=== PATIENT | male | born 1955 | race Caucasian/White ===

== ENCOUNTER → 2016-10-12 | Outpatient (CLI) | payer MEDICARE, OTHER ==
[~2016-10-12] MED LIST: CLOP75TA19 PO; INSU100V27 SQ; INSU100V28 SQ; LISI2.5T2 PO; MELA1TAB8 PO; OMEP20TA24 PO; PRAV20TA4 PO; TAMS0.4C20 PO
== END ==
LOC: NWCC 14:25
PROVIDERS: ATTEND Internal Medicine
DX: T81.89XA Other complications of procedures, not elsewhere classified, initial encounter (principal); Y83.8 Other surgical procedures as the cause of abnormal reaction of the patient, or of later complication, without mention of misadventure at the time of the procedure; W23.0XXS Caught, crushed, jammed, or pinched between moving objects, sequela; M86.171 Other acute osteomyelitis, right ankle and foot; Z89.411 Acquired absence of right great toe
CPT/HCPCS: A6209; A6210; G0463

== ENCOUNTER → 2016-10-18 | Outpatient (CLI) | payer MEDICARE, OTHER | LOC: NWCC 07:52 | PROVIDERS: ATTEND Internal Medicine | DX: S91.101A Unspecified open wound of right great toe without damage to nail, initial encounter (principal); Z89.411 Acquired absence of right great toe | CPT/HCPCS: A6209; A6210; G0463 ==

== ENCOUNTER → 2016-10-29 | Outpatient (CLI) | payer MEDICARE, OTHER | LOC: NWCC 08:29 | PROVIDERS: ATTEND Internal Medicine | DX: T87.89 Other complications of amputation stump (principal); Y83.8 Other surgical procedures as the cause of abnormal reaction of the patient, or of later complication, without mention of misadventure at the time of the procedure; W23.0XXS Caught, crushed, jammed, or pinched between moving objects, sequela; M86.171 Other acute osteomyelitis, right ankle and foot; Z89.411 Acquired absence of right great toe | CPT/HCPCS: 11042; A6209 ==

== ENCOUNTER → 2016-11-02 | Outpatient (CLI) | payer MEDICARE, OTHER | LOC: NWCC 08:32 | PROVIDERS: ATTEND Internal Medicine | DX: T87.9 Unspecified complications of amputation stump (principal); Y83.8 Other surgical procedures as the cause of abnormal reaction of the patient, or of later complication, without mention of misadventure at the time of the procedure; W23.0XXS Caught, crushed, jammed, or pinched between moving objects, sequela | CPT/HCPCS: A6209; A6210; G0463 ==

== ENCOUNTER → 2016-11-05 | Outpatient (CLI) | payer MEDICARE, OTHER ==
[~2016-11-05] MED LIST changes: +CALMOSEPTINE OINTMENT 3.5 G PACKET TOP ONE
== END ==
LOC: NWCC 08:31
PROVIDERS: ATTEND Internal Medicine
DX: T87.9 Unspecified complications of amputation stump (principal); Y83.8 Other surgical procedures as the cause of abnormal reaction of the patient, or of later complication, without mention of misadventure at the time of the procedure; W23.0XXS Caught, crushed, jammed, or pinched between moving objects, sequela; Z89.411 Acquired absence of right great toe; Z89.512 Acquired absence of left leg below knee
CPT/HCPCS: 11042; A6209; A9270

== ENCOUNTER → 2016-11-08 | Outpatient (CLI) | payer MEDICARE, OTHER ==
[~2016-11-08] MED LIST changes: -CALMOSEPTINE OINTMENT 3.5 G PACKET TOP ONE
== END ==
LOC: NWCC 08:24
PROVIDERS: ATTEND Internal Medicine
DX: T87.9 Unspecified complications of amputation stump (principal); Y83.8 Other surgical procedures as the cause of abnormal reaction of the patient, or of later complication, without mention of misadventure at the time of the procedure; Z89.411 Acquired absence of right great toe
CPT/HCPCS: A6209; A6210; G0463

== ENCOUNTER → 2016-11-11 | Outpatient (CLI) | payer MEDICARE, OTHER | LOC: NWCC 08:03 | PROVIDERS: ATTEND Internal Medicine | DX: T87.89 Other complications of amputation stump (principal); Y83.8 Other surgical procedures as the cause of abnormal reaction of the patient, or of later complication, without mention of misadventure at the time of the procedure; E11.42 Type 2 diabetes mellitus with diabetic polyneuropathy; Z89.411 Acquired absence of right great toe | CPT/HCPCS: 11042; A6209 ==

== ENCOUNTER → 2016-11-15 | Outpatient (CLI) | payer MEDICARE, OTHER | LOC: NWCC 07:50 | PROVIDERS: ATTEND Internal Medicine | DX: T87.89 Other complications of amputation stump (principal); Y83.8 Other surgical procedures as the cause of abnormal reaction of the patient, or of later complication, without mention of misadventure at the time of the procedure | CPT/HCPCS: A6209; G0463 ==

== ENCOUNTER → 2016-11-18 | Outpatient (CLI) | payer MEDICARE, OTHER | LOC: NWCC 07:58 | PROVIDERS: ATTEND Internal Medicine | DX: T87.89 Other complications of amputation stump (principal); Y83.8 Other surgical procedures as the cause of abnormal reaction of the patient, or of later complication, without mention of misadventure at the time of the procedure | CPT/HCPCS: A6209; G0463 ==

== ENCOUNTER → 2016-11-22 | Outpatient (CLI) | payer MEDICARE, OTHER | LOC: NWCC 08:26 | PROVIDERS: ATTEND Internal Medicine | DX: T87.89 Other complications of amputation stump (principal); Y83.8 Other surgical procedures as the cause of abnormal reaction of the patient, or of later complication, without mention of misadventure at the time of the procedure; Z89.411 Acquired absence of right great toe; B96.89 Other specified bacterial agents as the cause of diseases classified elsewhere | CPT/HCPCS: 11042; 87070; 87075; 87077; 87147; 87186; 87205; A6021; A6209 ==

== ENCOUNTER → 2016-11-25 | Outpatient (CLI) | payer MEDICARE, OTHER | LOC: NWCC 08:45 | PROVIDERS: ATTEND Internal Medicine | DX: T87.89 Other complications of amputation stump (principal); Y83.8 Other surgical procedures as the cause of abnormal reaction of the patient, or of later complication, without mention of misadventure at the time of the procedure; Z89.411 Acquired absence of right great toe | CPT/HCPCS: A6021; A6209; G0463 ==

== ENCOUNTER → 2016-11-29 | Outpatient (CLI) | payer MEDICARE, OTHER ==
[~2016-11-29] MED LIST changes: +SALINE FLUSH 10ml SYRINGE IVF ONE
== END ==
LOC: NWCC 08:20
PROVIDERS: ATTEND Internal Medicine
DX: T87.89 Other complications of amputation stump (principal); Y83.8 Other surgical procedures as the cause of abnormal reaction of the patient, or of later complication, without mention of misadventure at the time of the procedure; Z89.411 Acquired absence of right great toe
CPT/HCPCS: 11042; A6021; A6209

== ENCOUNTER → 2016-12-02 | Outpatient (CLI) | payer MEDICARE, OTHER ==
[~2016-12-02] MED LIST changes: +CALMOSEPTINE OINTMENT 3.5 G PACKET TOP ONE
== END ==
LOC: NWCC 08:28
PROVIDERS: ATTEND Internal Medicine
DX: T87.89 Other complications of amputation stump (principal); Y83.8 Other surgical procedures as the cause of abnormal reaction of the patient, or of later complication, without mention of misadventure at the time of the procedure; Z89.411 Acquired absence of right great toe
CPT/HCPCS: A6209; A9270; G0463

== ENCOUNTER → 2016-12-06 | Outpatient (CLI) | payer MEDICARE, OTHER ==
[~2016-12-06] MED LIST changes: -SALINE FLUSH 10ml SYRINGE IVF ONE
== END ==
LOC: NWCC 08:24
PROVIDERS: ATTEND Internal Medicine
DX: T87.89 Other complications of amputation stump (principal); Y83.8 Other surgical procedures as the cause of abnormal reaction of the patient, or of later complication, without mention of misadventure at the time of the procedure
CPT/HCPCS: A6209; A9270; G0463

== ENCOUNTER → 2016-12-09 | Outpatient (CLI) | payer MEDICARE, OTHER | LOC: NWCC 14:18 | PROVIDERS: ATTEND Internal Medicine | DX: T87.89 Other complications of amputation stump (principal); Y83.8 Other surgical procedures as the cause of abnormal reaction of the patient, or of later complication, without mention of misadventure at the time of the procedure; Z89.411 Acquired absence of right great toe | CPT/HCPCS: A6021; A6209; A9270; G0463 ==

== ENCOUNTER → 2016-12-13 | Outpatient (CLI) | payer MEDICARE, OTHER ==
[~2016-12-13] MED LIST changes: -CALMOSEPTINE OINTMENT 3.5 G PACKET TOP ONE
== END ==
LOC: NWCC 08:25
PROVIDERS: ATTEND Internal Medicine
DX: T87.89 Other complications of amputation stump (principal); Z89.411 Acquired absence of right great toe; Y83.8 Other surgical procedures as the cause of abnormal reaction of the patient, or of later complication, without mention of misadventure at the time of the procedure
CPT/HCPCS: 11042; A6209

== ENCOUNTER 2017-06-20 09:46 | Inpatient (IN) ==
[2017-06-20] MEDS ORDERED: ONDANSETRON 4 MG/2 ML INJECTION IVP PRN (09:57)
[2017-06-20] MEDS ORDERED: VANCOMYCIN - PHARMACY CONSULT MC ONE (09:57)
[2017-06-20] MEDS ORDERED: ACETAMINOPHEN 325 MG TABLET PO PRN (09:58)
[2017-06-20] MEDS ORDERED: POLYETHYL GLYCOL 3350 17gm PACKET PO PRN (10:04)
[2017-06-20] MEDS ORDERED: BISACODYL 10 MG SUPPOSITORY RECTALLY PRN (10:04)
--- OUTSIDE RECORDS SUMMARY | 2017-06-20 10:17 | External Medical Summary | Continuity of Care Document ---
:1955 Author Organization [facility] Allergies Active Description Code Type Severity Reaction Onset Reported/ Identified Relationship Clinical to Patient Status Yes Penicillins 476 Unknown N/A 07/24/2012 Yes penicillin NKMA N/A Adverse 12/12/2013 Reaction Yes Penicillins Penic Drug Unknown REACTION 04/08/2017 illin Aller UNKNOWN s gy Medications Medication Packaging Start Date Stop Date Route Dosage Sig 10/08/2016 DOCUSATE SODIUM 7 BIDPRN 10/08/2016 ACETAMINOPHEN 7 Q4HPRN 10/08/2016 ACETAMINOPHEN 7 Q4HPRN 10/08/2016 ALUM-MAG 7 HYDROXIDE-SIMETH Q4HPRN 10/08/2016 MAGNESIUM HYDROXIDE 7 HSPRN 10/08/2016 TAMSULOSIN 7 QD 10/08/2016 CLOPIDOGREL 7 QD 10/08/2016 PANTOPRAZOLE 7 ACB 10/08/2016 INSULIN NOVOLOG 7 TIDWM 10/08/2016 HYDROCODONE-ACET 7 5-325MG Q3HPRN 10/08/2016 ONDANSETRON HCL 7 Q6HPRN 10/08/2016 METOCLOPRAMIDE 7 Q6HPRN 10/08/2016 MORPHINE 7 [id number] 10/08/2016 NITROGLYCERIN 7 [id number] 10/08/2016 SODIUM CHLORIDE 0.9 7 C % 10/08/2016 ASPIRIN, BUFFERED 7 QD 10/08/2016 PRAVASTATIN 7 HS 10/08/2016 LORazepam 7 HS 10/08/2016 INSULIN LEVEMIR 7 HS Problems Date Dx Attending Type Code Diagnosis Diagnosed By Coded 10/29/2016 Andrew GALVIN E11.9 TYPE 2 DIABETES HARDEEP GALVIN MELLITUS WITHOUT HARDEEP Donaldson COMPLICATIONS 10/29/2016 Andrew GALVIN E78.5 HYPERLIPIDEMIA, HARDEEP GALVIN UNSPECIFIED HARDEEP Donaldson 10/29/2016 Andrew GALVIN I10 ESSENTIAL (PRIMARY) HARDEEP GALVIN HYPERTENSION HARDEEP Donaldson 10/29/2016 Andrew GALVIN I65.23 OCCLUSION AND HARDEEP GALVIN STENOSIS OF BILATERAL HARDEEP Donaldson CAROTID ARTERIES 10/29/2016 KAMAR, P I70.261 ATHEROSCLEROSIS OF HARDEEP GALVIN TOHONO [place] ARTERIES OF HARDEEP Donaldson EXTREMITIES WITH GANGRENE, RIGHT LEG 10/29/2016 Andrew GALVIN K21.9 GASTRO-ESOPHAGEAL HARDEEP GALVIN REFLUX DISEASE HARDEEP Donaldson WITHOUT ESOPHAGITIS Procedures Encounters ACCT No. Visit Discharge Status Pt. Type Provider Facility Loc./Unit Complaint Date/Time [id number] 09/12/2014 09/12/2014 DIS Outpatient Madeline, [facility] New IC SWOLLEN/SO 11 17:09:00 23:59:00 Simeon Kunz [facility] STOMACH PAIN [id number] 10/08/2016 10/08/2016 DIS Outpatient [facility] [address] GREAT 09:37:00 22:37:00 HARDEEP Person [facility] TOE ULCER, [facility]UIT [id number] 04/15/2017 04/15/2017 DIS Outpatient Arvin ColinOPRA 87 12:30:00 17:10:00 , [facility]
[2017-06-20 10:52] VITALS: BMI 27.2
--- NOTE | 2017-06-20 11:00 | History & Physical Report ---
<Brii Rodriguez - Last Filed: 06/20/17 12:41> History of Present Illness Date: 06/20/17 Chief complaint: Rt foot wound HPI: Mr. Bazzi is a 61 y/o male with a hx of uncontrolled insulin dependent type 2 DM. His A1c has been climbing - 9.6% in January, 10.2% in May, and now 11.2%. He has a left ajicc-hef-ruew amputation and has a prosthetic; typically uses a cane to ambulate. He denies any known injury to the bottom of his foot but did injure his right de jesus on the rungs of a ladder a few weeks ago. Marco thinks that the wounds on his right foot were from putting too much pressure on his foot when he stands and ambulates. His has been providing wound care at home for redness and two small black-colored wounds to the sole of his right foot for the last month. She had been changing the dressings every other day, last done on 06/18/17. He presented for evaluation at the wound clinic on when Dr. Cedeno found that the plantar surface of his foot had opened and subcutaneous tissue was exposed (on a pic on his 's phone it was difficult to see if there was exposed tendon/bone). Labs were drawn and arrangements were made for direct admission. Marco has had subjective fever with chills and sweating at home over the last 2-3 days. He hasn't felt like eating and had an episode of vomiting on 06/18/17. He denies weakness/dizziness. Dr. Velazquez's office note indicated a recent 7-lb weight loss but he can't confirm - his interjected that he always eats bad over the summer and spends a lot of time outdoors and tends to lose some weight. He denies any SOA, chest pain, palpitations, or syncope. No cough/congestion, sore throat, or dysphagia. No abdominal pain, diarrhea, or constipation. Denies dysuria. He had urinary retention requiring cath in March, - this resolved after his prostate was removed. He hasn't had much pain despite his wound. Review of Systems All systems PM: 10-point ROS was reviewed, no additional remarkable complaints except - Constitutional Constitutional: Present: as per HPI, chills, fever(s), weight loss - EENMT Eyes: Present: requires corrective lenses. Absent: change in vision Ears: Present: other (hard of hearing - has hearing aids) Nose: Absent: obstruction Mouth/Throat: Present: other (dentures). Absent: sore throat, sores, changes in swallowing - Cardiovascular Cardiovascular: Absent: chest pain, palpitations Vascular: Absent: pedal edema - Respiratory Respiratory: Absent: cough, wheezing - Gastrointestinal Gastrointestinal: Present: nausea, vomiting. Absent: abdominal pain, constipation, diarrhea - Genitourinary Genitourinary: Present: as per HPI. Absent: dysuria - Musculoskeletal Musculoskeletal: Present: other (left BKA; prosthetic) - Integumentary/Breasts Integumentary: Present: as per HPI, wounds - Neurological Neurological: Present: as per HPI, numbness. Absent: confusion, dizziness, weakness - Psychiatric Psychiatric: Present: anxiety (if he cannot smoke) - Endocrine Endocrine: Absent: palpitations - Allergic/Immunologic Allergic/Immunologic: Absent: seasonal rhinorrhea PFSH Diabetes mellitus type 2, uncontrolled (~1986) (A1c was 11.2% on 06/20/17) Diabetic peripheral neuropathy and nephropathy associated with type 2 diabetes mellitus PVD ED Depression Insomnia GERD BPH with urinary retention Surgical History: Tonsillectomy (~1959). Vasectomy 1997. EGD 2002 - normal. Multiple laryngoscopies. left below-the knee amputation 07/26/[address] Estrada Kelesy. Right big toe amputated and stents placed in right leg in 09/[address] Kelsey. Cystoscopy with prostate removal in 04/[address] Brian Family History: Positive for CAD, HTN, pancreatitis, hypothyroidism and syncope - Social History Smoking status: Current every day smoker (1-2 ppd x36 years) Packs per day: 2 Substance use type: does not use Alcohol intake frequency: does not drink Current occupational status: disabled Medications Home Medications Medication Instructions Recorded Confirmed Type Clopidogrel Bisulfate [Plavix] 75 mg PO DAILY #0 10/27/10 03/24/17 History Lisinopril 2.5 mg PO HS #0 04/21/15 03/24/17 History Insulin Glargine [Lantus] 42 unit SQ HS 03/24/17 03/24/17 History Insulin Lispro [Humalog] 18 unit SQ TIDWM 03/24/17 03/24/17 History Omeprazole 20 mg PO ACB 03/24/17 03/24/17 History Pravastatin [Pravachol] 20 mg PO HS 03/24/17 03/24/17 History Allergies Allergy/AdvReac Type Severity Reaction Status Date / Time Penicillins Allergy Unknown HIVES Verified 05/23/17 15:11 Exam Height/Weight/BMI: Height 1.96 m Weight 104.3 kg Body Mass Index 27.2 - Constitutional Present: no acute distress - Routine HEENT Exam Head: Present: normocephalic Eye: Present: PERRL. Absent: conjunctival icterus ENT: Present: oropharynx clear, nares patent. Absent: dentition normal ( edentulous) - Routine Neck Exam Present: supple. Absent: lymphadenopathy - Routine Respiratory Exam Present: CTA bilaterally - Routine Cardiovascular Exam Present: RRR, S1, S2, murmur (systolic 2/6) - Routine Abdominal Exam Present: soft, normoactive bowel sounds, non distended, non tender - Routine Extremities Exam Present: amputation (left BKA) - Routine Skin Exam Present: dry, warm, wounds (poorly healing abrasions to right de jesus; right foot is covered in bulky dressing) - Routine Neurological Exam Present: alert, oriented X3, CN II-XII intact (grossly), vision grossly intact, hearing grossly intact (slightly hard of hearing), normal speech. Absent: facial asymmetry - Routine Psychiatric Exam Present: normal affect, normal thought process, cooperative Assessment and Plan (1) Wound, open, foot Current visit: Yes Status: Acute Assessment and Plan: IMPRESSION Severe sepsis secondary to diabetic foot wound Diabetes mellitus type 2, uncontrolled (~1986) (A1c was 11.2% on 06/20/17) Diabetic peripheral neuropathy and nephropathy associated with type 2 diabetes mellitus PVD ED Depression Insomnia GERD Tobaccoism PLAN Admit, inpatient status, with consults to Dr. James and Dr. Velazquez. NPO status. CXR and EKG in anticipation of surgery. Sepsis w/u, including labs and cultures. Vanco and gentamicin started after cultures drawn. Severe sepsis criteria include leukocytosis (WBC 16.7), tachycardia (HR 101), and organ dysfunction variable of hyperlactatemia (2.1). Source: right foot wound. Repeat lactate within 6 hours. Give fluid bolus of 500 mL (not hypotensive on admission). Nicotine patch; consult respiratory for tobacco cessation counseling. Hold home meds until surgical plans are finalized. Advanced directives: Marco wishes to name as SYLVESTER, and she's in agreement. Case Management will help them get the appropriate forms filled out and notarized this afternoon. Code status: Full code. Resuscitation Status: Full Code Sepsis Assessment - Evaluation Possible source: skin/soft tissue, wound SIRS Criteria: pulse > or equal to 90 beats/minute, WBC > or equal to 12,000 Severe Sepsis: lactate > or equal to 2.0 mg/dl Hospital Course Summary Disclaimer: The visit summary below is not to be considered part of the above Progress Note. Hospital Course: 06/20/17 IMPRESSION Severe sepsis secondary to diabetic foot wound Diabetes mellitus type 2, uncontrolled (~1986) (A1c was 11.2% on 06/20/17) Diabetic peripheral neuropathy and nephropathy associated with type 2 diabetes mellitus PVD ED Depression Insomnia GERD Tobaccoism PLAN Admit, inpatient status, with consults to Dr. James and Dr. Velazquez. NPO status. CXR and EKG in anticipation of surgery. Sepsis w/u, including labs and cultures. Vanco and gentamicin started after cultures drawn. Severe sepsis criteria include leukocytosis (WBC 16.7), tachycardia (HR 101), and organ dysfunction variable of hyperlactatemia (2.1). Source: right foot wound. Repeat lactate within 6 hours. Give fluid bolus of 500 mL (not hypotensive on admission). Nicotine patch; consult respiratory for tobacco cessation counseling. Hold home meds until surgical plans are finalized. Advanced directives: Marco wishes to name as SYLVESTER, and she's in agreement. Case Management will help them get the appropriate forms filled out and notarized this afternoon. Code status: Full code. 06/20/17 13:05 <James Richmond - Last Filed: 06/20/17 15:19> History of Present Illness Date: 06/20/17 [facility] Patient Stated Medical History Peripheral Neuropathy Yes Cataracts Yes Dental Problems Yes: UPPER AND LOWERS Hearing Loss Yes Macular Degeneration Yes: RT EYE Hypertension Yes Diabetes Mellitus Type 2 Yes: INSULIN DEPENDENT Gastroesophageal Reflux Yes Disease Ulcer Yes Hx Benign Prostatic Yes Hyperplasia Hx Renal Disease No MRSA Yes Clinic Medical History (Last Reviewed 02/01/17 @ 14:42 by Amilcar Velazquez MD) Wound, open, foot (Acute Medical) Diabetes mellitus type 2, controlled (Chronic Medical ~1986) uncertain control, but last A1c was too high (9.6%) 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 Urinary retention (Inactive Medical) Family History: Family History (Last Reviewed 05/23/17 @ 15:12 by Olivia Webb MA) Mother Heart disease Father High blood pressure Exam Vital Signs: Temperature 100 F 06/20/17 10:06 Pulse Rate 101 H 06/20/17 10:06 Respiratory Rate 12 06/20/17 14:37 Blood Pressure 157/71 H 06/20/17 10:06 Pulse Oximetry 95 06/20/17 14:37 Height/Weight/BMI: Height 1.96 m Weight 104.3 kg Body Mass Index 27.2 Results - Labs Microbiology Results: Microbiology 06/20/17 10:20 Peripheral/Iv Start Blood Culture - Preliminary Culture Initiated - Results Pending 06/20/17 10:26 Peripheral/Iv Start Blood Culture - Preliminary Culture Initiated - Results Pending Assessment and Plan (1) Wound, open, foot Current visit: Yes Status: Acute Assessment and Plan: IMPRESSION Severe sepsis secondary to diabetic foot wound Diabetes mellitus type 2, uncontrolled (~1986) (A1c was 11.2% on 06/20/17) Diabetic peripheral neuropathy and nephropathy associated with type 2 diabetes mellitus PVD ED Depression Insomnia GERD Tobaccoism Have independently interviewed and examined pt. Chart reviewed. Case discussed with Dr Kiran, Dr James, and my MANAGER OF MAINTENANCE. Care plan developed with my supervision; agree with above. Developed a spot on bottom of right foot about 3 weeks ago. No pain, but has neuropathy. Contacted wound clinic-apt made for today. 2 days ago, patient reports had significant chills-could not get warms. Has had nausea of and on for last 2 days. Increasing neuropathic pain. Feels more drained and washed out. Not having respiratory difficult-no increased SOA, cough or congestion. Denies chest pressure or pain. No diarrhea-stools slow. Appetite stable. Seen in wound clinic-extensive foot wound found. Patient admitted for treatment. Lungs: decreased bilaterally. No distress on RA. CV: regular AB: soft nt/nd +BS MSE: awake alert appropriate Plan: [place] [facility] [place] of severe sepsis secondary to diabetic foot found. Vancomycin and Gentamicin for antimicrobial coverage. 500cc NS bolus as lactate with elevation (BP preserved). Consult Dr James for wound care - concern patient will need amputation. Monitor lab. Monitor sugars. Tobacco cessation information. DM education and dietary ed. Full code. Care to return to Dr Mo at time of discharge [place] [facility] DVT Prophylaxis: SCD's Hospital Course Summary Disclaimer: The visit summary below is not to be considered part of the above Progress Note. Addendum entered and electronically signed by Brii Rodriguez APRN 06/20/17 13: 08: PICC line was inserted on admission.
--- NOTE | 2017-06-20 11:27 | Pharmacy Consult-Antibiotics ---
Pharmacy Consult-Vancomycin - Consult Information VANCOMYCIN CONSULT: Dx: Diabetic foot ulcer Current Renal Fx: SCr = 1.09mg/dl. Will give Vancomycin 1,750mg IV q12hrs. Trough is expected to be around 18 with this dose. Will continue to monitor and adjust regimen to maintain therapeutic levels. Thank you.
--- NOTE | 2017-06-20 12:27 | XRay Report ---
LOCATION OF DICTATION: [facility] EXAM: XR chest 2V HISTORY: smoking, pre op COMPARISON: No prior studies available for comparison. FINDINGS: The heart size is upper limits normal. The mediastinal configuration is unremarkable. There are no consolidating opacities or pleural effusions. There is no evidence for a pneumothorax. The osseous structures are within normal limits. IMPRESSION: 1. Upper limits normal sized heart without CHF or pneumonia. .
[2017-06-20] MEDS ORDERED: GENTAMICIN - PHARMACY CONSULT MC ONE (12:41)
[2017-06-20] MEDS ORDERED: ALBUTEROL/IPRATROPIUM 2.5mg-0.5mg/3ml NEB IPPB PRN (12:59)
[2017-06-20] MEDS ORDERED: LEVOFLOXACIN PB 500 MG/100 ML BAG IV SCH (13:00)
[2017-06-20] MEDS: HYDROMORPHONE 2 MG/ML INJECTION IVP PRN ×2 (13:44→20:09)
[2017-06-20] MEDS: NS 1,000 ML IV SCH (13:47)
[2017-06-20] MEDS: NICOTINE 21 MG PATCH TD SCH (14:51)
--- NOTE | 2017-06-20 15:20 | Pharmacy Consult-Antibiotics ---
Pharmacy Consult-Gentamicin - Laboratory Information Gentamicin Procalcitonin 1.95 NG/ML 06/20/17 10:23 - Consult Information GENTAMICIN CONSULT: Dx: Diabetic foot ulcer Current Renal Fx: SCr = 1.09mg/dl. We will begin Gentamicin 140mg IV q12hrs. We will continue to monitor and make adjustments accordingly. Thank you.
[2017-06-20] MEDS: GENTAMICIN IV SCH (16:44)
[2017-06-20] MEDS: NS IV SCH (16:44)
--- NOTE | 2017-06-20 16:47 | Orthopedic Consult Note ---
Orthopedic Consultation HPI - Consultation Info Consult Date: 06/20/17 Attending Physician: James Richmond MD Consult Reason: other - History of Present Illness Mr. Bazzi is a kind 61-year-old gentleman who is known to me from previous orthopedic issues. He noticed some black spots on the plantar aspect of the right foot one week ago. He was seen in the wound clinic today and after aggressive debridement had a considerable wound. He was admitted to the hospital under Dr. Taylor and was found to be septic. He has a history of left BKA approximate 5 years ago. He also has a history of right great toe amputation. He's had previous stents placed in his right leg. He is diabetic under the care of Dr. Velazquez. His pain is currently controlled does not remember any new injury. Review of Systems - Constitutional Constitutional: Absent: chills, fever(s), night sweats - Cardiovascular Cardiovascular: Absent: chest pain, palpitations - Respiratory Respiratory: Absent: cough, dyspnea - Gastrointestinal Gastrointestinal: Absent: abdominal pain, nausea, vomiting - Musculoskeletal Musculoskeletal: Present: as per HPI - Integumentary/Breasts Integumentary: Present: as per HPI - Neurological Neurological: Absent: numbness, tingling PFSH Patient Stated Medical History Peripheral Neuropathy Yes Cataracts Yes Dental Problems Yes: UPPER AND LOWERS Hearing Loss Yes Macular Degeneration Yes: RT EYE Hypertension Yes Diabetes Mellitus Type 2 Yes: INSULIN DEPENDENT Gastroesophageal Reflux Yes Disease Ulcer Yes Hx Benign Prostatic Yes Hyperplasia Hx Renal Disease No MRSA Yes Clinic Medical History (Last Reviewed 02/01/17 @ 14:42 by Amilcar Velazquez MD) Wound, open, foot (Acute Medical) Diabetes mellitus type 2, controlled (Chronic Medical ~1986) uncertain control, but last A1c was too high (9.6%) 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 Urinary retention (Inactive Medical) Surgical History: Tonsillectomy (~1959). Vasectomy 1997. EGD 2002 - normal. Multiple laryngoscopies. left below-the knee amputation 07/26/[address] Estrada Kelsey. Right big toe amputated and stents placed in right leg in 09/[address] Kelsey. Cystoscopy with prostate removal in 04/[address] Brian Family History: Family History (Last Reviewed 05/23/17 @ 15:12 by Olivia Webb MA) Mother Heart disease Father High blood pressure - Social History Smoking status: Current every day smoker (1-2 ppd x36 years) Medications Home Medications Medication Instructions Recorded Confirmed Type Clopidogrel Bisulfate [Plavix] 75 mg PO DAILY #0 10/27/10 03/24/17 History Lisinopril 2.5 mg PO HS #0 04/21/15 03/24/17 History Insulin Glargine [Lantus] 42 unit SQ HS 03/24/17 03/24/17 History Insulin Lispro [Humalog] 18 unit SQ TIDWM 03/24/17 03/24/17 History Omeprazole 20 mg PO ACB 03/24/17 03/24/17 History Pravastatin [Pravachol] 20 mg PO HS 03/24/17 03/24/17 History Allergies Allergy/AdvReac Type Severity Reaction Status Date / Time Penicillins Allergy Unknown HIVES Verified 05/23/17 15:11 Orthopedic Exam Vital signs: Temperature 98.8 F 06/20/17 15:46 Pulse Rate 108 H 06/20/17 15:46 Respiratory Rate 18 06/20/17 15:46 Blood Pressure 149/68 H 06/20/17 15:46 Pulse Oximetry 93 06/20/17 15:46 - Constitutional General Appearance: Present: no acute distress, well developed, well nourished - Respiratory Exam Present: non-labored - Cardiovascular Exam Comments: Delayed Refill in all toes. Unable to palpate dorsalis pedis or posterior tibial pulse by hand. - Extremities Exam Present: amputation (left BKA) Comments: Large necrotic ulceration to the plantar aspect of the foot with exposed tendon. Foul odor. Abundant necrotic tissue remains despite recent sharp debridement. There is also superficial abrasions to the anterior de jesus one of which has some mild serosanguineous drainage. - Psychiatric Exam Present: alert, normal affect - Labs Abnormal lab results 06/20/17 Range/Units 10:23 TSH 0.32 L (0.47-4.68) MIU/L Coagulation 06/20/17 Range/Units 10:23 INR 1.09 (0.99-1.21) Impression and Recommendation (1) Diabetic foot ulcer Current visit: Yes Qualifiers: Diabetic foot ulcer location: midfoot Diabetes mellitus type: type 2 Laterality: right Non-pressure ulcer stage: with necrosis of muscle Qualified Code(s): E11.621 - Type 2 diabetes mellitus with foot ulcer; L97.413 - Non-pressure chronic ulcer of right heel and midfoot with necrosis of muscle; L97.413 - Non-pressure chronic ulcer of right heel and midfoot with necrosis of muscle; L97.413 - Non-pressure chronic ulcer of right heel and midfoot with necrosis of muscle; L97.413 - Non-pressure chronic ulcer of right heel and midfoot with necrosis of muscle Status: Acute I had a long discussion with Mr. estes given his current situation. I do not feel that the foot is salvageable. We also discussed possible Syme type amputation given his anterior de jesus wounds I think he would have him much more predictable result with a yjqch-veq-[id number] amputation. He's done well with this on the left side. I reviewed the possibility of the amputation site may not heal and also possibility of placing a wound VAC or felt there is any infection at the level of amputation. He agreed with this plan and we'll schedule surgery for tomorrow. (2) Wound, open, foot Current visit: Yes Status: Acute Hospital Course Summary Disclaimer: The visit summary below is not to be considered part of the above Progress Note. Hospital Course: 06/20/17 IMPRESSION Severe sepsis secondary to diabetic foot wound Diabetes mellitus type 2, uncontrolled (~1986) (A1c was 11.2% on 06/20/17) Diabetic peripheral neuropathy and nephropathy associated with type 2 diabetes mellitus PVD ED Depression Insomnia GERD Tobaccoism PLAN Admit, inpatient status, with consults to Dr. James and Dr. Velazquez. NPO status. CXR and EKG in anticipation of surgery. Sepsis w/u, including labs and cultures. Vanco and gentamicin started after cultures drawn. Severe sepsis criteria include leukocytosis (WBC 16.7), tachycardia (HR 101), and organ dysfunction variable of hyperlactatemia (2.1). Source: right foot wound. Repeat lactate within 6 hours. Give fluid bolus of 500 mL (not hypotensive on admission). Nicotine patch; consult respiratory for tobacco cessation counseling. Hold home meds until surgical plans are finalized. Advanced directives: Marco wishes to name as DPOA, and she's in agreement. Case Management will help them get the appropriate forms filled out and notarized this afternoon. Code status: Full code. 06/20/17 13:05
[2017-06-20] MEDS: NOZIN NASAL SWAB NAS SCH ×2 (16:57→21:13)
[2017-06-20] MEDS ORDERED: INSULIN ASPART 100unit/ml INJECTION SQ SCH (17:30)
--- NOTE | 2017-06-20 18:45 | Consultation ---
DATE OF CONSULT 06/20/2017 REASON FOR CONSULTATION Uncontrolled diabetes. HISTORY OF PRESENT ILLNESS Mr. Bazzi has a history of type 2 diabetes mellitus since around 1986. He was last seen in my office on 05/23/2017 at which time he had finally healed a foot ulcer on his right foot. His diabetes control had worsened, however, with a rise of HgA1c up to 10.2%. On admission to the hospital it was seen to have further increased to 11.2%. He has a left BKA with prosthesis. About two weeks prior to admission he apparently developed a sore on his right foot which his had been providing wound care for at home. He was seen at the wound clinic on the morning of admission where it was found that he had an open ulcer with exposure of subcutaneous tissue. He was directly admitted and just had a PICC line inserted prior to my visit with him. He usually takes Humalog 18 units t.i.d. and Lantus 42 units h.s. for his diabetes. His blood sugar on admission was 271. REVIEW OF SYSTEMS CONSTITUTIONAL: Chills, fever and some weight loss that he usually has every summer. HEENT: Wears corrective lenses. Has partial deafness and wears hearing aids. Also has dentures. CARDIOVASCULAR: No chest pain or palpitations. RESPIRATORY: Without cough or wheezing. GI: Some nausea and vomiting but no abdominal pain, diarrhea or constipation. : No dysuria. MUSCULOSKELETAL: Negative except as above. SKIN: As above. NEUROLOGIC: Poor sensation in right foot. ALLERGIES Penicillins. PAST MEDICAL HISTORY Type 2 diabetes mellitus. Diabetic peripheral neuropathy. Diabetic nephropathy. Peripheral vascular disease. Erectile dysfunction. Depression. Gastroesophageal reflux disease. BPH with urinary retention two months ago. PAST SURGICAL HISTORY Tonsillectomy. Vasectomy. EGD. Left BKA. Right first toe amputation. Stents in right lower extremity. Cystoscopy with prostatectomy in April 2017. FAMILY HISTORY Coronary artery disease, hypertension, pancreatitis, hypothyroidism and syncope. SOCIAL HISTORY Smokes one to two packs per day for 36 years. He does not drink alcohol. He is disabled. PHYSICAL EXAM VITAL SIGNS: Blood pressure 157/71, temperature 100 degrees, pulse 101, respirations 17. GENERAL: Well-developed, thin male. Alert, oriented and in no acute distress. HEENT: Atraumatic, normocephalic. No scleral icterus. Edentulous. NECK: Without thyromegaly or lymphadenopathy. LUNGS: Clear. HEART: Regular rate and rhythm with a 2/6 systolic murmur. ABDOMEN: Normal bowel sounds. Soft without masses or tenderness. EXTREMITIES: Remarkable for left BKA. Right foot is bandaged. NEUROLOGIC: Normal vibratory sensation in both great toes. Monofilament sensation is absent in the right third and fifth metatarsals. PSYCHIATRIC: Normal affect. Normal thought process. Cooperative. ASSESSMENT 1. Type 2 diabetes mellitus, uncontrolled. We will need to titrate his insulin. 2. Peripheral neuropathy. 3. Diabetic nephropathy. 4. Question of hyperthyroidism versus euthyroid sick syndrome. He has a TSH of 0.32. Further testing is necessary. RECOMMENDATIONS Follow fingerstick glucose fasting and two hours PC and titrate insulin for better control to aid in healing. Check free T4 to see whether it is elevated, consistent with primary hyperthyroidism or a little low, consistent with euthyroid sick syndrome. Thank you very much for asking my assistance in caring for this gentleman. I will follow him with you while he remains in the hospital. SHAMIKA
[2017-06-20] MEDS ORDERED: INSULIN DETEMIR 100unit/ml INJECTION SQ SCH (21:00)
[2017-06-21] MEDS: GENTAMICIN IV SCH ×2 (03:26→15:50)
[2017-06-21] MEDS: NS IV SCH ×2 (03:26→15:50)
[2017-06-21] MEDS: HYDROMORPHONE 2 MG/ML INJECTION IVP PRN ×2 (03:34→20:12)
[2017-06-21] MEDS: NOZIN NASAL SWAB NAS SCH ×4 (05:58→23:55)
--- NOTE | 2017-06-21 08:16 | Endocrinology Progress Note ---
Subjective Principal diagnosis: Diabetes mellitus type 2 Interval history: Awaiting foot amputation this afternoon. High blood sugars last night, but I was not notified. Exam Vital signs: Temperature 99.4 F 06/21/17 07:48 Pulse Rate 94 06/21/17 08:08 Respiratory Rate 20 06/21/17 07:48 Blood Pressure 153/69 H 06/21/17 07:48 Pulse Oximetry 95 06/21/17 07:48 - Constitutional no acute distress, disheveled, cooperative - Routine HEENT Exam Head: Present: normocephalic, atraumatic Eye: Present: EOMI ENT: Present: mucous membranes moist - Routine Neck Exam Absent: thyromegaly - Routine Respiratory Exam Absent: wheezes - Routine Cardiovascular Exam Present: RRR - Routine Abdominal Exam Present: normoactive bowel sounds - Routine Extremities Exam Absent: pulses intact Comments: Cool pulseless right foot with blue 2nd toe. - Routine Skin Exam Comments: Ulcer beneath right 2nd MT. - Routine Neurological Exam Present: oriented X3, sensory deficit. Absent: hearing grossly intact right foot - Routine Psychiatric Exam Present: normal affect, normal thought process, good insight, good judgment - Additional findings Additional findings: Laboratory Tests 06/20/17 06/20/17 06/20/17 10:26 15:40 21:08 Glucometer 271 281 340 06/21/17 05:55 Glucometer 299 Assessment and Plan (1) Type 2 diabetes mellitus, uncontrolled Current visit: Yes Status: Chronic Needs all doses of insulin increased. Spoke with nurse about failure to notify me of BS>200 in orders. (2) Abnormal TSH Current visit: Yes Status: Acute Will see whether FT4 and FT3 help to show either euthyroid sick syndrome or subclinical hyperthyroidism. (3) Diabetic foot ulcer Current visit: Yes Status: Acute Amputation planned for this afternoon. (4) senior care current use of insulin Current visit: No Status: Chronic
[2017-06-21] MEDS: INSULIN ASPART 100unit/ml INJECTION SQ SCH ×3 (09:10→20:04)
[2017-06-21] MEDS: NICOTINE 21 MG PATCH TD SCH (09:12)
[2017-06-21] MEDS ORDERED: INSULIN ASPART 100unit/ml INJECTION SQ ONE (11:00)
--- NOTE | 2017-06-21 11:01 | Progress Note ---
<Ruthie Geronimo Anika - Last Filed: 06/21/17 10:55> - Date 06/21/17 Subjective: Marco is seen this morning in follow up for his uncontrolled blood sugars and right foot ulceration. He is scheduled for BTK amputation today with Dr. James. He denies any physical complaints including no chest pain, shortness of breath, abdominal pain, nausea, vomiting or dysuria. He remains NPO in light of the anticipated surgery today. Review of his recent labs revealed persistent uncontrolled blood sugars over night ranging from 271-340. Marco was seen and evaluated by Dr. Velazquez this morning who adjusted his insulin, increasing his NovoLog from 18 units to 21 units TID and increasing his Levemir from 42 units to 46 units at night. On exam, his blood sugar was noted to be 201 per nursing. Labs today revealed improvement in his leukocytosis and improvement in his lactate and procalcitonin. He remains on vancomycin, Levaquin and gentamicin. He denies any new tinnitus or hearing loss, rash or itching. He talked at length about his concerns about how he is financially going to be able to afford the equipment he will need following his surgery as well as " what is he going to do now". Objective Vital signs: Temperature 99.4 F 06/21/17 07:48 Pulse Rate 94 06/21/17 08:08 Respiratory Rate 20 06/21/17 07:48 Blood Pressure 153/69 H 06/21/17 07:48 Pulse Oximetry 95 06/21/17 07:48 Height/Weight/BMI: Height 6 ft 5 in Weight 233 lb 3.985 oz Body Mass Index 27.2 - Constitutional Present: no acute distress, well nourished, well developed, cooperative Comments: appears emotionally down - Routine HEENT Exam Head: Present: normocephalic, atraumatic Eye: Present: PERRL, conjunctival icterus ENT: Present: mucous membranes dry - Routine Respiratory Exam Present: CTA bilaterally. Absent: stridor, wheezes, crackles, distant breath sounds - Routine Cardiovascular Exam Present: RRR, S1, S2 - Routine Abdominal Exam Present: soft, normoactive bowel sounds, non tender - Routine Extremities Exam Present: non tender, full ROM Comments: left BTK amputation noted; right foot bandage intact, clean and dry - not removed for exam given upcoming surgery. - Routine Back/Spine/Pelvis Exam Back/Spine: Present: full ROM. Absent: vertebral tenderness - Routine Musculoskeletal Exam Musculoskeletal: Present: moving extremities well - Routine Skin Exam Present: dry, warm. Absent: jaundice - Routine Neurological Exam Present: alert, oriented X3, moving all extremities, normal speech. Absent: facial asymmetry slightly hard of hearing on exam which he reports is normal. - Routine Lymphatic Exam Lymphatic: Absent: lymphedema - Routine Psychiatric Exam Present: cooperative, good insight, good judgment Comments: slightly depressed and anxious. Results - Labs CBC & Chem 7: 06/21/17 04:07 06/21/17 04:07 Microbiology Results: Microbiology 06/20/17 10:20 Peripheral/Iv Start Blood Culture - Preliminary No Growth After 1 Day 06/20/17 10:26 Peripheral/Iv Start Blood Culture - Preliminary No Growth After 1 Day Assessment and Plan (1) Wound, open, foot Current visit: Yes Status: Acute Assessment and Plan: IMPRESSION Severe sepsis secondary to diabetic foot wound, improving. Diabetes mellitus type 2, uncontrolled (~1986) (A1c was 11.2% on 06/20/17) Diabetic peripheral neuropathy and nephropathy associated with type 2 diabetes mellitus PVD ED Depression Insomnia GERD Tobaccoism Plan-05/21/17: Marco is scheduled for BTK amputation to his right lower leg today by Dr. James. He appears down, which is to be expected and expresses anxiety about what the future holds, particularly regarding finances. Encourage working with case management and making his home needs known, including wheelchair. Review of labs revealed persistent uncontrolled, hyperglycemia. Patient has been seen and evaluated by Dr. Velazquez who increased all of his insulins - NovoLog was increased to 21 units from 18 units TID and Levemir was increased to 46 units from 42 units. Continue to monitor trends and monitor closely. Appreciate Dr. Velazquez's time and expertise. Leukocytosis improving. Lactate and procalcitonin trending down. Low grade temperature noted at 99.4. Continue to monitor closely. Will recheck CBC and BMP in AM to monitor blood counts, electrolytes and renal function. TSH at 0.32 with T3 and T4 pending. Dr. Velazquez managing. Continue antimicrobial treatment with gentamicin, Levaquin and vancomycin. Blood cultures pending. Patient denies signs/symptoms of ototoxicity. Continue to monitor closely. Recommend monitoring patient's mood closely given the situation as he is at high risk for severe depression. May consider psychiatric consult and/or initiation of antidepressant. Will discuss with Dr. Chahal. Care to return to Dr Mo [place] [facility] [place] Resuscitation Status: Full Code - Time spent with patient Time with patient PN: 35 minutes Hospital Course Summary Disclaimer: The visit summary below is not to be considered part of the above Progress Note. Hospital Course: 06/20/17 IMPRESSION Severe sepsis secondary to diabetic foot wound Diabetes mellitus type 2, uncontrolled (~1986) (A1c was 11.2% on 06/20/17) Diabetic peripheral neuropathy and nephropathy associated with type 2 diabetes mellitus PVD ED Depression Insomnia GERD Tobaccoism PLAN Admit, inpatient status, with consults to Dr. James and Dr. Velazquez. NPO status. CXR and EKG in anticipation of surgery. Sepsis w/u, including labs and cultures. Vanco and gentamicin started after cultures drawn. Severe sepsis criteria include leukocytosis (WBC 16.7), tachycardia (HR 101), and organ dysfunction variable of hyperlactatemia (2.1). Source: right foot wound. Repeat lactate within 6 hours. Give fluid bolus of 500 mL (not hypotensive on admission). Nicotine patch; consult respiratory for tobacco cessation counseling. Hold home meds until surgical plans are finalized. Advanced directives: Marco wishes to name as SYLVESTER, and she's in agreement. Case Management will help them get the appropriate forms filled out and notarized this afternoon. Code status: Full code. 06/20/17 13:05 Plan-05/21/17: Marco is scheduled for BTK amputation to his right lower leg today by Dr. James. He appears down, which is to be expected and expresses anxiety about what the future holds, particularly regarding finances. Encourage working with case management and making his home needs known, including wheelchair. Review of labs revealed persistent uncontrolled, hyperglycemia. Patient has been seen and evaluated by Dr. Velazquez who increased all of his insulins - NovoLog was increased to 21 units from 18 units TID and Levemir was increased to 46 units from 42 units. Continue to monitor trends and monitor closely. Appreciate Dr. Velazquez's time and expertise. Leukocytosis improving. Lactate and procalcitonin trending down. Low grade temperature noted at 99.4. Continue to monitor closely. Will recheck CBC and BMP in AM to monitor blood counts, electrolytes and renal function. TSH at 0.32 with T3 and T4 pending. Dr. Velazquez managing. Continue antimicrobial treatment with gentamicin, Levaquin and vancomycin. Blood cultures pending. Patient denies signs/symptoms of ototoxicity. Continue to monitor closely. Recommend monitoring patient's mood closely given the situation as he is at high risk for severe depression. May consider psychiatric consult and/or initiation of antidepressant. Will discuss with Dr. Chahal. Care to return to Dr Mo at [place] [facility] [place] <Neha Chahal - Last Filed: 06/21/17 19:33> - Date 06/21/17 Objective Vital signs: Temperature 99.0 F 06/21/17 14:45 Pulse Rate 97 06/21/17 14:45 Respiratory Rate 20 06/21/17 14:45 Blood Pressure 186/80 H 06/21/17 14:45 Pulse Oximetry 95 06/21/17 14:45 Height/Weight/BMI: Height 1.96 m Weight 105.8 kg Body Mass Index 27.2 Results - Labs CBC & Chem 7: 06/21/17 04:07 06/21/17 04:07 Microbiology Results: Microbiology 06/20/17 10:20 Peripheral/Iv Start Blood Culture - Preliminary No Growth After 1 Day 06/20/17 10:26 Peripheral/Iv Start Blood Culture - Preliminary No Growth After 1 Day Assessment and Plan (1) Wound, open, foot Current visit: Yes Status: Acute Assessment and Plan: I have independently evaluated and examined this patient. I reviewed the chart, the patient's history, and the CAREER RESOURCE SPECIALIST/PA's documented findings as above. We discussed and formulated the assessment and plan as above with additions as below: Marco was awaiting surgery when seen midafternoon. He denied pain, chest pain, or dyspnea. Blood sugar was improved following significant hyperglycemia this morning. Respirations are nonlabored with clear breath sounds. Regular rhythm. PICC right upper extremity-insertion site clean. Prior amputation of the right great toe, plantar surface of right forefoot and right toes are dusky, wound is dressed. Foul odor associated with diabetic wound. White count 16.7-13.0, lactic acid trending down. EKG with low-grade sinus tachycardia but no acute ST/T-wave changes by my review. Blood sugar prior to leaving to the OR 85. For debridement/amputation. Outpatient wound culture with gram-positive cocci in pairs, staph aureus on culture; anticipate surgical cultures to be obtained today. Do not anticipate continuing gentamicin based on preliminary culture results although may require anaerobic coverage. Multiple discussions with nursing through the day. Hospital Course Summary Disclaimer: The visit summary below is not to be considered part of the above Progress Note.
[2017-06-21] MEDS: NICOTINE PATCH REMOVAL TD SCH (13:17)
[2017-06-21] MEDS: NS 1,000 ML IV SCH ×3 (14:27→20:23)
--- NOTE | 2017-06-21 17:57 | Anesthesia Preoperative Report ---
Anesthesia Preoperative Record - Date and Time Date: 06/21/17 Preoperative Diagnosis: Rt diabetic ft wound Proposed Procedure: right Below knee amputation Allergies/Adverse Reactions: Allergies Allergy/AdvReac Type Severity Reaction Status Date / Time Penicillins Allergy Unknown HIVES Verified 05/23/17 15:11 - Vital Signs Vital Signs: Temperature 99.0 F 06/21/17 14:45 Pulse Rate 97 06/21/17 14:45 Respiratory Rate 20 06/21/17 14:45 Blood Pressure 186/80 H 06/21/17 14:45 Pulse Oximetry 95 06/21/17 14:45 Height and Weight: Height 1.96 m Weight 105.8 kg Body Mass Index 27.2 - Medications Inpatient Medications: Current Medications Acetaminophen (Tylenol) 650 mg PO Q5H PRN PRN Reason: Discomfort Albuterol/Ipratropium (Duoneb) 3 ml IPPB RTQID PRN Last Admin: 06/20/17 14:35 Dose: 3 ml Bisacodyl (Dulcolax) 10 mg RECTALLY DAILY PRN PRN Reason: Constipation Hydromorphone HCl (Dilaudid) 0.5 mg IVP Q3H PRN PRN Reason: Pain Last Admin: 06/21/17 03:34 Dose: 0.5 mg Sodium Chloride (Normal Saline) 1,000 mls @ 50 mls/hr IV .Q20H [facility] Last Infusion: 06/21/17 16:56 Dose: Infused Vancomycin HCl 1,750 mg/ (Sodium Chloride) 500 mls @ 250 mls/hr IV Q12H [facility] Last Infusion: 06/21/17 15:48 Dose: Infused Gentamicin Sulfate 140 mg/ (Sodium Chloride) 103.5 mls @ 200 mls/hr IV Q12H [facility] Last Infusion: 06/21/17 16:28 Dose: Infused Sodium Chloride (Normal Saline) 1,000 mls @ 50 mls/hr IV .Q20H [facility] Last Admin: 06/21/17 17:00 Dose: 50 mls/hr Insulin Aspart (Novolog) 21 unit SQ TIDWM [facility] Last Admin: 06/21/17 13:19 Dose: Not Given Insulin Detemir (Levemir) 46 unit SQ HS SHAHRZAD Isopropyl Alcohol (Nozin Nasal Swab) 1 each RENNY 0600,1400,2200 [facility] Last Admin: 06/21/17 14:50 Dose: 3 each Lorazepam (Ativan Inj) 0.5 mg IVP Q6H PRN Last Admin: 06/20/17 23:56 Dose: 0.5 mg Magnesium Hydroxide (Mom) 30 ml PO DAILY PRN PRN Reason: Constipation Nicotine (Nicoderm) 21 mg TD DAILY [facility] Last Admin: 06/21/17 09:12 Dose: Not Given Nicotine (Nicotine Patch Removal) 1 removal TD DAILY [facility] Last Admin: 06/21/17 13:17 Dose: Not Given Ondansetron HCl (Zofran) 4 mg IVP Q6H PRN PRN Reason: Nausea Polyethylene Glycol (Miralax) 17 gm PO DAILY PRN PRN Reason: Constipation Home Medications: Home Medications Medication Instructions Recorded Confirmed Type Clopidogrel Bisulfate [Plavix] 75 mg PO DAILY #0 10/27/10 03/24/17 History Lisinopril 2.5 mg PO HS #0 04/21/15 03/24/17 History Insulin Glargine [Lantus] 42 unit SQ HS 03/24/17 03/24/17 History Insulin Lispro [Humalog] 18 unit SQ TIDWM 03/24/17 03/24/17 History Omeprazole 20 mg PO ACB 03/24/17 03/24/17 History Pravastatin [Pravachol] 20 mg PO HS 03/24/17 03/24/17 History Is Patient on Beta Ricardo?: No - Medical History Respiratory: Reports: Chronic Obstructive Pulmonary Disease (COPD) Cardiovascular: Reports: Hypertension, High Cholesterol Renal/Endocrine: Reports: Diabetes Mellitus Type 1 - Surgical History Cardiac Surgeries/Treatments: DENIES: Pacemaker Reproductive Surgery/Treatment: DENIES: Mastectomy Anesthesia Reactions: None Hx Family Anesthesia Reaction: No History of Motion Sickness: No - Social History Smoking Status: Current every day smoker (1-2 ppd x36 years) Packs per day: 1 Pack-years: 40 Hx Chewing Tobacco Use: No Second Hand Exposure: No Substance Use Type: does not use Alcohol Intake Frequency: does not drink - Pertinent Findings Laboratory: CBC and BMP 06/21/17 04:07 06/21/17 04:07 BMP 06/21/17 04:07 Sodium 135 Potassium 3.8 Chloride 101 Carbon Dioxide 27 BUN 21.0 H Creatinine 1.2 Glucose 289 H Calcium 8.2 L EKG: Sinus Rhythm - Physical Exam Respiratory Exam: Present: lungs clear Cardiovascular Exam: Present: regular rate and rhythm, systolic murmur - Airway Assessment TMD: 3 Fingerbreadths Neck Extension: good Teeth: upper dentures, lower dentures Overall Assessment: no airway concerns - ASA ASA Score: 3 - Plan Anesthesia: General Inhalation Gases - Discussion Discussion: Discussed risks/options/alternatives of anesthesia and questions answered. Patient consents. Nursing pain assessment noted. Attestation Statement: Prior to the delivery of any anesthetic medication, I examined the patient, developed the plan, obtained the patient's consent and discussed the risk and benefits of the procedure with the patient/guardian. - Additional Information Seen by Anesthesia: Yes
[2017-06-21] MEDS ORDERED: PROPOFOL 20 ML ONE (18:06)
[2017-06-21] MEDS ORDERED: FentaNYL 100 MCG/2 ML INJECTION ONE (18:22)
[2017-06-21] MEDS ORDERED: HYDROMORPHONE 2 MG/ML INJECTION ONE (18:38)
--- NOTE | 2017-06-21 19:49 | Anesthesia Postoperative Note ---
- Date and Time Date: 06/21/17 Time: 19:49 - Status Patient Participated in Evaluation: Patient Participated in Person Vital Signs: Temperature 99.0 F 06/21/17 14:45 Pulse Rate 97 06/21/17 14:45 Respiratory Rate 20 06/21/17 14:45 Blood Pressure 186/80 H 06/21/17 14:45 Pulse Oximetry 95 06/21/17 14:45 Respiratory Function: Airway Patent Cardiovascular Function: Regular Pulse EKG: Sinus Rhythm Mental Status: Alert and Oriented Pain Intensity: 4 Hydration: Taking PO Fluids, IV Infusing Complications During Recover: None Apparent - Follow-Up Instructions Instructions: Per Surgeon
[2017-06-21] MEDS: INSULIN DETEMIR 100unit/ml INJECTION SQ SCH (20:24)
[2017-06-21] MEDS: HYDROCODONE/APAP 7.5 MG/325 MG TABLET PO PRN (23:54)
[2017-06-22] MEDS: NS IV SCH ×2 (03:07→15:55)
[2017-06-22] MEDS: GENTAMICIN IV SCH ×2 (03:07→15:55)
[2017-06-22] MEDS: NOZIN NASAL SWAB NAS SCH ×3 (05:09→21:26)
[2017-06-22] MEDS: NS 1,000 ML IV SCH ×2 (05:09→16:50)
[2017-06-22] MEDS: HYDROCODONE/APAP 7.5 MG/325 MG TABLET PO PRN ×3 (05:56→21:26)
[2017-06-22] MEDS: HYDROMORPHONE 2 MG/ML INJECTION IVP PRN ×2 (07:20→15:47)
--- NOTE | 2017-06-22 08:02 | Orthopedic Progress Note ---
Date: Subjective/Severity of Illness: Mr Bazzi has some pain as expected but he is tolerating it okay. Denies any CP or SOA. He feels tired this AM. Blood sugars up this AM but he had a turkey sandwich at midnight. No other concerns at this time. Orthopedic Objective PO Vital signs: Temperature 96.3 F L 06/22/17 03:28 Pulse Rate 81 06/22/17 06:00 Respiratory Rate 16 06/22/17 03:28 Blood Pressure 138/76 06/22/17 03:28 Pulse Oximetry 96 06/22/17 03:28 Height and Weight: Height 6 ft 5 in Weight 233 lb 3.985 oz Body Mass Index 27.2 - Constitutional General Appearance: Present: alert, no acute distress, well developed, well nourished - Respiratory Exam Present: non-labored - Surgical Site Incision: dressing intact, no drainage - Psychiatric Exam Present: alert, normal affect - Labs Result Diagrams: 06/22/17 04:20 06/22/17 04:20 Abnormal lab results 06/22/17 06/22/17 Range/Units 04:20 04:20 RBC 3.49 L (4.50-5.90) M/MM3 Hgb 10.1 L (13.5-17.5) GM/DL Hct 31.2 L (41-53) % Immature Gran % (Auto) 0.8 H (0.0-0.5) % Abs Immat Gran (auto) 0.08 H (0.00-0.03) T/MM3 Glucose 232 H (75-110) MG/DL Calcium 8.0 L (8.4-10.2) MG/DL H & H 06/21/17 06/22/17 Range/Units 04:07 04:20 Hgb 11.0 L D 10.1 L (13.5-17.5) GM/DL Hct 33.7 L D 31.2 L (41-53) % Coagulation 06/20/17 Range/Units 10:23 INR 1.09 (0.99-1.21) Orthopedic Assessment and Plan (1) Diabetic foot ulcer Status: Acute Qualifiers: Diabetic foot ulcer location: midfoot Diabetes mellitus type: type 2 Laterality: right Non-pressure ulcer stage: with necrosis of muscle Qualified Code(s): E11.621 - Type 2 diabetes mellitus with foot ulcer; L97.413 - Non-pressure chronic ulcer of right heel and midfoot with necrosis of muscle; L97.413 - Non-pressure chronic ulcer of right heel and midfoot with necrosis of muscle; L97.413 - Non-pressure chronic ulcer of right heel and midfoot with necrosis of muscle; L97.413 - Non-pressure chronic ulcer of right heel and midfoot with necrosis of muscle Assessment and Plan: Will consult [facility] today for stump care. Mobilize with PT / OT. He can wear his artificial leg on the left side to assist with txfrs. Medical care per hospitalist service and Dr Velazquez. Anticoagulation per hospitalist recommendations. (2) Wound, open, foot Status: Acute - Anticoagulation Therapy Anticoagulation: other Hospital Course Summary Disclaimer: The visit summary below is not to be considered part of the above Progress Note. Hospital Course: 06/20/17 IMPRESSION Severe sepsis secondary to diabetic foot wound Diabetes mellitus type 2, uncontrolled (~1986) (A1c was 11.2% on 06/20/17) Diabetic peripheral neuropathy and nephropathy associated with type 2 diabetes mellitus PVD ED Depression Insomnia GERD Tobaccoism PLAN Admit, inpatient status, with consults to Dr. James and Dr. Velazquez. NPO status. CXR and EKG in anticipation of surgery. Sepsis w/u, including labs and cultures. Vanco and gentamicin started after cultures drawn. Severe sepsis criteria include leukocytosis (WBC 16.7), tachycardia (HR 101), and organ dysfunction variable of hyperlactatemia (2.1). Source: right foot wound. Repeat lactate within 6 hours. Give fluid bolus of 500 mL (not hypotensive on admission). Nicotine patch; consult respiratory for tobacco cessation counseling. Hold home meds until surgical plans are finalized. Advanced directives: Marco wishes to name as DPSHAD, and she's in agreement. Case Management will help them get the appropriate forms filled out and notarized this afternoon. Code status: Full code. 06/20/17 13:05 Plan-05/21/17: Marco is scheduled for BTK amputation to his right lower leg today by Dr. James. He appears down, which is to be expected and expresses anxiety about what the future holds, particularly regarding finances. Encourage working with case management and making his home needs known, including wheelchair. Review of labs revealed persistent uncontrolled, hyperglycemia. Patient has been seen and evaluated by Dr. Velazquez who increased all of his insulins - NovoLog was increased to 21 units from 18 units TID and Levemir was increased to 46 units from 42 units. Continue to monitor trends and monitor closely. Appreciate Dr. Velazquez's time and expertise. Leukocytosis improving. Lactate and procalcitonin trending down. Low grade temperature noted at 99.4. Continue to monitor closely. Will recheck CBC and BMP in AM to monitor blood counts, electrolytes and renal function. TSH at 0.32 with T3 and T4 pending. Dr. Velazquez managing. Continue antimicrobial treatment with gentamicin, Levaquin and vancomycin. Blood cultures pending. Patient denies signs/symptoms of ototoxicity. Continue to monitor closely. Recommend monitoring patient's mood closely given the situation as he is at high risk for severe depression. May consider psychiatric consult and/or initiation of antidepressant. Will discuss with Dr. Chahal. Care to return to Dr Mo at [place] [facility] [place]
--- NOTE | 2017-06-22 08:08 | Endocrinology Progress Note ---
Subjective Principal diagnosis: Diabetes mellitus type 2 Interval history: Mr Bazzi has some pain as expected but he is tolerating it okay. Denies any CP or SOA. He feels tired this AM. Blood sugars up this AM but he had a turkey sandwich at midnight. Would like to have telemetry leads removed. Exam Vital signs: Temperature 96.3 F L 06/22/17 03:28 Pulse Rate 81 06/22/17 06:00 Respiratory Rate 16 06/22/17 03:28 Blood Pressure 138/76 06/22/17 03:28 Pulse Oximetry 96 06/22/17 03:28 - Constitutional no acute distress, well nourished, well developed - Routine HEENT Exam Head: Present: normocephalic, atraumatic Eye: Present: EOMI ENT: Present: mucous membranes moist - Routine Neck Exam Absent: thyromegaly - Routine Respiratory Exam Absent: dyspnea - Routine Cardiovascular Exam Present: RRR - Routine Abdominal Exam Present: normoactive bowel sounds - Routine Extremities Exam Present: amputation (bilateral BKA, right stump bandaged) - Routine Skin Exam Present: dry, warm - Routine Neurological Exam Present: alert, oriented X3 - Routine Psychiatric Exam Present: normal affect, normal thought process - Additional findings Additional findings: Laboratory Tests 06/21/17 06/21/17 06/21/17 10:44 14:16 17:52 Glucometer 201 85 134 06/21/17 06/21/17 06/22/17 19:47 20:29 05:59 Glucometer 140 172 222 Laboratory Tests 06/20/17 10:23 Free T4 1.71 Free T3 3.08 Assessment and Plan (1) Type 2 diabetes mellitus, uncontrolled Current visit: Yes Status: Chronic Better control, except after midnight snack. No changes needed. (2) Abnormal TSH Current visit: Yes Status: Acute Normal FT4 and FT3 suggest TSH may have been low from euthyroid sick syndrome. No intervention needed, but should have TSH rechecked after healed from surgery. (3) Diabetic foot ulcer Current visit: Yes Status: Resolved Stable s/p BKA. (4) assisted current use of insulin Current visit: No Status: Chronic
[2017-06-22] MEDS: INSULIN ASPART 100unit/ml INJECTION SQ SCH ×3 (08:51→18:26)
[2017-06-22] MEDS: NICOTINE 21 MG PATCH TD SCH (08:52)
[2017-06-22] MEDS: NICOTINE PATCH REMOVAL TD SCH (08:53)
--- NOTE | 2017-06-22 09:46 | Progress Note ---
<Loyda Day V - Last Filed: 06/22/17 09:43> - Date 06/22/17 Subjective: Mr Bazzi is seen this morning in follow up. He is very fatigued and feels that he has not been able to sleep well. He is without pain during examination. RLE stump with dressing intact. Denies feeling short of breath or GI complaints. Objective Vital signs: Temperature 96.3 F L 06/22/17 07:15 Pulse Rate 75 06/22/17 07:15 Respiratory Rate 16 06/22/17 07:15 Blood Pressure 157/75 H 06/22/17 07:15 Pulse Oximetry 99 06/22/17 07:15 Rhythm: Normal Sinus Rhythm Height/Weight/BMI: Height 1.96 m Weight 105.8 kg Body Mass Index 27.2 - Constitutional Present: no acute distress, well nourished, well developed - Routine HEENT Exam Eye: Present: EOMI ENT: Present: mucous membranes moist, dentition normal - Routine Respiratory Exam Present: CTA bilaterally. Absent: wheezes - Routine Cardiovascular Exam Present: RRR, S1, S2. Absent: murmur - Routine Abdominal Exam Present: soft, normoactive bowel sounds, non distended. Absent: tenderness - Routine Extremities Exam Comments: LLE- chronic BKA RLE- Acute BKA- Dressing intact- No evidence of bleeding - Routine Skin Exam Present: intact, dry, warm - Routine Neurological Exam Present: alert, oriented X3, CN II-XII intact - Routine Lymphatic Exam Lymphatic: Absent: adenopathy - Routine Psychiatric Exam Present: normal affect, cooperative Results - Labs CBC & Chem 7: 06/22/17 04:20 06/22/17 04:20 Microbiology Results: Microbiology 06/20/17 10:20 Peripheral/Iv Start Blood Culture - Preliminary No Growth After 1 Day 06/20/17 10:26 Peripheral/Iv Start Blood Culture - Preliminary No Growth After 1 Day Assessment and Plan (1) Wound, open, foot Current visit: Yes Status: Acute Assessment and Plan: IMPRESSION Severe sepsis secondary to diabetic foot wound Diabetes mellitus type 2, uncontrolled (~1986) (A1c was 11.2% on 06/20/17) Diabetic peripheral neuropathy and nephropathy associated with type 2 diabetes mellitus PVD ED Depression Insomnia GERD Tobaccoism Plan 06/22 Telemetry reviewed-NSR- Will discontinue telemetry Leukocytosis improved, white count 9.8. Intended to monitor Accu-Cheks. NovoLog 23 units with meals and Levemir 46 units at at bedtime Will add melatonin for at bedtime to help with sleep. This is patient's largest complaint today. Consultation placed for PT/OT evaluation today. He may be a good candidate for IRU given prior prosthetic with new amputation. Case discussed with attending, nursing and IRU director. Hospital Course Summary Disclaimer: The visit summary below is not to be considered part of the above Progress Note. Hospital Course: 06/20/17 IMPRESSION Severe sepsis secondary to diabetic foot wound Diabetes mellitus type 2, uncontrolled (~1986) (A1c was 11.2% on 06/20/17) Diabetic peripheral neuropathy and nephropathy associated with type 2 diabetes mellitus PVD ED Depression Insomnia GERD Tobaccoism PLAN Admit, inpatient status, with consults to Dr. James and Dr. Velazquez. NPO status. CXR and EKG in anticipation of surgery. Sepsis w/u, including labs and cultures. Vanco and gentamicin started after cultures drawn. Severe sepsis criteria include leukocytosis (WBC 16.7), tachycardia (HR 101), and organ dysfunction variable of hyperlactatemia (2.1). Source: right foot wound. Repeat lactate within 6 hours. Give fluid bolus of 500 mL (not hypotensive on admission). Nicotine patch; consult respiratory for tobacco cessation counseling. Hold home meds until surgical plans are finalized. Advanced directives: Marco wishes to name as DPOA, and she's in agreement. Case Management will help them get the appropriate forms filled out and notarized this afternoon. Code status: Full code. 06/20/17 13:05 Plan-05/21/17: Marco is scheduled for BTK amputation to his right lower leg today by Dr. James. He appears down, which is to be expected and expresses anxiety about what the future holds, particularly regarding finances. Encourage working with case management and making his home needs known, including wheelchair. Review of labs revealed persistent uncontrolled, hyperglycemia. Patient has been seen and evaluated by Dr. Velazquez who increased all of his insulins - NovoLog was increased to 21 units from 18 units TID and Levemir was increased to 46 units from 42 units. Continue to monitor trends and monitor closely. Appreciate Dr. Velazquez's time and expertise. Leukocytosis improving. Lactate and procalcitonin trending down. Low grade temperature noted at 99.4. Continue to monitor closely. Will recheck CBC and BMP in AM to monitor blood counts, electrolytes and renal function. TSH at 0.32 with T3 and T4 pending. Dr. Velazquez managing. Continue antimicrobial treatment with gentamicin, Levaquin and vancomycin. Blood cultures pending. Patient denies signs/symptoms of ototoxicity. Continue to monitor closely. Recommend monitoring patient's mood closely given the situation as he is at high risk for severe depression. May consider psychiatric consult and/or initiation of antidepressant. Will discuss with Dr. Chahal. Care to return to Dr Mo at time of discharge from [facility] [place]. Plan 06/21 White count 16.7-13.0, lactic acid trending down. EKG with low-grade sinus tachycardia but no acute ST/T-wave changes by my review. Blood sugar prior to leaving to the OR 85. For debridement/amputation. Outpatient wound culture with gram-positive cocci in pairs, staph aureus on culture; anticipate surgical cultures to be obtained today. Do not anticipate continuing gentamicin based on preliminary culture results although may require anaerobic coverage. Multiple discussions with nursing through the day. Plan 06/22 Telemetry reviewed-NSR- Will discontinue telemetry Leukocytosis improved, white count 9.8. Intended to monitor Accu-Cheks. NovoLog 23 units with meals and Levemir 46 units at at bedtime Will add melatonin for at bedtime to help with sleep. This is patient's largest complaint today. Consultation placed for PT/OT evaluation today. He may be a good candidate for IRU given prior prosthetic with new amputation. Case discussed with attending, nursing and IRU director. <James Richmond D - Last Filed: 06/22/17 16:37> - Date 06/22/17 Objective Vital signs: Temperature 96.9 F 06/22/17 15:28 Pulse Rate 96 06/22/17 15:28 Respiratory Rate 16 06/22/17 15:28 Blood Pressure 165/72 H 06/22/17 15:28 Pulse Oximetry 99 06/22/17 15:28 Height/Weight/BMI: Height 1.96 m Weight 106.8 kg Body Mass Index 27.2 Results - Labs CBC & Chem 7: 06/22/17 04:20 06/22/17 04:20 Microbiology Results: Microbiology 06/20/17 10:20 Peripheral/Iv Start Blood Culture - Preliminary No Growth After 2 Days 06/20/17 10:26 Peripheral/Iv Start Blood Culture - Preliminary No Growth After 2 Days Assessment and Plan (1) Wound, open, foot Current visit: Yes Status: Acute Assessment and Plan: IMPRESSION Severe sepsis secondary to diabetic foot wound Non-pressure chronic ulcer of right heel and midfoot with necrosis of muscle - S /P BKA 06/21/17 Diabetes mellitus type 2, uncontrolled (~1986) (A1c was 11.2% on 06/20/17) Diabetic peripheral neuropathy and nephropathy associated with type 2 diabetes mellitus PVD ED Depression Insomnia GERD Tobaccoism Have independently interviewed and examined pt. Chart reviewed. Case discussed with CM & my [employer]. Care plan developed with my supervision; agree with above. Notes pain to right stump. Hurts with pressure-trying to keep stump elevated. Blood sugars low this afternoon-mid 50's. Taking snacks to help. Breathing well. No f/c. Not sleeping at night-worries it's from all the stressors he is under. Lungs: clear bilaterally CV: regular AB: soft nt/nd MSE: awake alert appropriate Plan: Will continue with Vancomycin-wound culture from wound center growing out Staph. Can stop Gentamicin now that patient has had amputation and sepsis resolved. PT/OT to help functional status. Can d/c IVF. Monitor lab. Resuscitation Status: Full Code - Time spent with patient Time with patient PN: 25 minutes Hospital Course Summary Disclaimer: The visit summary below is not to be considered part of the above Progress Note.
--- NOTE | 2017-06-22 11:21 | Operative Note ---
DATE 06/21/2017 PREOPERATIVE DIAGNOSIS Right foot diabetic foot ulcer. POSTOPERATIVE DIAGNOSIS Right foot diabetic foot ulcer. PROCEDURE Right [id number] amputation. SURGEON Abdirashid James MD HR ASSOCIATE Jc Carrion PA-C COMPLICATIONS None. ANESTHESIA General endotracheal tube anesthetic. EBL AND FLUIDS Please see Anesthetic Record. TOURNIQUET None used. DESCRIPTION OF PROCEDURE Mr. Bazzi and his right leg were identified and marked in the preoperative holding area. He was brought back to the operating suite and placed supine on the operating table. He was placed under general anesthesia. The right lower extremity was prepped and draped in my normal sterile fashion. A stockinette was placed over the foot. Before surgery, I measured down on this left thigh which also had a [id number] amputation. From the patella down to the end of the tibial resection was 15 cm. He wanted a similar length on the right side and so we did zoë this on the right side, again 15 cm down from the patella. I then made my anterior flap 3 cm beyond this and then the posterior flap approximately 10-12 cm beyond this. We started with a skin incision anteriorly and then cautery was used to the subcutaneous tissue down to the tibia. Soft tissue was removed from the tibia anteriorly back to our bone resection. The osteotomy was made with a saw. The anterior tibia was then beveled and all sharp edges were smoothed with the saw. A similar osteotomy was made 1 cm proximal on the fibula. He had minimal bleeding so far during the case. The soft tissue was then dissected off the posterior tibia and fibula until the leg could be removed. Again, there was no significant bleeding from any of the posterior tibial vessels. There was some bleeding at the skin edges. Only one vessel had to be tied laterally. I did, for precaution, tie off the main posterior tibial vessels although they had minimal bleeding. I then proceeded to irrigate the entire wound. I had to debulk the posterior musculature and then the fascia was closed from anterior to posterior using #1 Vicryl. We then used 3-0 nylon in the skin in a simple interrupted fashion. Skin edges came back together nicely. A sterile dressing was then placed. He was allowed to awaken from general anesthesia and taken to the Recovery Room under the care of Anesthesia. The tolerated the procedure well and there were no complications. SHAMIKA
[2017-06-22] MEDS: ENOXAPARIN 40 MG/0.4 ML INJECTION SQ SCH (12:52)
--- NOTE | 2017-06-22 16:30 | Pharmacy Consult-Antibiotics ---
Pharmacy Consult-Gentamicin - Laboratory Information Gentamicin Gentamicin Trough 2.1 UG/ML (0-2) H 06/22/17 14:34 WBC 9.8 T/MM3 (4.5-11.0) 06/22/17 04:20 BUN 19.0 MG/DL (9-20) 06/22/17 04:20 Creatinine 1.1 MG/DL (0.8-1.5) 06/22/17 04:20 Procalcitonin 1.85 NG/ML 06/21/17 04:07 - Consult Information Gentamicin trough elevated, held 1500 dose. Changed gentamicin dose to 140mg IV q18h to start at 2100 today. Thank you.
[2017-06-22] MEDS ORDERED: NS IV SCH (21:00)
[2017-06-22] MEDS ORDERED: GENTAMICIN IV SCH (21:00)
[2017-06-22] MEDS ORDERED: MELATONIN 1 MG TABLET PO SCH (21:00)
[2017-06-22] MEDS: INSULIN DETEMIR 100unit/ml INJECTION SQ SCH (21:25)
[2017-06-23] MEDS ORDERED: NS FLUSH BAG 500ml IV PRN (00:06)
[2017-06-23] MEDS: HYDROCODONE/APAP 7.5 MG/325 MG TABLET PO PRN (02:01)
[2017-06-23 03:24] VITALS: RESP 16
[2017-06-23] MEDS: NOZIN NASAL SWAB NAS SCH (05:47)
[2017-06-23 07:52] VITALS: BP 148/75; PULSE 81; TEMP 97.8; O2SAT 99
--- NOTE | 2017-06-23 07:59 | Orthopedic Progress Note ---
Date: Subjective/Severity of Illness: Mr. Bazzi states he is doing okay other than surgical pain in the stump. He has had better luck with pain control in the past with use of Percocet. I agreed to switch his pain medication from [place] to Oxycodone. He will continue to have Tylenol available as well. Orthopedic Objective PO Vital signs: Temperature 97.8 F 06/23/17 07:51 Pulse Rate 81 06/23/17 07:51 Respiratory Rate 16 06/23/17 07:51 Blood Pressure 148/75 H 06/23/17 07:51 Pulse Oximetry 99 06/23/17 07:51 Height and Weight: Height 6 ft 5 in Weight 233 lb 11.04 oz Body Mass Index 27.2 - Constitutional General Appearance: Present: alert, no acute distress, well developed, well nourished - Respiratory Exam Present: non-labored - Extremities Exam Comments: stump dressing intact - Surgical Site Incision: dressing intact, no drainage - Lymphatic Lymphatic: Absent: adenopathy - Psychiatric Exam Present: alert, normal affect - Labs Result Diagrams: 06/23/17 03:55 06/23/17 03:55 Abnormal lab results 06/22/17 06/23/17 06/23/17 Range/Units 14:34 03:55 03:55 RBC 3.60 L (4.50-5.90) M/MM3 Hgb 10.3 L (13.5-17.5) GM/DL Hct 32.1 L (41-53) % Neut % (Auto) 71.4 H (33-66) % Lymph % (Auto) 17.1 L (23-45) % [place] % (Auto) 9.1 H (0-9.0) % Abs Immat Gran (auto) 0.04 H (0.00-0.03) T/MM3 Glucose 244 H (75-110) MG/DL Calcium 8.0 L (8.4-10.2) MG/DL Alkaline Phosphatase 192 H (38-126) U/L Albumin 2.9 L (3.5-5.0) G/DL Globulin 3.7 H (2.4-3.6) G/DL Albumin/Globulin Ratio 0.8 L (1.1-2.2) RATIO Gentamicin Trough 2.1 H (0-2) UG/ML H & H 06/21/17 06/22/17 06/23/17 Range/Units 04:07 04:20 03:55 Hgb 11.0 L D 10.1 L 10.3 L (13.5-17.5) GM/DL Hct 33.7 L D 31.2 L 32.1 L (41-53) % Coagulation 06/20/17 Range/Units 10:23 INR 1.09 (0.99-1.21) Orthopedic Assessment and Plan (1) Wound, open, foot Status: Acute (2) Diabetic foot ulcer Status: Resolved Qualifiers: Diabetic foot ulcer location: midfoot Diabetes mellitus type: type 2 Laterality: right Non-pressure ulcer stage: with necrosis of muscle Qualified Code(s): E11.621 - Type 2 diabetes mellitus with foot ulcer; L97.413 - Non-pressure chronic ulcer of right heel and midfoot with necrosis of muscle; L97.413 - Non-pressure chronic ulcer of right heel and midfoot with necrosis of muscle; L97.413 - Non-pressure chronic ulcer of right heel and midfoot with necrosis of muscle; L97.413 - Non-pressure chronic ulcer of right heel and midfoot with necrosis of muscle Assessment and Plan: [facility]. Mobilize with PT / OT. He can wear his artificial leg on the left side to assist with txfrs. Medical care per hospitalist service and Dr Velazquez. Anticoagulation per hospitalist recommendations. Pain medications will be switched to Oxycodone and Tylenol. Hospital Course Summary Disclaimer: The visit summary below is not to be considered part of the above Progress Note. Hospital Course: 06/20/17 IMPRESSION Severe sepsis secondary to diabetic foot wound Diabetes mellitus type 2, uncontrolled (~1986) (A1c was 11.2% on 06/20/17) Diabetic peripheral neuropathy and nephropathy associated with type 2 diabetes mellitus PVD ED Depression Insomnia GERD Tobaccoism PLAN Admit, inpatient status, with consults to Dr. James and Dr. Velazquez. NPO status. CXR and EKG in anticipation of surgery. Sepsis w/u, including labs and cultures. Vanco and gentamicin started after cultures drawn. Severe sepsis criteria include leukocytosis (WBC 16.7), tachycardia (HR 101), and organ dysfunction variable of hyperlactatemia (2.1). Source: right foot wound. Repeat lactate within 6 hours. Give fluid bolus of 500 mL (not hypotensive on admission). Nicotine patch; consult respiratory for tobacco cessation counseling. Hold home meds until surgical plans are finalized. Advanced directives: Marco wishes to name as SYLVESTER, and she's in agreement. Case Management will help them get the appropriate forms filled out and notarized this afternoon. Code status: Full code. 06/20/17 13:05 Plan-05/21/17: Marco is scheduled for BTK amputation to his right lower leg today by Dr. James. He appears down, which is to be expected and expresses anxiety about what the future holds, particularly regarding finances. Encourage working with case management and making his home needs known, including wheelchair. Review of labs revealed persistent uncontrolled, hyperglycemia. Patient has been seen and evaluated by Dr. Velazquez who increased all of his insulins - NovoLog was increased to 21 units from 18 units TID and Levemir was increased to 46 units from 42 units. Continue to monitor trends and monitor closely. Appreciate Dr. Velazquez's time and expertise. Leukocytosis improving. Lactate and procalcitonin trending down. Low grade temperature noted at 99.4. Continue to monitor closely. Will recheck CBC and BMP in AM to monitor blood counts, electrolytes and renal function. TSH at 0.32 with T3 and T4 pending. Dr. Velazquez managing. Continue antimicrobial treatment with gentamicin, Levaquin and vancomycin. Blood cultures pending. Patient denies signs/symptoms of ototoxicity. Continue to monitor closely. Recommend monitoring patient's mood closely given the situation as he is at high risk for severe depression. May consider psychiatric consult and/or initiation of antidepressant. Will discuss with Dr. Chahal. Care to return to Dr Mo at time of discharge from [facility]. Plan 06/21 White count 16.7-13.0, lactic acid trending down. EKG with low-grade sinus tachycardia but no acute ST/T-wave changes by my review. Blood sugar prior to leaving to the OR 85. For debridement/amputation. Outpatient wound culture with gram-positive cocci in pairs, staph aureus on culture; anticipate surgical cultures to be obtained today. Do not anticipate continuing gentamicin based on preliminary culture results although may require anaerobic coverage. Multiple discussions with nursing through the day. Plan 06/22 Telemetry reviewed-NSR- Will discontinue telemetry Leukocytosis improved, white count 9.8. Intended to monitor Accu-Cheks. NovoLog 23 units with meals and Levemir 46 units at at bedtime Will add melatonin for at bedtime to help with sleep. This is patient's largest complaint today. Consultation placed for PT/OT evaluation today. He may be a good candidate for IRU given prior prosthetic with new amputation. Case discussed with attending, nursing and IRU director.
[2017-06-23] MEDS: Oxycodone *IR* 5 MG TABLET PO PRN ×2 (08:07→09:46)
[2017-06-23] MEDS: ENOXAPARIN 40 MG/0.4 ML INJECTION SQ SCH (08:08)
[2017-06-23] MEDS: INSULIN ASPART 100unit/ml INJECTION SQ SCH (08:08)
[2017-06-23] MEDS: NICOTINE 21 MG PATCH TD SCH (08:09)
[2017-06-23] MEDS: NICOTINE PATCH REMOVAL TD SCH (08:10)
--- NOTE | 2017-06-23 08:19 | Endocrinology Progress Note ---
Subjective Principal diagnosis: Diabetes mellitus type 2 Interval history: Mr. Bazzi states he is doing okay other than surgical pain in the stump. He was able to get a little sleep last night. Had some hypoglycemia yesterday after lunch, so meal bolus insulin doses were reduced. Did fine after supper. Exam Vital signs: Temperature 97.8 F 06/23/17 07:51 Pulse Rate 81 06/23/17 07:51 Respiratory Rate 16 06/23/17 07:51 Blood Pressure 148/75 H 06/23/17 07:51 Pulse Oximetry 99 06/23/17 07:51 - Constitutional no acute distress, well developed, thin - Routine HEENT Exam Head: Present: normocephalic, atraumatic Eye: Present: EOMI ENT: Present: mucous membranes moist - Routine Neck Exam Absent: thyromegaly - Routine Respiratory Exam Absent: dyspnea - Routine Cardiovascular Exam Present: RRR - Routine Abdominal Exam Present: soft, normoactive bowel sounds - Routine Extremities Exam Comments: Bilateral BKA. - Routine Skin Exam Present: dry, warm - Routine Neurological Exam Present: alert, oriented X3 - Routine Psychiatric Exam Present: normal affect, normal thought process, good insight, good judgment - Additional findings Additional findings: Laboratory Tests 06/22/17 06/22/17 06/22/17 10:06 15:19 15:37 Glucometer 165 54 55 06/22/17 06/22/17 06/22/17 16:05 16:34 17:04 Glucometer 54 72 96 06/22/17 06/23/17 19:49 05:55 Glucometer 204 183 Assessment and Plan (1) Type 2 diabetes mellitus, uncontrolled Current visit: Yes Status: Chronic Fair control of diabetes. Observe today on new insulin doses. (2) Abnormal TSH Current visit: Yes Status: Acute Probable euthyroid sick syndrome. No intervention required. (3) Diabetic foot ulcer Current visit: Yes Status: Resolved (4) jail current use of insulin Current visit: No Status: Chronic
--- NOTE | 2017-06-23 10:23 | Discharge Summary ---
<Loyda Day V - Last Filed: 06/23/17 10:20> Discharge Information Date of admission: 06/20/17 09:59 Anticipated date of discharge: 06/23/17 Attending Physician: Neha Chahal MD Primary care physician: Andrea Mo II, MD Consults: 1. Dr. James-orthopedics 2. 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 James - Laboratory Labs: 06/23/17 03:55 06/23/17 03:55 - Microbiology Microbiology 06/20/17 10:20 Peripheral/Iv Start Blood Culture - Preliminary No Growth After 2 Days 06/20/17 10:26 Peripheral/Iv Start Blood Culture - Preliminary No Growth After 2 Days - Radiology Radiology: 06/20/17 Chest Xray- no acute cardiopulmonary findings - Pathology RLE Pathology pending History of Present Illness HPI: Mr. Bazzi is a 61 y/o male with a hx of uncontrolled insulin dependent type 2 DM. His A1c has been climbing - 9.6% in January, 10.2% in May, and now 11.2%. He has a left [id number] amputation and has a prosthetic; typically uses a cane to ambulate. He denies any known injury to the bottom of his foot but did injure his right de jesus on the rungs of a ladder a few weeks ago. Marco thinks that the wounds on his right foot were from putting too much pressure on his foot when he stands and ambulates. His has been providing wound care at home for redness and two small black-colored wounds to the sole of his right foot for the last month. She had been changing the dressings every other day, last done on 06/18/17. He presented for evaluation at the wound clinic on when Dr. Cedeno found that the plantar surface of his foot had opened and subcutaneous tissue was exposed (on a pic on his 's phone it was difficult to see if there was exposed tendon/bone). Labs were drawn and arrangements were made for direct admission. Marco has had subjective fever with chills and sweating at home over the last 2-3 days. He hasn't felt like eating and had an episode of vomiting on 06/18/17. He denies weakness/dizziness. Dr. Velazquez's office note indicated a recent 7-lb weight loss but he can't confirm - his interjected that he always eats bad over the summer and spends a lot of time outdoors and tends to lose some weight. He denies any SOA, chest pain, palpitations, or syncope. No cough/congestion, sore throat, or dysphagia. No abdominal pain, diarrhea, or constipation. Denies dysuria. He had urinary retention requiring cath in March, - this resolved after his prostate was removed. He hasn't had much pain despite his wound. Objective Vital signs: Temperature 97.8 F 06/23/17 07:51 Pulse Rate 81 06/23/17 07:51 Respiratory Rate 16 06/23/17 07:51 Blood Pressure 148/75 H 06/23/17 07:51 Pulse Oximetry 99 06/23/17 07:51 Height/Weight/BMI: Height 1.96 m Weight 106 kg Body Mass Index 27.2 - Constitutional Present: no acute distress, well nourished, well developed - Routine HEENT Exam Eye: Present: EOMI ENT: Present: mucous membranes moist, dentition normal - Routine Respiratory Exam Present: CTA bilaterally. Absent: wheezes - Routine Cardiovascular Exam Present: RRR, S1, S2. Absent: murmur - Routine Abdominal Exam Present: soft, normoactive bowel sounds, non distended. Absent: tenderness - Routine Extremities Exam Comments: LLE- Chronic BKA RLE- New BKA- Dressing intact. - Routine Back/Spine/Pelvis Exam Back/Spine: Present: full ROM - Routine Skin Exam Present: intact, dry, warm - Routine Neurological Exam Present: alert, oriented X3, CN II-XII intact, moving all extremities - Routine Lymphatic Exam Lymphatic: Absent: adenopathy - Routine Psychiatric Exam Present: normal affect, cooperative Hospital Course This is a general summary of the patient's hospital course. For more details refer to the complete medical record. Hospital course: 06/20/17- admission IMPRESSION Severe sepsis secondary to diabetic foot wound Diabetes mellitus type 2, uncontrolled (~1986) (A1c was 11.2% on 06/20/17) Diabetic peripheral neuropathy and nephropathy associated with type 2 diabetes mellitus PVD ED Depression Insomnia GERD Tobaccoism PLAN- 06/20 Admit, inpatient status, with consults to Dr. James and Dr. Velazquez. NPO status. CXR and EKG in anticipation of surgery. Sepsis w/u, including labs and cultures. Vanco and gentamicin started after cultures drawn. Severe sepsis criteria include leukocytosis (WBC 16.7), tachycardia (HR 101), and organ dysfunction variable of hyperlactatemia (2.1). Source: right foot wound. Repeat lactate within 6 hours. Give fluid bolus of 500 mL (not hypotensive on admission). Nicotine patch; consult respiratory for tobacco cessation counseling. Hold home meds until surgical plans are finalized. Advanced directives: Marco wishes to name as DPOA, and she's in agreement. Case Management will help them get the appropriate forms filled out and notarized this afternoon. Code status: Full code. 06/20/17 13:05 Plan-06/21/17: Marco is scheduled for BTK amputation to his right lower leg today by Dr. James. He appears down, which is to be expected and expresses anxiety about what the future holds, particularly regarding finances. Encourage working with case management and making his home needs known, including wheelchair. Review of labs revealed persistent uncontrolled, hyperglycemia. Patient has been seen and evaluated by Dr. Velazquez who increased all of his insulins - NovoLog was increased to 21 units from 18 units TID and Levemir was increased to 46 units from 42 units. Continue to monitor trends and monitor closely. Appreciate Dr. Velazquez's time and expertise. Leukocytosis improving. Lactate and procalcitonin trending down. Low grade temperature noted at 99.4. Continue to monitor closely. Will recheck CBC and BMP in AM to monitor blood counts, electrolytes and renal function. TSH at 0.32 with T3 and T4 pending. Dr. Velazquez managing. Continue antimicrobial treatment with gentamicin, Levaquin and vancomycin. Blood cultures pending. Patient denies signs/symptoms of ototoxicity. Continue to monitor closely. Recommend monitoring patient's mood closely given the situation as he is at high risk for severe depression. May consider psychiatric consult and/or initiation of antidepressant. Will discuss with Dr. Chahal. Care to return to Dr Mo at time of discharge from [facility]. Plan 06/21- Fela White count 16.7-13.0, lactic acid trending down. EKG with low-grade sinus tachycardia but no acute ST/T-wave changes by my review. Blood sugar prior to leaving to the OR 85. For debridement/amputation. Outpatient wound culture with gram-positive cocci in pairs, staph aureus on culture; anticipate surgical cultures to be obtained today. Do not anticipate continuing gentamicin based on preliminary culture results although may require anaerobic coverage. Multiple discussions with nursing through the day. Plan 06/22 Telemetry reviewed-NSR- Will discontinue telemetry Leukocytosis improved, white count 9.8. Intended to monitor Accu-Cheks. NovoLog 23 units with meals and Levemir 46 units at at bedtime Will add melatonin for at bedtime to help with sleep. This is patient's largest complaint today. Consultation placed for PT/OT evaluation today. He may be a good candidate for IRU given prior prosthetic with new amputation. Case discussed with attending, nursing and IRU director. 06/23/17- Discharge Mr. Bazzi is seen and examined today. Overall he is feeling good although is tired. Reports that he is used to taking 15 milligrams of melatonin and 75 milligrams of Benadryl in addition to ibuprofen to help with chronic insomnia. Requesting additional medications to help with sleep, we will add Ambien for this evening. Marco did not feel that [place] was effectively treating his right stump pain. Pain medication was changed to oxycodone 5 milligram's every 4 hours as needed. Continue with Lovenox subcutaneous daily for DVT prophylaxis. We'll continue on vancomycin until surgical pathology has been resulted. [employer] is coming today for stump evaluation. He is medically stable and accepted to IRU for ongoing therapy and strengthening. Time spent with patient: discharge greater than 30 minutes DVT Prophylaxis: Lovenox Discharge Plan - Discharge Disposition Discharge Date: 06/23/17 Disposition: 62 To [facility] INPT Rehab *Condition: Stable Reason For Visit (Visit label in EMR): Rt diabetic ft wound, RLE amputation - Discharge Medications *Discharge Medications: New Zolpidem [Ambien] 5 mg PO HS #10 tablet Acetaminophen [Tylenol] 650 mg PO Q5H PRN tablet PRN Reason: Discomfort Bisacodyl Supp [Dulcolax] 10 mg RECTALLY DAILY PRN supp PRN Reason: Constipation Insulin Aspart [NovoLOG] 19 unit SQ TIDWM vial Insulin Detemir [Levemir] 46 unit SQ HS vial Nicotine Patch [Nicoderm] 21 mg TD DAILY patch Nicotine Patch Removal 1 removal TD DAILY patch PEG 3350 17gm PACKET [Miralax] 17 gm PO DAILY PRN packet PRN Reason: Constipation Enoxaparin Sodium [Lovenox] 40 mg SQ DAILY syringe Milk of Magnesia [Mom] 30 ml PO DAILY PRN udc PRN Reason: Constipation Oxycodone *IR* [Roxicodone *Ir*] 5 mg PO Q4H PRN tablet PRN Reason: Pain Vancomycin [Vancocin] 1,750 mg IV Q12H vial Mirtazapine 7.5 mg PO HS #30 tablet Continue Omeprazole 20 mg PO ACB Pravastatin [Pravachol] 20 mg PO HS Clopidogrel Bisulfate [Plavix] 75 mg PO DAILY #0 Lisinopril 2.5 mg PO HS #0 Discontinued Insulin Glargine [Lantus] 42 unit SQ HS Insulin Lispro [Humalog] 18 unit SQ TIDWM - Discharge Packet/Instructions *Diet: 2000 calorie carb consistent diet *Activity: As per PT *Pain Management/Treatment: Oxycodone *Wound Care: As per Orthopedic team- [employer] coming today for stump care *Expected Signs/Symptoms: Improvement in strength *Notify Physician if: N/A *During Business Hours Contact: N/A *After Business Hours Contact: N/A *Pending Lab/Results: No Pending Lab - IRU/GEN Discharge/Transfer - Referrals/Follow Up *Referrals/Follow Up: Abdirashid James MD [Physician] - - Patient Handouts - Dismissal Complete Discharge Instructions are:: Complete <Neha Chahal - Last Filed: 06/23/17 11:11> Discharge Information Primary care physician: - Discharge Diagnosis (1) Wound, open, foot Status: Acute (2) Diabetic foot ulcer Status: Resolved - Laboratory Labs: Objective Vital signs: Temperature 97.8 F 06/23/17 07:51 Pulse Rate 81 06/23/17 07:51 Respiratory Rate 16 06/23/17 07:51 Blood Pressure 148/75 H 06/23/17 07:51 Pulse Oximetry 99 06/23/17 07:51 Height/Weight/BMI: Height 1.96 m Weight 106 kg Body Mass Index 27.2 Hospital Course This is a general summary of the patient's hospital course. For more details refer to the complete medical record. Hospital course: I have independently evaluated and examined this patient. I reviewed the chart, the patient's history, and the [employer]/PA's documented findings as above. We discussed and formulated the assessment and plan as above with additions as below: Cedric was seen prior to transfer to IRU. His primary concern was poor sleep quality which he attributed to stress regarding his 's illness over the past year, pain control, and interruptions during the night for various nursing needs. His appetite is variable. He has found position lying on his left side which is more comfortable and permits better sleep but intermittent muscle spasms still interrupt sleep and increased pain. Blood pressures have been borderline high and will require continued monitoring. Patient is alert and affect is somewhat flat. Respirations nonlabored, airflow good with clear breath sounds. Right BKA stump is dressed and there is no drainage or blood soaking through the dressing. Pathology pending; hemoglobin/creatinine stable. Initiate low-dose mirtazapine for underlying depressive symptoms in conjunction with sleep disturbance; Ambien short-term. Stable for transfer to IRU. Discharge Plan - IRU/GEN Discharge/Transfer
== END 2017-06-23 11:40 | DRG 854 ==
LOC: SRG 09:59 → SUATTDRO 09:59
PROVIDERS: ADMIT Hospitalist; ATTEND Internal Medicine

== ENCOUNTER 2017-06-23 11:50 | Inpatient (IN) ==
[2017-06-23] MEDS ORDERED: ACETAMINOPHEN 325 MG TABLET PO PRN (11:58)
[2017-06-23] MEDS ORDERED: ALBUTEROL/IPRATROPIUM 2.5mg-0.5mg/3ml NEB IPPB PRN (11:58)
[2017-06-23] MEDS ORDERED: POLYETHYL GLYCOL 3350 17gm PACKET PO PRN (11:58)
[2017-06-23] MEDS ORDERED: BISACODYL 10 MG SUPPOSITORY RECTALLY PRN (11:58)
[2017-06-23] MEDS ORDERED: INSULIN ASPART 100unit/ml INJECTION SQ SCH (12:00)
[2017-06-23] MEDS: INSULIN ASPART 100unit/ml INJECTION SQ SCH ×2 (13:55→18:05)
--- NOTE | 2017-06-23 14:43 | IRU History & Physical Report ---
HPI [facility] Date: Chief complaint: I'm weak and had a bad infection HPI: Mr. Bazzi is a pleasant 61-year-old man referred by Dr. James Taylor. His primary care physician is Dr. Lavon Mo here in [place]. The patient lives in [facility] with his . He has a history of diabetes mellitus type [address] is followed [address] Dr[address] Velazquez. His A1c values have been progressively climbing with a value of 9.6% in January, 10.2% in May and currently 11.2%. The patient has a previous left below the knee amputation. History is obtained predominantly from the patient and secondarily from the chart. He states that 3 weeks ago he was climbing a ladder. He had a small injury on the right anterior de jesus. That ultimately healed up but as a result of that he started looking at his right foot. He noted a lesion develop on the right foot which initially was fairly small. He contacted the wound clinic for an appointment but their first appointment was on June 20. In the meantime, his treated the right foot wound with a silver preparation and cleansing, changing the dressing every 3 days. He subsequently developed nausea and vomiting along with some chills and sweats on approximately 06/18/2017. He was seen in the wound clinic on June 20 and because of the severe wound was directly admitted to the hospital. He was felt to have sepsis based on elevated lactate, leukocytosis and low-grade fever. Cultures of the blood were obtained and were negative. Consultation was placed to Dr. James and the patient underwent a right below the knee amputation on 06/21/2017. He remains on vancomycin at the present time. Blood cultures were negative 2 during this hospitalization. Unfortunately the patient had had a previous left below the knee amputation. He was using a prosthesis with that. However as a result of the current amputation he now needs to regain strength on the left side. He states that his right leg had done most of the work due to the previous left below the knee amputation. He also has severe pain in the right lower extremity at the present time and has found that hydrocodone is ineffective for him. He has been switched to oxycodone. At home prior to admission he was modified independent functioning for eating, toileting, bed/chair/wheelchair transfers, toilet transfers and walking. He was modified independent for wheelchair. He walked with a single-point cane. He was modified independent for stairs. At the present time the patient's level of functioning is as follows: Eating: Modified independent. Grooming: Supervision. Upper body dressing requires minimum assistance. Lower body dressing requires total assistance. Toileting is not tested. Screen for bed/chair/wheelchair transfers is total assistance. He is unable to walk at the present time. From a diabetic standpoint, he reports that his sugars have been increasingly uncontrolled. His has been in and out of the hospital over the past several months with multiple surgeries. This has caused a disruption in his lifestyle and variability in his oral intake. He does try to check his sugars twice daily but they are frequently elevated in the "error" range. His A1c has increased over the past several months from around 9% up to 10% and now 11.2%. He sees Dr. Velazquez about every 3 months. The following medical conditions are noted and require active monitoring and/or management: 1. Bilateral below the knee amputations with the most recent one being on the right side. He reports significant weakness in the left lower extremity as a result of having that site previously amputated. He is at risk for falls and will need to have extensive therapy to be able to manage at home. In addition, with the new below the knee amputation on the right he is at risk for wound infection and dehiscence. He reports a history of poor wound healing in view of his diabetes. 2. Recent wound infection continuing to require intravenous antibiotics 3. Diabetes mellitus type 2 on insulin, not controlled. His blood sugars on the acute side are quite variable being in the 50s at times and much higher at other times. As a result of his variable activity level and intake (he reports anorexia) he is at risk for hypoglycemia as well as uncontrolled hyperglycemia. 3. Atherosclerotic peripheral vascular arterial disease. 4. Chronic tobacco use. He reports that he has tried to stop numerous times. He declines a nicotine patch due to rash. He is at risk for further anxiety and depression during the time of his withdrawal from tobacco. 5. Diabetic peripheral neuropathy: He reports neuropathy also in his hands and fingers resulting in reduced sensation and increased risk for falls and decreased ability to perform his activities of daily living. 6. He complains of significant insomnia. At home he takes melatonin and ibuprofen with Benadryl. He has had difficulty sleeping in the hospital. He is at risk for further insomnia and difficulty with participation in therapy etc. The following therapies will be needed: 1. Physical therapy: for transfers and ambulation and stairs. 2. Occupational therapy: for ADL's and transfers. 3. Dietitian: To ensure adequate nutrition during the healing phase of his below -the-knee amputation and in view of the diabetes mellitus 4. Medical management: for the above conditions. 5. 24 hour Rehabilitation Nursing to monitor and address the following: Close monitoring of blood sugars which are quite variable and will likely continue that way due to variable energy demands and variable oral intake during his recovery phase, monitoring of blood pressures and evidence of any recurrence of infection. [facility] Patient Stated Medical History Peripheral Neuropathy Yes Cataracts Yes Dental Problems Yes: UPPER AND LOWERS Hearing Loss Yes Macular Degeneration Yes: RT EYE Hypertension Yes Chronic Obstructive Pulmonary Yes Disease (COPD) Sleep Apnea No Diabetes Mellitus Type 1 Yes Diabetes Mellitus Type 2 Yes: INSULIN DEPENDENT Gastroesophageal Reflux Yes Disease Ulcer Yes Hx Benign Prostatic Yes Hyperplasia Hx Renal Disease No MRSA Yes Clinic Medical History (Last Reviewed 02/01/17 @ 14:42 by Amilcar Velazquez MD) Wound, open, foot (Acute Medical) Diabetic foot ulcer (Resolved Medical) Type 2 diabetes mellitus, uncontrolled (Chronic Medical) Abnormal TSH (Acute Medical) Diabetes mellitus type 2, controlled (Chronic Medical ~1986) uncertain control, but last A1c was too high (9.6%) 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 Urinary retention (Inactive Medical) Surgical History: Tonsillectomy (~1959). Vasectomy 1997. EGD 2002 - normal. Multiple laryngoscopies. left below-the knee amputation 07/26/[address] Estrada Kelsey. Right big toe amputated and stents placed in right leg in 09/[address] Kelsey. Cystoscopy with prostate removal in 04/[address] Brian Family History: Family History (Last Reviewed 05/23/17 @ 15:12 by Olivia Webb MA) Mother Heart disease Father High blood pressure Patient's father is living at age 89. He lives at [place]. He has hypertension and syncope. Mother is also living at age 89 and lives at home. She is otherwise healthy. He has a brother age 66 and another brother age 64 with prostate problems. - Social History Smoking status: Current every day smoker Packs per day: 2 Packs-years: 80 (started smoking at age 20. Continues to smoke 2 packs daily.) Quit date: 06/20/17 Time spent discussing smoking cessation with patient: 3 to 10 minutes Substance use type: does not use Alcohol intake: former Alcohol intake frequency: holidays/special occasions only Last drink: days (ago) (last intake was at a birthday celebration 6 weeks ago) Housing: house Household members: spouse Current occupational status: disabled (he was disabled in 1997 on the basis of memory loss, diabetes and neuropathy he states.) Does patient use chewing tobacco?: No Current residence: Apartment/Private Home Social history: Patient has been twice. Current has been 2 years. Lives in [place]. He is disabled. Review of Systems - Constitutional Constitutional: Present: anorexia, chills, fatigue, fever(s), lethargy, night sweats, weakness. Absent: headache(s), malaise, weight gain, weight loss Comments: He reports a long history of difficulty with wound healing. - EENMT Eyes: Absent: blurry vision, change in vision, diplopia Ears: Present: other (has markedly diminished hearing bilaterally) Mouth/Throat: Absent: changes in swallowing, painful swallowing, change in taste , bleeding gums, change in voice - Cardiovascular Cardiovascular: Absent: chest pain (denies any history of known coronary disease.), palpitations, syncope, dyspnea on exertion, orthopnea, edema, cyanosis, heart murmur Rhythm: Present: regular rhythm Vascular: Present: other (has a history of known peripheral vascular arterial disease status post left [id number] amputation.). Absent: intermittent claudication, pedal edema, unilateral swelling - Respiratory Respiratory: Present: cough. Absent: dyspnea, hemoptysis, dyspnea on exertion, wheezing, pain on inspiration, chest congestion, excessive phlegm production - Gastrointestinal Gastrointestinal: Present: constipation, dyspepsia, nausea. Absent: abdominal pain, change in bowel habits, diarrhea, dysphagia, early satiety, hematochezia, melena, vomiting - Genitourinary Genitourinary: Present: difficulty urinating (apparently has recent history of retention followed by prostate removal and now with some incontinence.), urinary incontinence - Musculoskeletal Musculoskeletal: Present: abnormal gait. Absent: arthralgias, back pain, joint swelling, limited range of motion, muscle weakness - Integumentary/Breasts Integumentary: Absent: alopecia, erythema, lesions, pruritus, rash, jaundice - Neurological Neurological: Present: abnormal gait. Absent: abnormal movements, abnormal speech, confusion, convulsions, dizziness, focal weakness, frequent falls, headache(s), loss of vision, memory loss, numbness, paresthesias, tremor(s) - Psychiatric Psychiatric: Present: abnormal sleep pattern, depression (has trouble for some time with depression. Remote history of suicide attempt.). Absent: anxiety - Endocrine Endocrine: Absent: cold intolerance, flushing, heat intolerance, palpitations - Hematologic/Lymphatic Hematologic/Lymphatic: Absent: easy bleeding, easy bruising, lymphadenopathy - Allergic/Immunologic Allergic/Immunologic: Absent: urticaria Medications Home Medications Medication Instructions Recorded Confirmed Type Clopidogrel Bisulfate [Plavix] 75 mg PO DAILY #0 10/27/10 06/23/17 History Lisinopril 2.5 mg PO HS #0 04/21/15 06/23/17 History Omeprazole 20 mg PO ACB 03/24/17 06/23/17 History Pravastatin [Pravachol] 20 mg PO HS 03/24/17 06/23/17 History Allergies Allergy/AdvReac Type Severity Reaction Status Date / Time Penicillins Allergy Unknown HIVES Verified 05/23/17 15:11 Results IRU - Labs Labs: I have reviewed data from the acute hospitalization including lab work radiographs etc. Also have reviewed notes and have visited with hospitalist JEROD. Exam Vital Signs: Temperature 97.4 F 06/23/17 11:55 Pulse Rate 89 06/23/17 11:55 Respiratory Rate 20 06/23/17 11:55 Blood Pressure 174/75 H 06/23/17 11:55 Pulse Oximetry 98 06/23/17 11:55 - Constitutional Present: moderate distress (due to right stump pain), well nourished, well developed, obese, cooperative - Routine HEENT Exam Head: Present: normocephalic, atraumatic. Absent: cushingoid faces, abrasion, laceration, hematoma Eye: Present: EOMI, PERRL. Absent: conjunctival icterus, scleral injection, periorbital swelling, nystagmus ENT: Present: mucous membranes moist, oropharynx clear. Absent: dentition normal (he is edentulous.), external ear normal (right pinna has waxy lesion consistent with seborrheic keratosis) - Routine Neck Exam Present: supple, full ROM, trachea midline. Absent: lymphadenopathy, thyromegaly, tenderness, swelling - Routine Chest/Breast/Axilla Exam Chest wall: Absent: tenderness, mass Axillae: Absent: lymphadenopathy, mass - Routine Respiratory Exam Present: decreased breath sounds, CTA bilaterally. Absent: accessory muscle use , prolonged expiratory phase, rales, respiratory distress, rhonchi, stridor, wheezes, crackles, distant breath sounds - Routine Cardiovascular Exam Present: RRR, S1, S2, no murmur. Absent: gallop, S3, S4, click, irregular rhythm - Routine Abdominal Exam Present: soft, normoactive bowel sounds, non distended, non tender. Absent: rebound, guarding, firm, rigid, organomegaly, mass, hernia, wound - Routine Extremities Exam Absent: cyanosis, clubbing, pulses intact (patient is status post bilateral below the knee amputation) - Routine Back/Spine/Pelvis Exam Back/Spine: Present: full ROM. Absent: scoliosis, kyphosis - Routine Skin Exam Present: intact, dry, warm, wounds (right BKA wound. This was not inspected by me as it is fully dressed at present.). Absent: cyanosis, erythema, pallor, mottling, petechiae, urticaria, lesions, jaundice - Routine Neurological Exam Present: alert, oriented X3, CN II-XII intact, sensory deficit, motor deficit, moving all extremities, normal speech - Routine Psychiatric Exam Present: normal affect, normal thought process, cooperative, good insight, good judgment. Absent: depressed, anxious Sepsis Assessment - Evaluation Confirmed Suspected Infection: Yes (right foot wound, now removed) IRU A/P (1) S/P bilateral BKA (below knee amputation) Current visit: Yes Status: Acute Patient had previous left: Amputation and current right below the knee amputation. As result he needs to regain ability to transfer safely and increase strength in the left lower extremity. He is also at risk for wound dehiscence and surgical site infection in view of his poorly controlled diabetes mellitus. (2) Type 2 diabetes mellitus, uncontrolled Qualifiers: Diabetes mellitus complication status: with circulatory complication Diabetes mellitus complication detail: with other circulatory complications Diabetes mellitus skilled nursing insulin use: with skilled nursing use Qualified Code(s) : E11.59 - Type 2 diabetes mellitus with other circulatory complications; E11.65 - Type 2 diabetes mellitus with hyperglycemia; E11.65 - Type 2 diabetes mellitus with hyperglycemia; E11.65 - Type 2 diabetes mellitus with hyperglycemia; E11.65 - Type 2 diabetes mellitus with hyperglycemia; Z79.4 - nursing home (current) use of insulin; Z79.4 - nursing home (current) use of insulin; Z79.4 - nursing home (current) use of insulin; 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 In the acute care hospital his sugars were quite variable as well. He is at risk for hypoglycemia as well as continued hyperglycemia. Dr. Velazquez is following as well. (3) Diabetic peripheral neuropathy associated with type 2 diabetes mellitus Problem details: Slightly improved Current visit: No Status: Chronic He has evidence of peripheral neuropathy not only in his lower extremities which have now been amputated but also in his upper extremities. This resulted in impairment of his ability to perform activities of daily living and potentially impair his ability to transfer safely. (4) Insomnia Qualifiers: Insomnia type: primary Qualified Code(s): F51.01 - Primary insomnia Current visit: Yes Status: Acute (5) Tobacco dependence Current visit: Yes Status: Chronic We discussed his tobacco dependence. He would like to stop smoking. He has tried on numerous occasions. He declines the nicotine patch due to a rash. He states he would like to "go cold turkey." DVT Prophylaxis: Lovenox - Course Hospital Course: Cedric Diego MD: - Interventions to Obtain Goals PT Treatment Plan: Balance/Proprioception, Functional Activities, Patient/ Family Education OT Treatment Plan: ADL (Basic Care), Balance Training, Pt./Family Education Goals Progress/Modifications: An intensive individualized program of occupational therapy, physical therapy, 24 hour rehabilitation nursing for monitoring blood sugars along with medical oversight will be undertaken. He is able to tolerate 3 hours of therapy daily and requires this intensive level of therapy to return him to his home and prevent falls and readmissions.
[2017-06-23] MEDS: Oxycodone *IR* 5 MG TABLET PO PRN ×4 (14:58→22:03)
--- NOTE | 2017-06-23 15:33 | IRU 24Hr Post Admit Eval ---
24 Hr Post Admission Physical - Relevant Changes Relevant Changes: No Reviewed: I have reviewed the patient's information and concur with the finding and results of the pre-admission screen. Certification: I certify the patient for rehabilitation. - Patient Condition (1) S/P bilateral BKA (below knee amputation) Status: Acute Code(s): Z89.512 - Acquired absence of left leg below knee; Z89.511 - Acquired absence of right leg below knee Classification: Present on IRF Admission, IRF Tx That Should Address Diagnosis, Diagnosis Requiring Medical Follow Up (2) Type 2 diabetes mellitus, uncontrolled Status: Chronic Qualifiers: Diabetes mellitus complication status: with circulatory complication Diabetes mellitus complication detail: with other circulatory complications Diabetes mellitus shelter insulin use: with shelter use Qualified Code(s) : E11.59 - Type 2 diabetes mellitus with other circulatory complications; E11.65 - Type 2 diabetes mellitus with hyperglycemia; E11.65 - Type 2 diabetes mellitus with hyperglycemia; E11.65 - Type 2 diabetes mellitus with hyperglycemia; E11.65 - Type 2 diabetes mellitus with hyperglycemia; Z79.4 - jail (current) use of insulin; Z79.4 - jail (current) use of insulin; Z79.4 - jail (current) use of insulin; Z79.4 - jail (current) use of insulin Code(s): E11.65 - Type 2 diabetes mellitus with hyperglycemia Classification: Present on IRF Admission, IRF Tx That Should Address Diagnosis, Diagnosis Requiring Medical Follow Up (3) Diabetic peripheral neuropathy associated with type 2 diabetes mellitus Status: Chronic Code(s): E11.42 - Type 2 diabetes mellitus with diabetic polyneuropathy Classification: Present on IRF Admission, Diagnosis Requiring Medical Follow Up (4) Insomnia Status: Acute Qualifiers: Insomnia type: primary Qualified Code(s): F51.01 - Primary insomnia Code(s): G47.00 - Insomnia, unspecified Classification: Present on IRF Admission, IRF Tx That Should Address Diagnosis, Diagnosis Requiring Medical Follow Up (5) Tobacco dependence Status: Chronic Code(s): F17.200 - Nicotine dependence, unspecified, uncomplicated Classification: Present on IRF Admission, IRF Tx That Should Address Diagnosis, Diagnosis Requiring Medical Follow Up - Prior Functional Status Lives With: Spouse Residence Type: Apartment/Private Home Assitive Devices: Straight Cane Prior Functional Status: Indep. at home or school, Used assistive device - Current Functional Status Current Level of Function: At the present time the patient's level of functioning is as follows: Eating: Modified independent. Grooming: Supervision. Upper body dressing requires minimum assistance. Lower body dressing requires total assistance. Toileting is not tested. Screen for bed/chair/wheelchair transfers is total assistance. He is unable to walk at the present time. Failed Alternative Therapy: Arrived from Acute Care Patient Requirements: The patient requires oversight by rehabilitation physician to manage their rehabilitation treatment plan and multidisciplinary approach to care that can only be provided in an IRF and requires a multidisciplinary approach to care, provided by professional PTs, OTs, STs, dieticians, RTs, rehabilitation nurses and is not available in lesser levels of care. Limitations Req: Mobility Impairment, ADL Impairment, Limited Mobility Physical Therapy Minutes: 90 Occupational Therapy Minutes: 90 Therapy: The patient is to receive therapy at least 5 days a week. - Complications/Comorbidities Impact on Functional Outcomes: His bilateral [id number] amputations will impact his functional outcome. Pain in the right lower extremity be an impediment to his progress as well. Barriers to Discharge: Weakness, Endurance, Pain Control, Medical Limitation - Plan to Avoid Complications Plan to Avoid Complications: The patient cannot receive this care in a lesser intensive setting such as Group Home or Outpatient Therapy due to the patient requiring the following : He requires a coordinated approach to improve his functional outcome of transfers and ADLs. He requires 24 rehabilitation nursing monitoring of his blood sugars and inspection of the wound to ensure no evidence of wound infection or dehiscence. He is at risk for hyperglycemia or hypoglycemia as well as ongoing infection. .
[2017-06-23] MEDS ORDERED: INFLUENZA VAC QIV 2017-18 (Fluarix*)(>=3yo) 0.5ml IM ONE (16:34)
[2017-06-23] MEDS ORDERED: INSULIN ASPART 100unit/ml INJECTION SQ ONE (20:45)
[2017-06-23] MEDS: INSULIN DETEMIR 100unit/ml INJECTION SQ SCH (21:59)
[2017-06-23] MEDS: ZOLPIDEM 5 MG TABLET PO SCH (21:59)
[2017-06-24] MEDS: Oxycodone *IR* 5 MG TABLET PO PRN ×4 (02:31→22:16)
[2017-06-24] MEDS ORDERED: Oxycodone *IR* 5 MG TABLET PO PRN (07:45)
[2017-06-24] MEDS: INSULIN ASPART 100unit/ml INJECTION SQ SCH ×3 (08:43→18:06)
[2017-06-24] MEDS ORDERED: NICOTINE 21 MG PATCH TD SCH (09:00)
[2017-06-24] MEDS ORDERED: NICOTINE PATCH REMOVAL TD SCH (09:00)
[2017-06-24] MEDS: ENOXAPARIN 40 MG/0.4 ML INJECTION SQ SCH (10:41)
--- NOTE | 2017-06-24 13:08 | Pharmacy Consult-Antibiotics ---
Pharmacy Consult-Vancomycin - Laboratory Information WBC 7.9 T/MM3 (4.5-11.0) 06/24/17 04:42 BUN 14.0 MG/DL (9-20) 06/24/17 04:42 Creatinine 1.1 MG/DL (0.8-1.5) 06/24/17 04:42 Vancomycin Trough 24.62 UG/ML (15-20) H* 06/24/17 11:26 - Consult Information VANCOMYCIN CONSULT: JENA patterson is a 61 yo male who presented to the hospital with severe wound to his right foot . Dr. James was consulted and the patient underwent a right below the knee amputation on 06/21/2017. He remains on vancomycin at the present time. Blood cultures were negative 2 during this hospitalization. Current Renal Function: S Cr = 1.1 mg/dl. Cr Cl ~ 97 mL/min Vancomycin trough = 24.62 I changed the Vancomycin to 1,250 mg IV q12hrs starting @ 1600 today. The estimated trough should between 16-17 mcg/mL. The pharmacy will continue to monitor and adjust regimen to maintain therapeutic levels. Thank you for the Vancomycin Consult, Lázaro Castro, Pharmacist.
--- NOTE | 2017-06-24 13:50 | Consult Note ---
<Loyda Day V - Last Filed: 06/24/17 13:46> Consult Information - Data of Consult Consult date: 06/24/17 Requesting Physician: Cedric Diego MD Primary Care Provider: Andrea Mo II, MD Family Provider: Andrea Mo II, MD - Consult Narrative Reason for consult: Medical managemetn of DM History of present illness: Marco is a 61-year-old male who is well known to the hospitalist services after recently being admitted on 06/20/17 due to sepsis secondary to a right diabetic foot ulcer. He then underwent a right below the knee amputation by Dr. James on 06/21. Postoperatively he has done well and was accepted to inpatient rehabilitation unit under the care of Dr. Diego for ongoing therapy and strengthening. He does have existing comorbidities including a previous left BKA , as well as type II diabetes, depression, insomnia. Morning laboratory studies are reviewed, hemoglobin stable at 10.4, pending. Chemistry panel normal. He has had some hypoglycemia this morning down to 58. It is noted the blood pressures have been somewhat elevated. She was placed back on his home dose of lisinopril at at bedtime. [facility] Patient Stated Medical History Diabetes mellitus type 2, uncontrolled (~1986) (A1c was 11.2% on 06/20/17) Diabetic peripheral neuropathy and nephropathy associated with type 2 diabetes mellitus PVD ED Depression COPD Insomnia GERD Macular degeneration and cataracts BPH with urinary retention Surgical History: Tonsillectomy (~1959). Vasectomy 1997. EGD 2002 - normal. Multiple laryngoscopies. left below-the knee amputation 07/26/[address] Estrada Kelsey. Right big toe amputated and stents placed in right leg in 09/[address] Kelsey. Cystoscopy with prostate removal in 04/[address] Brian Family History: Positive for CAD, HTN, pancreatitis, hypothyroidism and syncope - Social History Smoking status: Current every day smoker Substance use type: does not use Alcohol intake frequency: does not drink Household members: spouse Current occupational status: disabled Current residence: Apartment/Private Home Social history: Primary care provider, Dr. Mo [employer] [facility] Dr. Velazquez Orthopedist Dr. James Review of Systems All systems PM: 10-point ROS was reviewed, no additional remarkable complaints except - Constitutional Constitutional: Present: daytime sleepiness, fatigue, malaise Comments: Insomnia - Musculoskeletal Musculoskeletal Comments: Right lower extremity stump with mild discomfort Medications Home Medications Medication Instructions Recorded Confirmed Type Clopidogrel Bisulfate [Plavix] 75 mg PO DAILY #0 10/27/10 06/23/17 History Lisinopril 2.5 mg PO HS #0 04/21/15 06/23/17 History Omeprazole 20 mg PO ACB 03/24/17 06/23/17 History Pravastatin [Pravachol] 20 mg PO HS 03/24/17 06/23/17 History Allergies Allergy/AdvReac Type Severity Reaction Status Date / Time Penicillins Allergy Unknown HIVES Verified 05/23/17 15:11 Exam Vital Signs: Temperature 98.4 F 06/24/17 08:00 Pulse Rate 91 06/24/17 09:30 Respiratory Rate 24 06/23/17 20:50 Blood Pressure 152/71 H 06/24/17 09:30 Pulse Oximetry 95 06/24/17 09:30 Height/Weight/BMI: Height 1.96 m Weight 109.1 kg Body Mass Index 28.5 - Constitutional Present: no acute distress, well nourished, well developed - Routine HEENT Exam Eye: Present: EOMI ENT: Present: mucous membranes moist, dentition normal - Routine Neck Exam Present: supple, full ROM - Routine Respiratory Exam Present: CTA bilaterally. Absent: wheezes - Routine Cardiovascular Exam Present: RRR, S1, S2. Absent: murmur - Routine Abdominal Exam Present: soft, normoactive bowel sounds, non distended. Absent: tenderness - Routine Extremities Exam Comments: Dressing to RLE - Routine Back/Spine/Pelvis Exam Back/Spine: Present: full ROM - Routine Skin Exam Present: intact, dry, warm - Routine Neurological Exam Present: alert, oriented X3, CN II-XII intact, moving all extremities - Routine Psychiatric Exam Present: normal affect Results - Labs CBC & Chem 7: 06/24/17 04:42 06/24/17 04:42 Assessment and Plan (1) S/P bilateral BKA (below knee amputation) Current visit: Yes Status: Acute Assessment and Plan: Impression Bilateral below the knee amputations. Status post right below knee amputation on 06/21 Recent sepsis with diabetic foot ulcer Diabetes Peripheral neuropathy Hypertension Insomnia Depression Plan Agree with admission to inpatient rehabilitation the care of Dr. Diego for ongoing strengthening of his bilateral thigh muscles. In addition to learning how to safely transfer. Patient is currently on vancomycin for treatment of recent sepsis and right diabetic foot wound. Pathology from amputation is pending. Once this has been resulted. It is hopeful we can discontinue vancomycin. We will continue to work on blood sugar control. Appreciate consultation by Dr. Velazquez. Patient did have several low blood sugars this morning in the 50s. Currently on NovoLog 19 units with breakfast and supper, 17 units with lunch and 46 units of Levemir at at bedtime. Home medications reviewed. Lisinopril increased to 5 mg daily. May need to consider 2nd agent for better blood pressure control, will continue to monitor Oxycodone for pain control Ambien to use for insomnia Lovenox SQ daily for prophylaxis Encourage work with PT and OT for ongoing strengthening [employer] saw patient yesterday for placement of stump paintings conservator. Appreciate medical consultation, the hospital service will continue to follow patient medically manage his existing comorbidities. At time of discharge medical care will return to his primary care provider, Dr. Mo Hospital Course Summary Disclaimer: The visit summary below is not to be considered part of the above Progress Note. Hospital Course: 06/24/17 Impression Bilateral below the knee amputations. Status post right below knee amputation on 06/21 Recent sepsis with diabetic foot ulcer Diabetes Peripheral neuropathy Hypertension Insomnia Depression Plan Agree with admission to inpatient rehabilitation the care of Dr. Diego for ongoing strengthening of his bilateral thigh muscles. In addition to learning how to safely transfer. Patient is currently on vancomycin for treatment of recent sepsis and right diabetic foot wound. Pathology from amputation is pending. Once this has been resulted. It is hopeful we can discontinue vancomycin. We will continue to work on blood sugar control. Appreciate consultation by Dr. Velazquez. Patient did have several low blood sugars this morning in the 50s. Currently on NovoLog 19 units with breakfast and supper, 17 units with lunch and 46 units of Levemir at at bedtime. Home medications reviewed. Lisinopril increased to 5 mg daily. May need to consider 2nd agent for better blood pressure control, will continue to monitor Oxycodone for pain control Ambien to use for insomnia Lovenox SQ daily for prophylaxis Encourage work with PT and OT for ongoing strengthening [employer] saw patient yesterday for placement of stump paintings conservator. Appreciate medical consultation, the hospital service will continue to follow patient medically manage his existing comorbidities. At time of discharge medical care will return to his primary care provider, Dr. Mo <Neha Chahal - Last Filed: 06/24/17 20:00> Consult Information - Data of Consult Primary Care Provider: Exam Vital Signs: Results - Labs CBC & Chem 7: 06/24/17 04:42 06/24/17 04:42 Assessment and Plan (1) S/P bilateral BKA (below knee amputation) Current visit: Yes Status: Acute Assessment and Plan: I have independently evaluated and examined this patient. I reviewed the chart, the patient's history, and the DIRECTOR OF CAREER SERVICES/PA's documented findings as above. We discussed and formulated the assessment and plan as above with additions as below: Manoj known from acute hospitalization. Currently he complains of inability to sleep during hospitalization and request that home dose of melatonin (15 mg at bedtime) be resumed. Pain control is slowly improving. Nursing reports that there is a white area overlying the de jesus just proximal to the incision which otherwise looks good. Patient describes having some nausea during vancomycin infusion but no vomiting. He denies dyspnea, chest pain, or palpitations. Blood pressure has been modestly elevated consistently. 163/71 Alert, NAD Respirations nonlabored, good airflow, breath sounds clear, Regular rhythm, S1-S2, abdomen soft, nontender, Right stump is dressed and dressing is dry. Surgical pathology reviewed-surgical margins are clear as anticipated. Acute osteomyelitis reported involving bone under plantar ulcer of the right foot. Outpatient culture AMY, gram-positive mala, and Indigo-not albicans. Discontinue vancomycin-do not believe additional antibiotics needed given white surgical margin. Lisinopril resumed at 5 mg due to persistent hypertension. Melatonin initiated at 4 mg at bedtime in conjunction with Ambien started yesterday and mirtazapine 7.5 mg at bedtime which did not transfer with discharge meds. Additional home medications resumed. DVT Prophylaxis: Lovenox Resuscitation Status: Full Code Hospital Course Summary Disclaimer: The visit summary below is not to be considered part of the above Progress Note.
--- NOTE | 2017-06-24 13:58 | Consultation ---
DATE OF CONSULT 06/24/2017 REASON FOR CONSULTATION Uncontrolled diabetes. HISTORY OF PRESENT ILLNESS Mr. Bazzi was transferred from the inpatient surgical service to the IRU on for physical therapy following his right below-knee amputation 3 days ago. He is still complaining of considerable pain and only very brief relief with his analgesic medication. He has had very little sleep at all the last two nights. He had some brief hypoglycemia in the afternoon on 06/23/2017 and required some tapering of his Humalog mealtime doses. He has had no further hypoglycemia since then. He has longstanding type 2 diabetes mellitus since 1986 that previously had been treated at home with 18 units of Humalog t.i.d. and 42 units of Lantus h.s. His fasting glucose this morning was 110. REVIEW OF SYSTEMS CONSTITUTIONAL: Unremarkable. 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 Also has dentures. RESPIRATORY: No cough or wheezing. CARDIOVASCULAR: No chest pain or palpitations. GI: No nausea, vomiting, diarrhea or constipation. : No dysuria. MUSCULOSKELETAL: Negative except for pain at amputation stump as above. NEUROLOGIC: Unremarkable. ALLERGIES Allergy to penicillin. PAST MEDICAL HISTORY Remarkable for type 2 diabetes mellitus, diabetic peripheral neuropathy, diabetic nephropathy, peripheral vascular disease, erectile dysfunction, gastroesophageal reflux disease, depression and benign prostatic hypertrophy. He is status post tonsillectomy, vasectomy, EGD, bilateral BKA, stents in right lower extremity, and cystoscopy with prostatectomy in April 2017. FAMILY HISTORY Coronary artery disease, hypertension, pancreatitis, hypothyroidism, and syncope. SOCIAL HISTORY Smokes 1-2 packs per day for 36 years. He does not drink alcohol. He is totally disabled. PHYSICAL EXAMINATION VITALS: Afebrile. Vital signs stable. GENERAL: Well-developed, thin male who is alert, oriented and in no acute distress. HEENT: Atraumatic, normocephalic. Edentulous. NECK: Without thyromegaly. LUNGS: Clear. HEART: Regular rate and rhythm with 2/6 systolic murmur. ABDOMEN: Normal bowel sounds. Soft without masses or tenderness. EXTREMITIES: Bilateral BKA with bandage over right stump. NEUROLOGIC: Grossly normal. PSYCHIATRIC: Normal affect. Normal thought process. Cooperative. ASSESSMENT 1. Type 2 diabetes mellitus, coming under better control. His doses are currently a little higher than when at home and will continue to be titrated as necessary. It is likely as his sepsis clears he will require lower doses. 2. Peripheral neuropathy, having lost his lower right leg now and not having any remaining distal extremity neuropathy. 3. Diabetic nephropathy. 4. Euthyroid sick syndrome. He did have a TSH of 0.32 with normal free T4 and free T3. As long as he remains clinically euthyroid we will plan to simply follow up the abnormal TSH after his stump wound has healed. RECOMMENDATIONS Follow fingerstick glucose fasting and 2 hours p.c. with ongoing titration of insulin. Thank you very much for asking my continued assistance in caring for this nice gentleman. I will follow him with you while he remains in the hospital. SHAMIKA
[2017-06-24] MEDS ORDERED: INFLUENZA VAC. INJ. ADMIN CHARGE INJ ONE (18:08)
[2017-06-24 18:13] VITALS: BMI 28.4
[2017-06-24] MEDS ORDERED: FALL RISK - PHARMACY CONSULT MC ONE (18:17)
--- NOTE | 2017-06-24 21:21 | IRU Plan of Care ---
U Overall Plan of Care - Date Date: 06/24/17 - Patient Impairments (1) S/P bilateral BKA (below knee amputation) Code(s): Z89.512 - Acquired absence of left leg below knee; Z89.511 - Acquired absence of right leg below knee Status: Acute Classification: Present on IRF Admission, IRF Tx That Should Address Diagnosis, Diagnosis Requiring Medical Follow Up (2) Diabetic peripheral neuropathy associated with type 2 diabetes mellitus Code(s): E11.42 - Type 2 diabetes mellitus with diabetic polyneuropathy Status : Chronic Classification: Present on IRF Admission, Diagnosis Requiring Medical Follow Up (3) Type 2 diabetes mellitus, uncontrolled Qualifiers: Diabetes mellitus complication status: with circulatory complication Diabetes mellitus complication detail: with other circulatory complications Diabetes mellitus assisted insulin use: with assisted use Qualified Code(s) : E11.59 - Type 2 diabetes mellitus with other circulatory complications; E11.65 - Type 2 diabetes mellitus with hyperglycemia; E11.65 - Type 2 diabetes mellitus with hyperglycemia; E11.65 - Type 2 diabetes mellitus with hyperglycemia; E11.65 - Type 2 diabetes mellitus with hyperglycemia; Z79.4 - [facility] (current) use of insulin; Z79.4 - [facility] (current) use of insulin; Z79.4 - watermaster (current) use of insulin; Z79.4 - watermaster (current) use of insulin Code(s): E11.65 - Type 2 diabetes mellitus with hyperglycemia Status: Chronic Classification: Present on IRF Admission, IRF Tx That Should Address Diagnosis, Diagnosis Requiring Medical Follow Up - Relevant Changes Relevant Changes: No Reviewed: I have reviewed the patient's information and concur with the finding and results of the pre-admission screen. Certification: I certify the patient for rehabilitation. - Medical Prognosis Medical Prognosis: Good Vital Signs: Last Vital Signs Temp 98.9 F 06/24/17 19:44 Pulse 90 06/24/17 19:44 Resp 18 06/24/17 19:44 BP 163/71 H 06/24/17 19:44 Pulse Ox 96 06/24/17 19:44 - Anticipated Interventions Anticipated Interventions: The patient requires inpatient IRF care for PT, OT, and/or ST for residuals remaining from [] resulting in muscular weakness and strength deficits. - Current Functional Status Failed Alternative Therapy: Arrived from Acute Care Patient Requires: The patient requires oversight by rehabilitation physician to manage their rehabilitation treatment plan and multidisciplinary approach to care that can only be provided in an IRF and requires a multidisciplinary approach to care, provided by professional PTs, OTs, rehabilitation nurses, and may require STs, dieticians, and RTS. This is not available in lesser levels of care. Physical Therapy Minutes: 90 Occupational Therapy Minutes: 90 Therapy: The patient is to receive therapy at least 5 days a week. - Anticipated LOS/Outcomes Anticipated Functional Outcome: After thorough review of the data, an individual plan of care has been developed. It is anticipated the patient will be able to return to his home and be able to transfer at modified independent level of function as well as perform most other ADL's at modified independent level. Anticipated Length of Stay (days): 7 Anticipated DC Destination: Home, Self Half-Way Safety Plan: The patient will be provided with the development of a Home Safety Plan for return to a home or home-like environment and and to ensure safety post discharge. - Plan to Avoid Complications Barriers to Attaining Goals: Weakness, Endurance, Pain Control Plan to Avoid Complications: The patient cannot receive this care in a lesser intensive setting such as Penitentiary or Outpatient Therapy due to the patient requiring the following : close monitoring of oral intake/nutriation, monitoring of blood glucose levels as well as a coordinated multidisciplinary approach to his rehabilitation. .
[2017-06-24] MEDS: PRAVASTATIN 20 MG TABLET PO SCH (22:17)
[2017-06-24] MEDS: MIRTAZAPINE 15 MG TABLET PO SCH (22:18)
[2017-06-24] MEDS: ZOLPIDEM 5 MG TABLET PO SCH (22:18)
[2017-06-24] MEDS: LISINOPRIL 5 MG TABLET PO SCH (22:19)
[2017-06-24] MEDS: INSULIN DETEMIR 100unit/ml INJECTION SQ SCH (22:20)
[2017-06-24] MEDS: MELATONIN 1 MG TABLET PO SCH (22:20)
[2017-06-24] MEDS: SALINE FLUSH 10ml SYRINGE IV PRN (22:30)
[2017-06-25] MEDS: Oxycodone *IR* 5 MG TABLET PO PRN ×4 (03:21→22:40)
[2017-06-25] MEDS: OMEPRAZOLE 20 MG CAPSULE PO SCH (05:57)
[2017-06-25] MEDS ORDERED: INSULIN ASPART 100unit/ml INJECTION SQ ONE (06:50)
[2017-06-25] MEDS: INSULIN ASPART 100unit/ml INJECTION SQ SCH ×3 (08:38→17:56)
[2017-06-25] MEDS: CLOPIDOGREL 75 MG TABLET PO SCH (08:39)
[2017-06-25] MEDS: NICOTINE 21 MG PATCH TD SCH (08:39)
[2017-06-25] MEDS: NICOTINE PATCH REMOVAL TD SCH (12:49)
[2017-06-25] MEDS: SALINE FLUSH 10ml SYRINGE IV PRN ×2 (15:57→22:40)
[2017-06-25] MEDS: ENOXAPARIN 40 MG/0.4 ML INJECTION SQ SCH (15:57)
[2017-06-25] MEDS: INSULIN DETEMIR 100unit/ml INJECTION SQ SCH (22:37)
[2017-06-25] MEDS: LISINOPRIL 5 MG TABLET PO SCH (22:38)
[2017-06-25] MEDS: MELATONIN 1 MG TABLET PO SCH (22:38)
[2017-06-25] MEDS: MIRTAZAPINE 15 MG TABLET PO SCH (22:39)
[2017-06-25] MEDS: PRAVASTATIN 20 MG TABLET PO SCH (22:39)
[2017-06-25] MEDS: ZOLPIDEM 5 MG TABLET PO SCH (22:40)
[2017-06-26] MEDS: OMEPRAZOLE 20 MG CAPSULE PO SCH ×2 (04:29→06:00)
[2017-06-26] MEDS: SALINE FLUSH 10ml SYRINGE IV PRN (08:04)
[2017-06-26] MEDS: ENOXAPARIN 40 MG/0.4 ML INJECTION SQ SCH (08:05)
[2017-06-26] MEDS: CLOPIDOGREL 75 MG TABLET PO SCH (08:50)
[2017-06-26] MEDS: INSULIN ASPART 100unit/ml INJECTION SQ SCH ×3 (08:50→18:03)
[2017-06-26] MEDS: NICOTINE 21 MG PATCH TD SCH (08:51)
[2017-06-26] MEDS: Oxycodone *IR* 5 MG TABLET PO PRN ×2 (08:51→21:43)
[2017-06-26] MEDS: NICOTINE PATCH REMOVAL TD SCH (08:51)
[2017-06-26] MEDS: MELATONIN 1 MG TABLET PO SCH (21:16)
[2017-06-26] MEDS: MIRTAZAPINE 15 MG TABLET PO SCH (21:17)
[2017-06-26] MEDS: LISINOPRIL 5 MG TABLET PO SCH (21:17)
[2017-06-26] MEDS: SENNA + DOCUSATE TABLET PO SCH (21:17)
[2017-06-26] MEDS: ZOLPIDEM 5 MG TABLET PO SCH (21:17)
[2017-06-26] MEDS: PRAVASTATIN 20 MG TABLET PO SCH (21:17)
[2017-06-26] MEDS: INSULIN DETEMIR 100unit/ml INJECTION SQ SCH (21:56)
[2017-06-27] MEDS: Oxycodone *IR* 5 MG TABLET PO PRN ×4 (02:12→20:45)
[2017-06-27] MEDS: OMEPRAZOLE 20 MG CAPSULE PO SCH (06:18)
--- NOTE | 2017-06-27 08:05 | Endocrinology Progress Note ---
Subjective Principal diagnosis: Type 2 diabetes mellitus, uncontrolled Interval history: Had some afternoon hypoglycemia Tuesday, corrected with lower dose of lunch Novolog. Then had hypoglycemia Tuesday evening after insulin but before starting to eat. Still having a lot of pain overnight. Exam Vital signs: Temperature 98.0 F 06/27/17 07:09 Pulse Rate 92 06/27/17 07:09 Respiratory Rate 18 06/27/17 07:09 Blood Pressure 134/75 06/27/17 07:09 Pulse Oximetry 96 06/27/17 07:09 - Constitutional no acute distress, well developed, thin - Routine HEENT Exam Head: Present: normocephalic, atraumatic Eye: Present: EOMI ENT: Present: mucous membranes moist - Routine Neck Exam Absent: thyromegaly - Routine Respiratory Exam Absent: dyspnea - Routine Cardiovascular Exam Present: RRR - Routine Abdominal Exam Present: normoactive bowel sounds - Routine Extremities Exam Comments: Bilateral BKA; right stump dressing. - Routine Skin Exam Present: dry, warm - Routine Neurological Exam Present: alert, oriented X3, moving all extremities - Routine Psychiatric Exam Present: normal affect, normal thought process, cooperative, good insight - Additional findings Additional findings: Laboratory Tests 06/26/17 06/26/17 06/26/17 10:18 14:17 15:50 Glucometer 84 167 126 06/26/17 06/26/17 06/26/17 18:28 19:11 19:37 Glucometer 80 50 44 06/26/17 06/27/17 06/27/17 19:56 05:09 07:22 Glucometer 124 261 198 Assessment and Plan (1) assisted current use of insulin Current visit: Yes Status: Chronic (2) Type 2 diabetes mellitus, uncontrolled Current visit: Yes Status: Chronic Will need evening Novolog tapered. Reduce to 17 units.
[2017-06-27] MEDS: SENNA + DOCUSATE TABLET PO SCH ×2 (08:59→20:40)
[2017-06-27] MEDS: NICOTINE 21 MG PATCH TD SCH (08:59)
[2017-06-27] MEDS: INSULIN ASPART 100unit/ml INJECTION SQ SCH ×3 (09:01→18:37)
[2017-06-27] MEDS: CLOPIDOGREL 75 MG TABLET PO SCH (09:01)
[2017-06-27] MEDS: NICOTINE PATCH REMOVAL TD SCH (09:02)
--- NOTE | 2017-06-27 11:06 | IRU Progress Note ---
- Subjective/Serverity of Illness Marco had at least one episode of hypoglycemia over the weekend before he started to eat. He is followed by Dr. Amilcar Velazquez in this regard and his insulin has been adjusted. He states that his pain continues to be a significant issue. He reports that he is constipated. His appetite is reduced in general. He is now off his vancomycin. He remains afebrile. He denies any chest pain or shortness of breath. Exam Vital Signs: Temperature 98.0 F 06/27/17 07:09 Pulse Rate 92 06/27/17 07:09 Respiratory Rate 18 06/27/17 07:09 Blood Pressure 134/75 06/27/17 07:09 Pulse Oximetry 96 06/27/17 07:09 Height/Weight/BMI: Height 1.96 m Weight 109 kg Body Mass Index 28.4 Comments: The patient is awake, alert and oriented and in no acute distress at present although complains of pain with any touching of the right lower extremity. Pupils are equal. The neck is supple. Chest: Clear to auscultation bilaterally. Cor: RR with no gallop, click nor murmur Abd: soft with normo-active bowel sounds. There are no masses, no tenderness and no guarding. Extremities: Has bilateral [id number] amputations. I did not remove the dressing from the right leg at this time. IRU A/P (1) S/P bilateral BKA (below knee amputation) Current visit: Yes Status: Acute Continues to have significant pain control issues. We will try to address this. 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: with detention use Qualified Code(s) : E11.59 - Type 2 diabetes mellitus with other circulatory complications; E11.65 - Type 2 diabetes mellitus with hyperglycemia; E11.65 - Type 2 diabetes mellitus with hyperglycemia; E11.65 - Type 2 diabetes mellitus with hyperglycemia; E11.65 - Type 2 diabetes mellitus with hyperglycemia; Z79.4 - jail (current) use of insulin; Z79.4 - long term care administrator (current) use of insulin; Z79.4 - jail (current) use of insulin; Z79.4 - long term care administrator (current) use of insulin Current visit: Yes Status: Chronic Cedric had hypoglycemia over the weekend. Dr. Velazquez has adjusted his insulin. Appetite is poor he states. DVT Prophylaxis: Lovenox Resuscitation Status: Full Code - Course Hospital Course: Cedric Diego MD: 06/27/17 11:07 Cedric is settling into the rehabilitation routine. Had hypoglycemia over the weekend. Dr. Velazquez has adjusted insulin. Pain control is an issue. He remains on Oxycodone IR. 06/27/17 11:08 - Interventions to Obtain Goals PT Treatment Plan: Balance/Proprioception, Functional Activities, Manual Therapy , Patient/Family Education, Therapeutic Exercise OT Treatment Plan: ADL (Basic Care), Balance Training, Pt./Family Education
[2017-06-27] MEDS: ENOXAPARIN 40 MG/0.4 ML INJECTION SQ SCH (14:31)
[2017-06-27] MEDS: CYCLOBENZAPRINE 10 MG TABLET PO PRN ×2 (17:53→23:39)
[2017-06-27] MEDS: INSULIN DETEMIR 100unit/ml INJECTION SQ SCH (20:38)
[2017-06-27] MEDS: LISINOPRIL 5 MG TABLET PO SCH (20:39)
[2017-06-27] MEDS: MIRTAZAPINE 15 MG TABLET PO SCH (20:39)
[2017-06-27] MEDS: MELATONIN 1 MG TABLET PO SCH (20:40)
[2017-06-27] MEDS: PRAVASTATIN 20 MG TABLET PO SCH (20:40)
[2017-06-27] MEDS: ZOLPIDEM 5 MG TABLET PO SCH (20:45)
[2017-06-27] MEDS: SALINE FLUSH 10ml SYRINGE IV PRN (20:54)
[2017-06-28] MEDS: OMEPRAZOLE 20 MG CAPSULE PO SCH ×2 (05:24→22:24)
[2017-06-28] MEDS: Oxycodone *IR* 5 MG TABLET PO PRN (05:24)
--- NOTE | 2017-06-28 07:09 | Endocrinology Progress Note ---
Subjective Principal diagnosis: Type 2 diabetes mellitus, uncontrolled Interval history: Had some afternoon hypoglycemia again yesterday. Complains of sore muscles from PT. In good spirits despite recognizing that he will not be in shape to go home by his birthday in 2 days. Exam Vital signs: Temperature 98.4 F 06/27/17 21:52 Pulse Rate 87 06/27/17 21:52 Respiratory Rate 18 06/27/17 21:52 Blood Pressure 136/75 06/27/17 21:52 Pulse Oximetry 96 06/27/17 21:52 - Constitutional no acute distress, well developed, thin - Routine HEENT Exam Head: Present: normocephalic, atraumatic Eye: Present: EOMI ENT: Present: mucous membranes moist - Routine Neck Exam Absent: thyromegaly - Routine Respiratory Exam Absent: dyspnea - Routine Cardiovascular Exam Present: RRR - Routine Abdominal Exam Present: normoactive bowel sounds - Routine Extremities Exam Comments: Bilateral BKA. - Routine Skin Exam Present: dry, warm - Routine Neurological Exam Present: alert, oriented X3, moving all extremities - Routine Psychiatric Exam Present: normal affect, normal thought process, cooperative, good insight - Additional findings Additional findings: Laboratory Tests 06/27/17 06/27/17 06/27/17 10:17 14:06 14:48 Glucometer 132 80 52 06/27/17 06/27/17 06/28/17 15:45 20:26 06:02 Glucometer 98 190 176 Assessment and Plan (1) long term acute care registered nurse current use of insulin Current visit: Yes Status: Chronic (2) Type 2 diabetes mellitus, uncontrolled Current visit: Yes Status: Chronic Continues to have reduced insulin needs as healing decreases physical stress. Will further taper lunch Novolog to 15 units.
[2017-06-28] MEDS: CYCLOBENZAPRINE 10 MG TABLET PO PRN (07:25)
[2017-06-28] MEDS: INSULIN ASPART 100unit/ml INJECTION SQ SCH ×2 (09:36→18:33)
--- NOTE | 2017-06-28 10:34 | IRU Progress Note ---
- Subjective/Serverity of Illness Marco states that he is quite sleepy. He received his Flexeril for muscle spasms. I think this is probably too much for him in addition to his oxycodone. He reports muscle spasms in the neck muscles bilaterally and posteriorly. Also had some discomfort in the left groin. Seems to been made worse by his increased activity. With regard to his diabetes, I have reviewed his blood sugars. Did drop to a low of [address] Velazquez has reduced the noon meal time insulin in this regard. He has not been running any fever. He remains off antibiotics. He denies any nausea or vomiting. He states his bowels are moving. He reports episodes of seeing people in the hallway out of the corner of his eye. Then when he looks that direction they are not there. This is been going on for the past 2-3 days. I am uncertain if this is much beyond the realm of normal however. Denies any other visual hallucinations. Update on medical issues we are actively managing/monitorin. Bilateral below the knee amputations with the most recent one being on the right side. Appears to have adequate healing of the right BKA stump. I inspected the wound yesterday and there was no evidence of infection or inflammation. He is having some cramps in the left groin likely because he is using the left side more at the present time. 2. Recent wound infection: This problem is resolved. He is no longer on antibiotics. He is not running a fever. 3. Diabetes mellitus type 2 on insulin, not controlled. He has had reduced insulin requirements in view of his increased activity, less stress and lack of infection. Dr. Velazquez is closely monitoring and has adjusted his mealtime insulin. 3. Atherosclerotic peripheral vascular arterial disease. This appears to be stable at present. 4. Chronic tobacco use. He reports that he has tried to stop numerous times. At the present time he is tolerating his cessation adequately. 5. Diabetic peripheral neuropathy: This continues to be an issue and therapy is working with him with regard to numbness of his upper extremities and compensating for this with their activities. 6. He complains of significant insomnia. Today however he is actually excessively sleepy likely due to the use of Flexeril. 7. Diffuse muscle cramping: I reviewed his medications. He was on pravastatin prior to admission. Likely his additional muscle spasms and cramps are related to increased therapy. Has discomfort in the neck posteriorly and laterally. Has discomfort in left groin. We will discontinue the Flexeril because he is excessively sleepy and recommend local modalities for the cramping. Exam Vital Signs: Temperature 98.1 F 06/28/17 07:31 Pulse Rate 87 06/27/17 21:52 Respiratory Rate 20 06/28/17 07:31 Blood Pressure 139/62 06/28/17 07:31 Pulse Oximetry 95 06/28/17 07:31 Height/Weight/BMI: Height 1.96 m Weight 109 kg Body Mass Index 28.4 Comments: The patient is awake and oriented and in no acute distress. He is however somewhat sleepy this morning. Pupils are equal. The neck is supple. Comparison muscle spasms in the neck. Chest: Clear to auscultation bilaterally. Cor: RR with no gallop, click nor murmur Abd: soft with normo-active bowel sounds. There are no masses, no tenderness and no guarding. Extremities: Right stump wound inspected yesterday and was unremarkable. Results IRU - Labs Labs: Reviewed labs as well as other providers (Dr. Velazquez's) notes. IRU A/P (1) S/P bilateral BKA (below knee amputation) Current visit: Yes Status: Acute Wound appeared to be healing adequately as of yesterday. Continues to have a lot of discomfort in the stump side. In my opinion this is not be on the range of normal. He is on oxycodone IR. (2) Diabetic peripheral neuropathy associated with type 2 diabetes mellitus Problem details: Slightly improved Current visit: No Status: Chronic (3) Type 2 diabetes mellitus, uncontrolled Qualifiers: Diabetes mellitus complication status: with circulatory complication Diabetes mellitus complication detail: with other circulatory complications Diabetes mellitus terminologist insulin use: with group home use Qualified Code(s) : E11.59 - Type 2 diabetes mellitus with other circulatory complications; E11.65 - Type 2 diabetes mellitus with hyperglycemia; E11.65 - Type 2 diabetes mellitus with hyperglycemia; E11.65 - Type 2 diabetes mellitus with hyperglycemia; E11.65 - Type 2 diabetes mellitus with hyperglycemia; Z79.4 - senior living (current) use of insulin; 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 Dr. Velazquez has reduced mealtime insulin at noon. I reviewed his blood sugars. They are otherwise stable. (4) Muscle spasm Current visit: Yes Status: Acute Reports a lot of muscle spasms in his neck and left groin. I think this is due to increased activity. He was on pravastatin prior to admission so it is less likely this is the culprit. However, when we gave him Flexeril he was excessively sedated and for this reason we will discontinue the medication and rely on local modalities of massage, heat, ice etc. DVT Prophylaxis: Lovenox Resuscitation Status: Full Code - Course Hospital Course: Cedric Diego MD: 06/27/17 11:07 Cedric is settling into the rehabilitation routine. Had hypoglycemia over the weekend. Dr. Velazquez has adjusted insulin. Pain control is an issue. He remains on Oxycodone IR. 06/27/17 11:08 06/28/17 10:37 Complains of spasms of neck muscles and left groin. Tried Flexeril but this made him too sleepy. We will rely on local modalities. Blood sugars noted. He was a bit low after lunch yesterday and Dr. Velazquez has reduced his insulin dose. Reports episodes where he sees someone out of the corner of his eye in the hallway and then they are not there. Not certain if this is related to oxycodone or just normal situation. - Interventions to Obtain Goals PT Treatment Plan: Balance/Proprioception, Functional Activities, Manual Therapy , Patient/Family Education, Therapeutic Exercise OT Treatment Plan: ADL (Basic Care), Balance Training, Pt./Family Education Goals Progress/Modifications: Time spent with patient and on floor reviewing data and documentin min Barriers to dismissal: Pain, endurance, muscle spasms Medical decision-making: We attempted Flexeril for his muscle spasms but this was too much for him. He is too sedated. We'll discontinue that today. Secondly we reviewed his blood sugars. He has reduced insulin requirements due to increased activity with therapy. Dr. Velazquez has appropriately adjusted his mealtime insulin at noon to avoid hypoglycemia. We discussed with Marco the issue of his muscle spasms and recommend local modalities for relief. I would prefer not to use muscle relaxers in view of his excess sedation. Finally, we talked about his potential visual hallucinations. Again I'm not certain this is much beyond the realm of normal although he did mention that as an issue. We'll keep an eye on it and if it worsens consider changing pain medication.
[2017-06-28] MEDS: CLOPIDOGREL 75 MG TABLET PO SCH (10:45)
[2017-06-28] MEDS: SENNA + DOCUSATE TABLET PO SCH ×2 (10:45→22:26)
[2017-06-28] MEDS: NICOTINE 21 MG PATCH TD SCH (10:53)
[2017-06-28] MEDS: ENOXAPARIN 40 MG/0.4 ML INJECTION SQ SCH (10:54)
[2017-06-28] MEDS: NICOTINE PATCH REMOVAL TD SCH (10:54)
[2017-06-28] MEDS: OXYCODONE/APAP 7.5 MG/325 MG TABLET PO PRN ×2 (11:24→22:33)
[2017-06-28] MEDS ORDERED: INSULIN ASPART 100unit/ml INJECTION SQ SCH ×2 (11:30→21:30)
[2017-06-28] MEDS: INSULIN DETEMIR 100unit/ml INJECTION SQ SCH (22:24)
[2017-06-28] MEDS: MELATONIN 1 MG TABLET PO SCH (22:25)
[2017-06-28] MEDS: LISINOPRIL 5 MG TABLET PO SCH (22:25)
[2017-06-28] MEDS: PRAVASTATIN 20 MG TABLET PO SCH (22:26)
[2017-06-28] MEDS: ZOLPIDEM 5 MG TABLET PO SCH (22:26)
[2017-06-28] MEDS: MIRTAZAPINE 15 MG TABLET PO SCH (22:26)
[2017-06-28] MEDS: SALINE FLUSH 10ml SYRINGE IV PRN (22:35)
[2017-06-29] MEDS: SALINE FLUSH 10ml SYRINGE IV PRN ×3 (04:09→22:28)
[2017-06-29] MEDS: OMEPRAZOLE 20 MG CAPSULE PO SCH (06:05)
--- NOTE | 2017-06-29 07:20 | Endocrinology Progress Note ---
Subjective Principal diagnosis: Type 2 diabetes mellitus, uncontrolled Interval history: Had some mild afternoon hypoglycemia (61), then raquel to 311 after omitting supper insulin. Remains in good spirits. Exam Vital signs: Temperature 97.9 F 06/28/17 19:50 Pulse Rate 92 06/28/17 19:50 Respiratory Rate 16 06/28/17 19:50 Blood Pressure 133/67 06/28/17 19:50 Pulse Oximetry 95 06/28/17 19:50 - Constitutional no acute distress, well developed, thin - Routine HEENT Exam Head: Present: normocephalic, atraumatic Eye: Present: EOMI ENT: Present: mucous membranes moist - Routine Neck Exam Absent: thyromegaly - Routine Respiratory Exam Absent: dyspnea - Routine Cardiovascular Exam Present: RRR - Routine Abdominal Exam Present: normoactive bowel sounds - Routine Extremities Exam Present: amputation (bilateral BKA) - Routine Skin Exam Present: dry, warm - Routine Neurological Exam Present: alert, oriented X3, moving all extremities - Routine Psychiatric Exam Present: normal affect, normal thought process, good insight - Additional findings Additional findings: Laboratory Tests 06/28/17 06/28/17 06/28/17 11:22 13:03 13:41 Glucometer 85 61 98 06/28/17 06/28/17 06/28/17 16:30 18:32 20:14 Glucometer 157 311 285 06/28/17 06/29/17 21:07 06:01 Glucometer 254 154 Assessment and Plan (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 Will observe with slightly less lunch insulin.
[2017-06-29] MEDS ORDERED: INSULIN ASPART 100unit/ml INJECTION SQ SCH ×3 (07:45→11:58)
[2017-06-29] MEDS: CLOPIDOGREL 75 MG TABLET PO SCH (09:49)
[2017-06-29] MEDS: ENOXAPARIN 40 MG/0.4 ML INJECTION SQ SCH (09:49)
[2017-06-29] MEDS: NICOTINE 21 MG PATCH TD SCH (09:49)
[2017-06-29] MEDS: SENNA + DOCUSATE TABLET PO SCH ×2 (09:49→22:26)
[2017-06-29] MEDS: NICOTINE PATCH REMOVAL TD SCH (09:49)
--- NOTE | 2017-06-29 10:00 | Progress Note ---
<Loyda Day V - Last Filed: 06/29/17 09:54> - Date 06/29/17 Subjective: Mr Bazzi is seen today in follow up following breakfast. He reports that overall he is feeling good however is not as strong as he hoped. Yesterday was fatigued and had a difficult time staying awake for therapy. Blood sugars overnight have been better. However, patient did have a low sugar yesterday afternoon down to 61. Objective Vital signs: Temperature 98 F 06/29/17 08:38 Pulse Rate 78 06/29/17 08:38 Respiratory Rate 16 06/29/17 08:38 Blood Pressure 123/62 06/29/17 08:38 Pulse Oximetry 96 06/29/17 08:38 Height/Weight/BMI: Height 1.6 m Weight 109 kg Body Mass Index 28.4 - Constitutional Present: well nourished, well developed - Routine HEENT Exam Eye: Present: EOMI ENT: Present: mucous membranes moist, dentition normal - Routine Respiratory Exam Present: CTA bilaterally. Absent: wheezes - Routine Cardiovascular Exam Present: RRR, S1, S2. Absent: murmur - Routine Abdominal Exam Present: soft, normoactive bowel sounds, non distended. Absent: tenderness - Routine Extremities Exam Comments: Bilateral BKA - Routine Skin Exam Present: intact, dry, warm - Routine Neurological Exam Present: alert, oriented X3, CN II-XII intact - Routine Lymphatic Exam Lymphatic: Absent: adenopathy - Routine Psychiatric Exam Present: normal affect, cooperative Results - Labs CBC & Chem 7: 06/29/17 04:11 06/29/17 04:11 Assessment and Plan (1) S/P bilateral BKA (below knee amputation) Current visit: Yes Status: Acute Assessment and Plan: Impression Bilateral below the knee amputations. Status post right below knee amputation on 06/21 Recent sepsis with diabetic foot ulcer Diabetes Peripheral neuropathy Hypertension Insomnia Depression Plan Will change Ambien to PRN rather than scheduled. Also has scheduled Melatonin. Vancomycin discontinued following review of pathology report. Continue Lisinopril at 5 mg due to persistent hypertension. Lovenox subcutaneous daily for DVT prophylaxis Appreciate consultation by Dr. Velazquez for recommendations regarding glycemic control. Continue to encourage work with PT and OT for ongoing strengthening Hospital Course Summary Disclaimer: The visit summary below is not to be considered part of the above Progress Note. Hospital Course: 06/24/17 Impression Bilateral below the knee amputations. Status post right below knee amputation on 06/21 Recent sepsis with diabetic foot ulcer Diabetes Peripheral neuropathy Hypertension Insomnia Depression Plan Agree with admission to inpatient rehabilitation the care of Dr. Diego for ongoing strengthening of his bilateral thigh muscles. In addition to learning how to safely transfer. Patient is currently on vancomycin for treatment of recent sepsis and right diabetic foot wound. Pathology from amputation is pending. Once this has been resulted. It is hopeful we can discontinue vancomycin. We will continue to work on blood sugar control. Appreciate consultation by Dr. Velazquez. Patient did have several low blood sugars this morning in the 50s. Currently on NovoLog 19 units with breakfast and supper, 17 units with lunch and 46 units of Levemir at at bedtime. Home medications reviewed. Lisinopril increased to 5 mg daily. May need to consider 2nd agent for better blood pressure control, will continue to monitor Oxycodone for pain control Ambien to use for insomnia Lovenox SQ daily for prophylaxis Encourage work with PT and OT for ongoing strengthening [employer] saw patient yesterday for placement of stump senior software tester. Appreciate medical consultation, the hospital service will continue to follow patient medically manage his existing comorbidities. At time of discharge medical care will return to his primary care provider, Dr. Mo 06/29/17 Plan Will change Ambien to PRN rather than scheduled. Also has scheduled Melatonin. Vancomycin discontinued following review of pathology report. Continue Lisinopril at 5 mg due to persistent hypertension. Lovenox subcutaneous daily for DVT prophylaxis Appreciate consultation by Dr. Velazquez for recommendations regarding glycemic control. Continue to encourage work with PT and OT for ongoing strengthening <Neha Chahal - Last Filed: 06/29/17 20:34> - Date 06/29/17 Results - Labs CBC & Chem 7: 06/29/17 04:11 06/29/17 04:11 Assessment and Plan (1) S/P bilateral BKA (below knee amputation) Current visit: Yes Status: Acute Assessment and Plan: I have independently evaluated and examined this patient. I reviewed the chart, the patient's history, and the SUPERVISOR ELECTRONICS INSPECTION/PA's documented findings as above. We discussed and formulated the assessment and plan as above with additions as below: Cedric reports he sleeping better and denies ongoing hallucinations that he was experiencing with the muscle relaxant he received earlier in the hospital course. He is tolerating stump senior software tester and reports he's going home early next week. NAD, talkative as always Respirations nonlabored, good airflow Regular rhythm, abdomen benign Creatinine is up slightly, minor reactive thrombocytosis Creatinine may be up slightly after initiation of lisinopril-continue to monitor. Blood pressure has improved. Hemoglobin has not started to rebound following surgery-add iron sulfate; will need to monitor closely for constipation. Flexeril discontinued 2 days ago due to side effects. DVT Prophylaxis: [facility] Course Summary Disclaimer: The visit summary below is not to be considered part of the above Progress Note.
--- NOTE | 2017-06-29 10:15 | IRU Progress Note ---
- Subjective/Serverity of Illness Marco reports that his pain management is much improved since we changed from oxycodone IR to Percocet. Was able to sleep better last night. In addition, he is more alert this morning since we have stopped the Flexeril. His muscle spasms /cramps have improved although still aren't issue from time to time. His blood sugars have been variable being down to 61 and up to 311. Dr. Velazquez and hospitalists are following. He states bowels are moving adequately. He is progressing with therapy. Review of therapy notes indicates that his transfers are improving. Exam Vital Signs: Temperature 98 F 06/29/17 08:38 Pulse Rate 78 06/29/17 08:38 Respiratory Rate 16 06/29/17 08:38 Blood Pressure 123/62 06/29/17 08:38 Pulse Oximetry 96 06/29/17 08:38 Height/Weight/BMI: Height 1.6 m Weight 109 kg Body Mass Index 28.4 Comments: The patient is awake, alert and oriented and in no acute distress. Pupils are equal. The neck is supple. Chest: Clear to auscultation bilaterally. Cor: RR with no gallop, click nor murmur Abd: soft with normo-active bowel sounds. There are no masses, no tenderness and no guarding. Extremities: Right stump is dressed at the present time and I did not remove the dressing. Results IRU - Labs Labs: I reviewed recent laboratory studies including glucometer readings. Also reviewed Dr. Velazquez's notes and hospitalists notes. IRU A/P (1) S/P bilateral BKA (below knee amputation) Current visit: Yes Status: Acute Marco states that his pain is much more well managed with the Percocet compared to the oxycodone IR. He slept better last night as a result. Continues to progress with therapy and is cooperative. 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 No substantial hypoglycemic spells are noted. (4) Muscle spasm Current visit: Yes Status: Acute Marco states that his muscle spasms have improved. We have stopped the Flexeril which made him too sleepy. DVT Prophylaxis: Lovenox Resuscitation Status: Full Code - Course Hospital Course: Cedric Diego MD: 06/27/17 11:07 Cedric is settling into the rehabilitation routine. Had hypoglycemia over the weekend. Dr. Velazquez has adjusted insulin. Pain control is an issue. He remains on Oxycodone IR. 06/27/17 11:08 06/28/17 10:37 Complains of spasms of neck muscles and left groin. Tried Flexeril but this made him too sleepy. We will rely on local modalities. Blood sugars noted. He was a bit low after lunch yesterday and Dr. Velazquez has reduced his insulin dose. Reports episodes where he sees someone out of the corner of his eye in the hallway and then they are not there. Not certain if this is related to oxycodone or just normal situation. 06/29/17 11:46 Has better pain control with Percocet compared oxycodone IR. Slept better last night. Progressing with therapy. Less sleepy during the daytime as we stopped Flexeril. Blood sugars reviewed and are variable. - Interventions to Obtain Goals PT Treatment Plan: Balance/Proprioception, Functional Activities, Manual Therapy , Patient/Family Education, Therapeutic Exercise OT Treatment Plan: ADL (Basic Care), Balance Training, Pt./Family Education
[2017-06-29] MEDS: OXYCODONE/APAP 7.5 MG/325 MG TABLET PO PRN ×3 (12:17→22:26)
--- NOTE | 2017-06-29 14:23 | IRU Team Meeting ---
IRU Team Meeting - Nursing Bladder Assistive Devices Utilized:: Urinal, Bedside Commode Bladder Management Level of Assist: Modified Independent Bladder Frequency of Accidents: No accidents Bowel Assistive Devices Utilized:: Medication Bowel Management Level of Assist: Modified Independent Bowel Frequency of Accidents: No accidents Vital Signs: Vital Signs - 24 hr 06/28/17 16:00 06/28/17 19:50 06/29/17 08:00 Temperature 98.0 F 97.9 F 98.0 F Pulse Rate 89 92 76 Respiratory Rate 16 16 14 Blood Pressure 121/55 133/67 123/62 Pulse Oximetry 93 95 97 06/29/17 08:38 Temperature 98 F Pulse Rate 78 Respiratory Rate 16 Blood Pressure 123/62 Pulse Oximetry 96 Current Medications: Acetaminophen (Tylenol) 650 mg PO Q5H PRN PRN Reason: Discomfort Albuterol/Ipratropium (Duoneb) 3 ml IPPB RTQID PRN Bisacodyl (Dulcolax) 10 mg RECTALLY DAILY PRN PRN Reason: Constipation Clopidogrel Bisulfate (Plavix) 75 mg PO DAILY [facility] Last Admin: 06/29/17 09:49 Dose: 75 mg Enoxaparin Sodium (Lovenox) 40 mg SQ DAILY [facility] Last Admin: 06/29/17 09:49 Dose: 40 mg Insulin Aspart (Novolog) 17 unit SQ ACS [facility] Last Admin: 06/28/17 18:33 Dose: 17 unit Insulin Aspart (Novolog) 2 unit SQ ONE TIME [facility] Last Admin: 06/28/17 21:30 Dose: 2 unit Insulin Aspart (Novolog) 12 unit SQ ACL [facility] Insulin Aspart (Novolog) 17 unit SQ ACB15 [facility] Insulin Detemir (Levemir) 46 unit SQ HS [facility] Last Admin: 06/28/17 22:24 Dose: 46 unit Lisinopril (Prinivil) 5 mg PO HS [facility] Last Admin: 06/28/17 22:25 Dose: 5 mg Magnesium Hydroxide (Mom) 30 ml PO DAILY PRN PRN Reason: Constipation Last Admin: 06/27/17 02:22 Dose: 30 ml Melatonin (Melatonin) 4 mg PO HS [facility] Last Admin: 06/28/17 22:25 Dose: 4 mg Mirtazapine (Remeron) 7.5 mg PO HS [facility] Last Admin: 06/28/17 22:26 Dose: 7.5 mg Nicotine (Nicoderm) 21 mg TD DAILY [facility] Last Admin: 06/29/17 09:49 Dose: 21 mg Nicotine (Nicotine Patch Removal) 1 removal TD DAILY [facility] Last Admin: 06/29/17 09:49 Dose: 1 removal Omeprazole (Prilosec) 20 mg PO ACB [facility] Last Admin: 06/29/17 06:05 Dose: 20 mg Oxycodone/Acetaminophen (Percocet 7.5/325) 1 - 2 tab PO Q4H PRN PRN Reason: Pain Last Admin: 06/29/17 12:17 Dose: 1 tab Polyethylene Glycol (Miralax) 17 gm PO DAILY PRN PRN Reason: Constipation Pravastatin Sodium (Pravachol) 20 mg PO HS [facility] Last Admin: 06/28/17 22:26 Dose: 20 mg Senna/Docusate Sodium (Senna Plus Tablet) 1 tab PO BID [facility] Last Admin: 06/29/17 09:49 Dose: 1 tab Sodium Chloride (Iv Flush) 10 - 80 ml IV PRN PRN PRN Reason: Flushing Last Admin: 06/29/17 04:09 Dose: 30 ml Zolpidem Tartrate (Ambien) 5 mg PO HS PRN PRN Reason: Insomnia Current Medical Issues: Diabetes mellitus with hypoglycemic episodes, hx of chronic tobacco use, DM with peripheral neuropathy in upper extremities, recent severe wound infection, S/P Right BKA Comments: I certify that I personally led the interdisciplinary team meeting and agree with comments, barriers and goals indicated. Team meeting was held in the patient's room with the patient and the following family members present: patient alone. Mr. Bazzi continues to complain of discomfort in the neck area which at times is severe. He is on pain medication in this regard as well as for the recent right [id number] amputation. Wound appears to be healing nicely. His blood sugars are variable and he is having some hypoglycemic spells. He is followed by Dr. Velazquez in this regard. Hemoglobin remains low at 9.7 g percent. - Ulysses Lara is on a consistent carbohydrate 2200-calorie diet. He is eating better- between 80-100% of his meals. He is on basal insulin daily as well as bolus with each meal. His insulin dose has been adjusted. Had recent hypoglycemic episode (48) requiring 4 cans of grape juice to bring it up. Supplements have now been discontinued secondary to adequate oral intake. - Physical Therapy Bed, Chair, Wheelchair Transfer Assist: Stand By Assist/Supervision Ambulation Ability: Patient Unsafe/Unable Wheelchair Propulsion Ability: Stand By Assist/Supervision Wheelchair Propulsion Distance: 150 Stair Climbing Ability: Patient Unsafe/Unable Car Transfer Ability: Stand By Assist/Supervision Comments: Marco has done well with physical therapy. He now is at supervision level for all functional mobility activities with the use of sliding board or depression transfers. It is recommended the patient wear his left prosthetic device during all transfers and use of sliding board when patient is fatigued. He is able to complete car transfer today with use of sliding board. Has difficulty demonstrating right knee/hip extension. Goals will be to improve range of motion of the right knee as well as extension of the hips. In addition, he will progress from standby assist to modified independent. - Occupational Therapy Eating Ability: Independent Grooming Ability: Modified Independent Bathing Ability: Modified Independent Upper Body Dressing Ability: Independent Lower Body Dressing Ability: Modified Independent Tub Transfer Assist: Stand By Assist/Supervision Toileting Assist: Modified Independent Toilet Transfer Assist: Stand By Assist/Supervision Comments: He is working with occupational therapy. He is modified independent for ADLs requiring supervision with transfers at times. He prefers depression transfers to the sliding board. - Goals Physical Therapy Goals: 06/29/17: 1. Progress from SBA to mod I for transfers. 2. Increase R knee and hip extension ROM. 3. Decrase use of pillow under R knee as well as increase time laying supine in bed. Occupational Therapy Goals: 06/29 Goals: 1.) D/c planning - Barriers to Discharge Barriers to Attaining Goals: Weakness, Pain Control, Other (safety concerns regarding his strength) - Care Plan Anticipated Length of Stay (days): 6 Anticipated DC Destination: Home, Self Care, Home Health Service I have led this team conference and agree with the plan.
[2017-06-29] MEDS: INSULIN ASPART 100unit/ml INJECTION SQ SCH (17:44)
[2017-06-29] MEDS: INSULIN DETEMIR 100unit/ml INJECTION SQ SCH (22:23)
[2017-06-29] MEDS: LISINOPRIL 5 MG TABLET PO SCH (22:24)
[2017-06-29] MEDS: MELATONIN 1 MG TABLET PO SCH (22:24)
[2017-06-29] MEDS: MIRTAZAPINE 15 MG TABLET PO SCH (22:24)
[2017-06-29] MEDS: PRAVASTATIN 20 MG TABLET PO SCH (22:26)
[2017-06-29] MEDS: ZOLPIDEM 5 MG TABLET PO PRN (22:27)
[2017-06-30] MEDS: OMEPRAZOLE 20 MG CAPSULE PO SCH (05:53)
[2017-06-30] MEDS ORDERED: INSULIN ASPART 100unit/ml INJECTION SQ SCH (07:45)
--- NOTE | 2017-06-30 07:48 | Endocrinology Progress Note ---
Subjective Principal diagnosis: Type 2 diabetes mellitus, uncontrolled Interval history: Reports phantom limb pain. Had some late morning hypoglycemia yesterday (42), but has done fine since. Remains in good spirits. Exam Vital signs: Temperature 98.1 F 06/29/17 20:29 Pulse Rate 97 06/29/17 20:29 Respiratory Rate 20 06/29/17 20:29 Blood Pressure 128/65 06/29/17 20:29 Pulse Oximetry 97 06/29/17 20:29 - Constitutional no acute distress, well developed, thin - Routine HEENT Exam Head: Present: normocephalic, atraumatic Eye: Present: PERRL ENT: Present: mucous membranes moist - Routine Neck Exam Absent: thyromegaly - Routine Respiratory Exam Absent: dyspnea - Routine Cardiovascular Exam Present: RRR - Routine Abdominal Exam Present: normoactive bowel sounds - Routine Extremities Exam Present: amputation (bliateral BKA) - Routine Skin Exam Present: dry, warm - Routine Neurological Exam Present: alert, oriented X3, moving all extremities - Routine Psychiatric Exam Present: normal affect, normal thought process, good insight - Additional findings Additional findings: Laboratory Tests 06/29/17 06/29/17 06/29/17 09:56 11:26 11:41 Glucometer 122 42 57 06/29/17 06/29/17 06/29/17 11:56 13:03 13:53 Glucometer 78 119 115 06/29/17 06/30/17 20:09 05:39 Glucometer 126 115 Assessment and Plan (1) long-term current use of insulin Current visit: Yes Status: Chronic (2) Type 2 diabetes mellitus, uncontrolled Current visit: Yes Status: Chronic Give 2 units less breakfast Novolog this morning.
[2017-06-30] MEDS: FERROUS SULFATE 324 MG TABLET PO SCH (08:47)
[2017-06-30] MEDS: SENNA + DOCUSATE TABLET PO SCH ×2 (08:47→21:57)
[2017-06-30] MEDS: CLOPIDOGREL 75 MG TABLET PO SCH (08:47)
[2017-06-30] MEDS: NICOTINE 21 MG PATCH TD SCH (08:47)
[2017-06-30] MEDS: ENOXAPARIN 40 MG/0.4 ML INJECTION SQ SCH (08:50)
[2017-06-30] MEDS: NICOTINE PATCH REMOVAL TD SCH (08:50)
--- NOTE | 2017-06-30 09:40 | IRU Progress Note ---
- Subjective/Serverity of Illness Marco states that he is doing fairly well overall. His muscle cramping has improved in terms of intensity and frequency. He is getting some phantom pain in the right stump. He awakened with a deep ache in the stump which has improved. States that his bowels are still sluggish but he is having occasional bowel movement. His appetite is good. Last low blood sugar was yesterday late morning at 42. Dr. Velazquez has seen and has adjusted his morning. Update on medical issues we are actively managing/monitorin. Bilateral below the knee amputations with the most recent one being on the right side. Phantom pain noted. No evidence of infection. 2. Recent wound infection: Does not have any fever and no evidence of ongoing infection. He is off antibiotics. 3. Diabetes mellitus type 2 on insulin, not controlled. He has had reduced insulin requirements in view of his increased activity, less stress and lack of infection. Dr. Velazquez is closely monitoring and has adjusted his mealtime insulin. 3. Atherosclerotic peripheral vascular arterial disease. This appears to be stable at present. 4. Chronic tobacco use. I discussed this with Cedric at length today. He says that everyone in his family smokes. I asked him if he had made a decision to discontinue and he states he will "try to stop." He indicated to me that he has not made a full decision to discontinue tobacco use. We discussed various options and I urged him to make that decision. 5. Diabetic peripheral neuropathy: He is tolerating therapy well, despite the neuropathy in the upper extremities. 6. He complains of significant insomnia. He states he is sleeping better at the present time. Current pain management appears to be improved. 7. Diffuse muscle cramping: As noted above his cramping which is mainly now in the neck area has improved significantly. Exam Vital Signs: Temperature 97.8 F 06/30/17 08:00 Pulse Rate 81 06/30/17 08:00 Respiratory Rate 12 06/30/17 08:00 Blood Pressure 151/74 H 06/30/17 08:00 Pulse Oximetry 98 06/30/17 08:00 Height/Weight/BMI: Height 1.6 m Weight 109.4 kg Body Mass Index 28.4 Comments: The patient is awake, alert and oriented and in no acute distress. Pupils are equal. The neck is supple. Chest: Clear to auscultation bilaterally. Cor: RR with no gallop, click nor murmur Abd: soft with normo-active bowel sounds. There are no masses, no tenderness and no guarding. Extremities: Did not remove the dressings from the stumps today. Results IRU - Labs Labs: Reviewed Dr. Velazquez's note as well as sugars, vital signs, etc. IRU A/P (1) S/P bilateral BKA (below knee amputation) Current visit: Yes Status: Acute He is having some phantom pains. He reports Percocet is working better than the plain oxycodone. No evidence of ongoing infection. (2) Diabetic peripheral neuropathy associated with type 2 diabetes mellitus Problem details: Slightly improved Current visit: No Status: Chronic (3) Type 2 diabetes mellitus, uncontrolled Qualifiers: Diabetes mellitus complication status: with circulatory complication Diabetes mellitus complication detail: with other circulatory complications Diabetes mellitus roasterman insulin use: with prison use Qualified Code(s) : E11.59 - Type 2 diabetes mellitus with other circulatory complications; E11.65 - Type 2 diabetes mellitus with hyperglycemia; E11.65 - Type 2 diabetes mellitus with hyperglycemia; E11.65 - Type 2 diabetes mellitus with hyperglycemia; E11.65 - Type 2 diabetes mellitus with hyperglycemia; Z79.4 - tank terminal gauger (current) use of insulin; Z79.4 - longterm (current) use of insulin; Z79.4 - longterm (current) use of insulin; Z79.4 - longterm (current) use of insulin Current visit: Yes Status: Chronic Had a low blood sugar late morning. Dr. Velazquez has adjusted insulin. (4) Muscle spasm Current visit: Yes Status: Acute His muscle spasms have improved. DVT Prophylaxis: Lovenox Resuscitation Status: Full Code - Course Hospital Course: Cedric Diego MD: 06/27/17 11:07 Cedric is settling into the rehabilitation routine. Had hypoglycemia over the weekend. Dr. Velazquez has adjusted insulin. Pain control is an issue. He remains on Oxycodone IR. 06/27/17 11:08 06/28/17 10:37 Complains of spasms of neck muscles and left groin. Tried Flexeril but this made him too sleepy. We will rely on local modalities. Blood sugars noted. He was a bit low after lunch yesterday and Dr. Velazquez has reduced his insulin dose. Reports episodes where he sees someone out of the corner of his eye in the hallway and then they are not there. Not certain if this is related to oxycodone or just normal situation. 06/29/17 11:46 Has better pain control with Percocet compared oxycodone IR. Slept better last night. Progressing with therapy. Less sleepy during the daytime as we stopped Flexeril. Blood sugars reviewed and are variable. 06/30/17 09:41 Getting some phantom pains in the right stump. No sign of infection. Pain is better controlled at present. Blood sugars a bit low late morning with insulin now adjusted. - Interventions to Obtain Goals PT Treatment Plan: Balance/Proprioception, Functional Activities, Manual Therapy , Patient/Family Education, Therapeutic Exercise OT Treatment Plan: ADL (Basic Care), Balance Training, Pt./Family Education Goals Progress/Modifications: Time spent with patient and on floor reviewing data and documentin min Barriers to dismissal: pain, endurance Medical decision-making: I have reviewed his activity level in conjunction with the blood sugars. He appears to tolerate therapy well. Blood sugars are being controlled well at the present time with the last low blood sugar being late morning yesterday. Morning insulin has been adjusted. His muscle cramping is improved. Continues to have some constipation but his bowels are moving. He denies any chest pain or shortness of breath. Splenic considerable time with him today discussing tobacco cessation and encouraged him to pursue that.
[2017-06-30] MEDS: INSULIN ASPART 100unit/ml INJECTION SQ SCH ×2 (11:19→18:23)
[2017-06-30] MEDS: OXYCODONE/APAP 7.5 MG/325 MG TABLET PO PRN ×2 (18:04→21:58)
[2017-06-30] MEDS ORDERED: INSULIN ASPART 100unit/ml INJECTION SQ ONE ×2 (18:22→19:45)
[2017-06-30] MEDS: INSULIN DETEMIR 100unit/ml INJECTION SQ SCH (21:52)
[2017-06-30] MEDS: MIRTAZAPINE 15 MG TABLET PO SCH (21:55)
[2017-06-30] MEDS: LISINOPRIL 5 MG TABLET PO SCH (21:55)
[2017-06-30] MEDS: MELATONIN 1 MG TABLET PO SCH (21:55)
[2017-06-30] MEDS: PRAVASTATIN 20 MG TABLET PO SCH (21:56)
[2017-06-30] MEDS: ZOLPIDEM 5 MG TABLET PO PRN (21:57)
[2017-06-30] MEDS: SALINE FLUSH 10ml SYRINGE IV PRN (22:00)
[2017-07-01] MEDS: OMEPRAZOLE 20 MG CAPSULE PO SCH (06:43)
[2017-07-01] MEDS: ENOXAPARIN 40 MG/0.4 ML INJECTION SQ SCH (08:49)
[2017-07-01] MEDS: POLYETHYL GLYCOL 3350 17gm PACKET PO PRN (08:49)
[2017-07-01] MEDS: FERROUS SULFATE 324 MG TABLET PO SCH (08:50)
[2017-07-01] MEDS: CLOPIDOGREL 75 MG TABLET PO SCH (08:50)
[2017-07-01] MEDS: NICOTINE 21 MG PATCH TD SCH (08:50)
[2017-07-01] MEDS: SENNA + DOCUSATE TABLET PO SCH ×2 (08:52→20:08)
[2017-07-01] MEDS: NICOTINE PATCH REMOVAL TD SCH (08:52)
[2017-07-01] MEDS: INSULIN ASPART 100unit/ml INJECTION SQ SCH ×3 (09:50→18:11)
[2017-07-01] MEDS: OXYCODONE/APAP 7.5 MG/325 MG TABLET PO PRN ×3 (09:58→20:06)
[2017-07-01] MEDS: INSULIN DETEMIR 100unit/ml INJECTION SQ SCH (20:06)
[2017-07-01] MEDS: MIRTAZAPINE 15 MG TABLET PO SCH (20:07)
[2017-07-01] MEDS: LISINOPRIL 5 MG TABLET PO SCH (20:08)
[2017-07-01] MEDS: MELATONIN 1 MG TABLET PO SCH (20:08)
[2017-07-01] MEDS: PRAVASTATIN 20 MG TABLET PO SCH (20:14)
[2017-07-02] MEDS: OMEPRAZOLE 20 MG CAPSULE PO SCH (06:29)
[2017-07-02] MEDS: SENNA + DOCUSATE TABLET PO SCH ×2 (09:13→20:42)
[2017-07-02] MEDS: CLOPIDOGREL 75 MG TABLET PO SCH (09:13)
[2017-07-02] MEDS: POLYETHYL GLYCOL 3350 17gm PACKET PO PRN (09:14)
[2017-07-02] MEDS: FERROUS SULFATE 324 MG TABLET PO SCH (09:14)
[2017-07-02] MEDS: NICOTINE 21 MG PATCH TD SCH (09:14)
[2017-07-02] MEDS: ENOXAPARIN 40 MG/0.4 ML INJECTION SQ SCH (09:14)
[2017-07-02] MEDS: NICOTINE PATCH REMOVAL TD SCH (09:21)
[2017-07-02] MEDS: INSULIN ASPART 100unit/ml INJECTION SQ SCH ×4 (09:40→18:30)
--- NOTE | 2017-07-02 11:31 | Progress Note ---
- Date 07/02/17 Subjective: Mr Bazzi is seen today in follow up while napping in bed. He report he is tired today and enjoying "being lazy". He denies having any new problems, pain or shortness of breath. He reports right stump continues to have some swelling however no erythema. Mild pos-op pain that is well controlled. Noted to have some hypoglycemia this morning in the 60's- patient was asymptomatic. Objective Vital signs: Temperature 97.6 F 07/02/17 07:38 Pulse Rate 82 07/02/17 07:38 Respiratory Rate 16 07/02/17 07:38 Blood Pressure 124/60 07/02/17 07:38 Pulse Oximetry 95 07/02/17 07:38 Height/Weight/BMI: Height 1.6 m Weight 105.2 kg Body Mass Index 28.4 - Constitutional Present: no acute distress, well nourished, well developed - Routine HEENT Exam Eye: Present: EOMI ENT: Present: mucous membranes moist, dentition normal - Routine Respiratory Exam Present: CTA bilaterally. Absent: wheezes - Routine Cardiovascular Exam Present: RRR, S1, S2. Absent: murmur - Routine Abdominal Exam Present: soft, normoactive bowel sounds, non distended. 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 Status post right below knee amputation on 06/21 Recent sepsis with diabetic foot ulcer Diabetes Peripheral neuropathy Hypertension Insomnia Depression Plan Dr Velazquez contacted this Morning and decreased insulin. Currently on Novolog 10 units with breakfast, 11 units with lunch, 17 units with supper. He is also on Levimir 46 units at HS. 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 Overall doing well Continue to work with PT/OT for strengthening Hospital Course Summary Disclaimer: The visit summary below is not to be considered part of the above Progress Note. Hospital Course: 06/24/17 Impression Bilateral below the knee amputations. Status post right below knee amputation on 06/21 Recent sepsis with diabetic foot ulcer Diabetes Peripheral neuropathy Hypertension Insomnia Depression Plan Agree with admission to inpatient rehabilitation the care of Dr. Diego for ongoing strengthening of his bilateral thigh muscles. In addition to learning how to safely transfer. Patient is currently on vancomycin for treatment of recent sepsis and right diabetic foot wound. Pathology from amputation is pending. Once this has been resulted. It is hopeful we can discontinue vancomycin. We will continue to work on blood sugar control. Appreciate consultation by Dr. Velazquez. Patient did have several low blood sugars this morning in the 50s. Currently on NovoLog 19 units with breakfast and supper, 17 units with lunch and 46 units of Levemir at at bedtime. Home medications reviewed. Lisinopril increased to 5 mg daily. 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 Appreciate medical consultation, the hospital service will continue to follow patient medically manage his existing comorbidities. At time of discharge medical care will return to his primary care provider, Dr. Mo 06/29/17 Plan Will change Ambien to PRN rather than scheduled. Also has scheduled Melatonin. Vancomycin discontinued following review of pathology report. Continue Lisinopril at 5 mg due to persistent hypertension. Lovenox subcutaneous daily for DVT prophylaxis Appreciate consultation by Dr. Velazquez for recommendations regarding glycemic control. Continue to encourage work with PT and OT for ongoing strengthening
[2017-07-02] MEDS: OXYCODONE/APAP 7.5 MG/325 MG TABLET PO PRN ×2 (16:52→21:29)
[2017-07-02] MEDS: MIRTAZAPINE 15 MG TABLET PO SCH (20:42)
[2017-07-02] MEDS: PRAVASTATIN 20 MG TABLET PO SCH (20:42)
[2017-07-02] MEDS: MELATONIN 1 MG TABLET PO SCH (20:42)
[2017-07-02] MEDS: LISINOPRIL 5 MG TABLET PO SCH (20:43)
[2017-07-02] MEDS: INSULIN DETEMIR 100unit/ml INJECTION SQ SCH (21:35)
[2017-07-03] MEDS: OMEPRAZOLE 20 MG CAPSULE PO SCH (06:35)
[2017-07-03] MEDS: INSULIN ASPART 100unit/ml INJECTION SQ SCH ×3 (08:49→18:11)
[2017-07-03] MEDS: ENOXAPARIN 40 MG/0.4 ML INJECTION SQ SCH (08:50)
[2017-07-03] MEDS: CLOPIDOGREL 75 MG TABLET PO SCH (08:50)
[2017-07-03] MEDS: NICOTINE PATCH REMOVAL TD SCH (08:50)
[2017-07-03] MEDS: NICOTINE 21 MG PATCH TD SCH (08:50)
[2017-07-03] MEDS: SENNA + DOCUSATE TABLET PO SCH ×2 (08:51→21:01)
[2017-07-03] MEDS: FERROUS SULFATE 324 MG TABLET PO SCH (08:51)
--- NOTE | 2017-07-03 10:41 | Progress Note ---
<Ruthie Geronimo - Last Filed: 07/03/17 10:38> - Date 07/03/17 Subjective: Cedric is seen today in follow up for his recent BKA and diabetes. He is seen in the dining room, immediately following his breakfast. He reports that he is feeling good overall, but does admit to continued phantom pains to his right stub. He denies any concerns about infection and states that his stub continues to shrink. His pain is well controlled. Therapy is going well and he is ready for discharge home, hopefully this week, 07/05. His appetite is good and his bowels are moving. Review of his reveals variable blood sugars ranging from low of 49 to high of 254. Dr. Velazquez, who is managing his diabetes, was notified and decreased his evening Levemir to 42 units from 46 units. Cedric denies any symptoms with hypoglycemia. Blood pressure remains elevated at times. Objective Vital signs: Temperature 97.8 F 07/03/17 00:00 Pulse Rate 98 07/03/17 00:00 Respiratory Rate 16 07/03/17 00:00 Blood Pressure 128/67 07/03/17 00:00 Pulse Oximetry 97 07/03/17 00:00 Height/Weight/BMI: Height 5 ft 3 in Weight 231 lb 14.821 oz Body Mass Index 28.4 Comments: Patient seen while sitting in the dining room, having just finished breakfast; good spirits. - Constitutional Present: no acute distress, well nourished, well developed, cooperative - Routine HEENT Exam Head: Present: normocephalic, atraumatic Eye: Present: PERRL. Absent: conjunctival icterus ENT: Present: mucous membranes moist - Routine Respiratory Exam Present: CTA bilaterally. Absent: rhonchi, stridor, wheezes, crackles - Routine Cardiovascular Exam Present: RRR, S1, S2 - Routine Abdominal Exam Present: soft, normoactive bowel sounds, non tender - Routine Extremities Exam Present: pulses intact (radial 2+ bilaterally) Comments: bilateral BTK amputations. - Routine Back/Spine/Pelvis Exam Back/Spine: Present: full ROM. Absent: vertebral tenderness - Routine Musculoskeletal Exam Musculoskeletal: Present: moving extremities well - Routine Skin Exam Present: dry, warm. Absent: jaundice Comments: afebrile - Routine Neurological Exam Present: alert, oriented X3, moving all extremities, normal speech - Routine Lymphatic Exam Lymphatic: Absent: lymphedema - Routine Psychiatric Exam Present: normal affect, cooperative, good insight, good judgment Results - Labs CBC & Chem 7: 06/29/17 04:11 06/29/17 04:11 Assessment and Plan (1) S/P bilateral BKA (below knee amputation) Current visit: Yes Status: Acute Assessment and Plan: Impression Bilateral below the knee amputations. Status post right below knee amputation on 06/21 Recent sepsis with diabetic foot ulcer Diabetes Peripheral neuropathy Hypertension Insomnia Depression Plan - 07/03/17 (Mirakian) Overall, Cedric is doing well and states that he feels like he is getting stronger and is eager for discharge. Hopeful discharge home on 07/05. Continue to encourage participation in therapies and pain control. Continues to have phantom pain to right stump, though states pain is well controlled. Continue with bowel motivation. Bowels are moving and appetite is good. Blood sugars variable with high at 254 and low at49. He denies any symptoms with hypoglycemia. Dr. Velazquez contacted and decreased evening levemir to 42 units (decreased from 46 units). Continue with Novolog 10 units ACB, 11 units ACL and 17 units ACS. Continue to monitor closely. Appreciate Dr. Velazquez's time and expertise. Blood pressure continues to be elevated. Currently on prinivil 5mg QHS. Will start Norvasc 5mg QAM today and continue to monitor. Labs on 06/29 revealed increased in SCr to 1.5, which is around base line. Will check CBC and BMP now to monitor blood counts, electrolytes and renal function. Continue prinivil 5mg. If SCr continues to elevate, may need to decrease prinivil back to home dose of 2.5 and consider addition of beta-shama (metoprolol 25mg BID). Overall, doing well and anticipate discharge in near future. DVT Prophylaxis: Lovenox GI Prophylaxis: other (Prilosec) Resuscitation Status: Full Code - Time spent with patient Time with patient PN: 25 minutes Hospital Course Summary Disclaimer: The visit summary below is not to be considered part of the above Progress Note. Hospital Course: 06/24/17 Impression Bilateral below the knee amputations. Status post right below knee amputation on 06/21 Recent sepsis with diabetic foot ulcer Diabetes Peripheral neuropathy Hypertension Insomnia Depression Plan Agree with admission to inpatient rehabilitation the care of Dr. Diego for ongoing strengthening of his bilateral thigh muscles. In addition to learning how to safely transfer. Patient is currently on vancomycin for treatment of recent sepsis and right diabetic foot wound. Pathology from amputation is pending. Once this has been resulted. It is hopeful we can discontinue vancomycin. We will continue to work on blood sugar control. Appreciate consultation by Dr. Velazquez. Patient did have several low blood sugars this morning in the 50s. Currently on NovoLog 19 units with breakfast and supper, 17 units with lunch and 46 units of Levemir at at bedtime. Home medications reviewed. Lisinopril increased to 5 mg daily. May need to consider 2nd agent for better blood pressure control, will continue to monitor Oxycodone for pain control Ambien to use for insomnia Lovenox SQ daily for prophylaxis Encourage work with PT and OT for ongoing strengthening Backand saw patient yesterday for placement of stump associate buyer. Appreciate medical consultation, the hospital service will continue to follow patient medically manage his existing comorbidities. At time of discharge medical care will return to his primary care provider, Dr. Mo 06/29/17 Plan Will change Ambien to PRN rather than scheduled. Also has scheduled Melatonin. Vancomycin discontinued following review of pathology report. Continue Lisinopril at 5 mg due to persistent hypertension. Lovenox subcutaneous daily for DVT prophylaxis Appreciate consultation by Dr. Velazquez for recommendations regarding glycemic control. Continue to encourage work with PT and OT for ongoing strengthening Plan - 07/03/17 (Mirakian) Overall, Cedric is doing well and states that he feels like he is getting stronger and is eager for discharge. Hopeful discharge home on 07/05. Continue to encourage participation in therapies and pain control. Continues to have phantom pain to right stump, though states pain is well controlled. Continue with bowel motivation. Bowels are moving and appetite is good. Blood sugars variable with high at 254 and low at49. He denies any symptoms with hypoglycemia. Dr. Velazquez contacted and decreased evening levemir to 42 units (decreased from 46 units). Continue with Novolog 10 units ACB, 11 units ACL and 17 units ACS. Continue to monitor closely. Appreciate Dr. Velazquez's time and expertise. Blood pressure continues to be elevated. Currently on prinivil 5mg QHS. Will start Norvasc 5mg QAM today and continue to monitor. Labs on 06/29 revealed increased in SCr to 1.5, which is around base line. Will check CBC and BMP now to monitor blood counts, electrolytes and renal function. Continue prinivil 5mg. If SCr continues to elevate, may need to decrease prinivil back to home dose of 2.5 and consider addition of beta-shama (metoprolol 25mg BID). Overall, doing well and anticipate discharge in near future. <Lucita Lutz D - Last Filed: 07/03/17 12:51> - Date 07/03/17 Objective Vital signs: Temperature 97.6 F 07/03/17 08:00 Pulse Rate 87 07/03/17 08:00 Respiratory Rate 20 07/03/17 08:00 Blood Pressure 128/67 07/03/17 08:00 Pulse Oximetry 100 07/03/17 08:00 Height/Weight/BMI: Height 1.6 m Weight 105.2 kg Body Mass Index 28.4 Results - Labs CBC & Chem 7: 07/03/17 11:40 07/03/17 11:40 Assessment and Plan (1) S/P bilateral BKA (below knee amputation) Current visit: Yes Status: Acute Assessment and Plan: Bolivar COOPER 07/03/17 Bazzi was discussed with Ruthie WOOTEN. Labs, vital signs, medications and prior notes all reviewed. We discussed the above-mentioned medication changes. We will continue to follow his labs. We will follow his blood pressures clinically. I agree with the PA assessment and plan Hospital Course Summary Disclaimer: The visit summary below is not to be considered part of the above Progress Note.
[2017-07-03] MEDS: AMLODIPINE 5 MG TABLET PO SCH (12:51)
[2017-07-03] MEDS ORDERED: FALL RISK - PHARMACY CONSULT XX ONE (14:45)
[2017-07-03] MEDS: OXYCODONE/APAP 7.5 MG/325 MG TABLET PO PRN ×2 (15:03→21:01)
[2017-07-03] MEDS: MELATONIN 1 MG TABLET PO SCH (20:59)
[2017-07-03] MEDS: LISINOPRIL 5 MG TABLET PO SCH (20:59)
[2017-07-03] MEDS: MIRTAZAPINE 15 MG TABLET PO SCH (21:00)
[2017-07-03] MEDS: PRAVASTATIN 20 MG TABLET PO SCH (21:01)
[2017-07-03] MEDS: INSULIN DETEMIR 100unit/ml INJECTION SQ SCH (21:03)
[2017-07-04] MEDS: SALINE FLUSH 10ml SYRINGE IV PRN (00:38)
[2017-07-04] MEDS: OMEPRAZOLE 20 MG CAPSULE PO SCH (05:42)
--- NOTE | 2017-07-04 07:39 | Endocrinology Progress Note ---
Subjective Principal diagnosis: Type 2 diabetes mellitus, uncontrolled Interval history: Insulin was titrated down over past 3 days. Past 24 hours have shown fairly good control. Exam Vital signs: Temperature 97.1 F 07/04/17 00:00 Pulse Rate 106 H 07/04/17 00:00 Respiratory Rate 16 07/04/17 00:00 Blood Pressure 141/65 H 07/04/17 00:00 Pulse Oximetry 99 07/04/17 00:00 - Constitutional no acute distress, well developed, thin - Routine HEENT Exam Head: Present: normocephalic, atraumatic Eye: Present: PERRL ENT: Present: mucous membranes moist - Routine Neck Exam Absent: thyromegaly - Routine Respiratory Exam Absent: dyspnea - Routine Cardiovascular Exam Present: RRR - Routine Abdominal Exam Present: normoactive bowel sounds - Routine Extremities Exam Comments: Bilateral BKA. - Routine Skin Exam Present: dry, warm - Routine Neurological Exam Present: alert, oriented X3, moving all extremities - Routine Psychiatric Exam Present: normal affect, normal thought process, good insight - Additional findings Additional findings: Laboratory Tests 07/03/17 07/03/17 07/03/17 10:52 14:09 18:09 Glucometer 126 150 203 07/03/17 07/04/17 20:36 05:41 Glucometer 155 131 Assessment and Plan (1) custodial current use of insulin Current visit: Yes Status: Chronic (2) Type 2 diabetes mellitus, uncontrolled Current visit: Yes Status: Chronic Fair control. No changes needed.
[2017-07-04] MEDS: INSULIN ASPART 100unit/ml INJECTION SQ SCH ×3 (08:31→18:07)
[2017-07-04] MEDS: NICOTINE 21 MG PATCH TD SCH (08:32)
[2017-07-04] MEDS: CLOPIDOGREL 75 MG TABLET PO SCH (08:33)
[2017-07-04] MEDS: NICOTINE PATCH REMOVAL TD SCH (08:33)
[2017-07-04] MEDS: FERROUS SULFATE 324 MG TABLET PO SCH (08:33)
[2017-07-04] MEDS: AMLODIPINE 5 MG TABLET PO SCH (08:33)
[2017-07-04] MEDS: OXYCODONE/APAP 7.5 MG/325 MG TABLET PO PRN ×3 (08:36→18:14)
[2017-07-04] MEDS: SENNA + DOCUSATE TABLET PO SCH ×2 (08:39→21:56)
--- NOTE | 2017-07-04 11:22 | IRU Progress Note ---
- Subjective/Serverity of Illness Marco was evaluated in his room on the inpatient rehabilitation unit. He is doing well with therapy. Sugars got a little lower leg last week. Dr. Velazquez is managing these. Insulin was titrated down and is done better since then. He has had no nausea nor vomiting. He denies any shortness of breath. He denies any chest pain. Reports bowels are moving. He reports that the pain in the right stump is being adequately controlled with the Percocet. Exam Vital Signs: Temperature 96.3 F L 07/04/17 08:00 Pulse Rate 100 07/04/17 08:00 Respiratory Rate 16 07/04/17 08:00 Blood Pressure 124/66 07/04/17 08:00 Pulse Oximetry 98 07/04/17 08:00 Height/Weight/BMI: Height 1.6 m Weight 105.2 kg Body Mass Index 28.4 Comments: The patient is awake, alert and oriented and in no acute distress. Pupils are equal. The neck is supple. Chest: Clear to auscultation bilaterally. Cor: RR with no gallop, click nor murmur Abd: soft with normo-active bowel sounds. There are no masses, no tenderness and no guarding. Extremities: S/P bilat BKA IRU A/P (1) S/P bilateral BKA (below knee amputation) Current visit: Yes Status: Acute Continues to improve with therapy. Working on transfers etc. 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 Qualified Code(s) : E11.59 - Type 2 diabetes mellitus with other circulatory complications; E11.65 - Type 2 diabetes mellitus with hyperglycemia; E11.65 - Type 2 diabetes mellitus with hyperglycemia; E11.65 - Type 2 diabetes mellitus with hyperglycemia; E11.65 - Type 2 diabetes mellitus with hyperglycemia; Z79.4 - [facility] (current) use of insulin; Z79.4 - [facility] (current) use of insulin; Z79.4 - [facility] (current) use of insulin; 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 (4) Muscle spasm Current visit: Yes Status: Acute DVT Prophylaxis: Lovenox Resuscitation Status: Full Code - Course Hospital Course: Cedric Diego MD: 06/27/17 11:07 Cedric is settling into the rehabilitation routine. Had hypoglycemia over the weekend. Dr. Velazquez has adjusted insulin. Pain control is an issue. He remains on Oxycodone IR. 06/27/17 11:08 06/28/17 10:37 Complains of spasms of neck muscles and left groin. Tried Flexeril but this made him too sleepy. We will rely on local modalities. Blood sugars noted. He was a bit low after lunch yesterday and Dr. Velazquez has reduced his insulin dose. Reports episodes where he sees someone out of the corner of his eye in the hallway and then they are not there. Not certain if this is related to oxycodone or just normal situation. 06/29/17 11:46 Has better pain control with Percocet compared oxycodone IR. Slept better last night. Progressing with therapy. Less sleepy during the daytime as we stopped Flexeril. Blood sugars reviewed and are variable. 06/30/17 09:41 Getting some phantom pains in the right stump. No sign of infection. Pain is better controlled at present. Blood sugars a bit low late morning with insulin now adjusted. 07/04/17 11:21 Improving with therapy. No evidence of infection. Pain management adequate. Insulin is titrated downward by Dr. Velazquez and sugars are better. - Interventions to Obtain Goals PT Treatment Plan: Balance/Proprioception, Functional Activities, Manual Therapy , Patient/Family Education, Therapeutic Exercise OT Treatment Plan: ADL (Basic Care), Balance Training, Pt./Family Education
[2017-07-04] MEDS: ENOXAPARIN 40 MG/0.4 ML INJECTION SQ SCH (11:48)
[2017-07-04] MEDS: INSULIN DETEMIR 100unit/ml INJECTION SQ SCH (21:55)
[2017-07-04] MEDS: MELATONIN 1 MG TABLET PO SCH (21:56)
[2017-07-04] MEDS: PRAVASTATIN 20 MG TABLET PO SCH (21:57)
[2017-07-04] MEDS: MIRTAZAPINE 15 MG TABLET PO SCH (21:57)
[2017-07-04] MEDS: LISINOPRIL 5 MG TABLET PO SCH (21:57)
[2017-07-05 02:08] VITALS: O2SAT 97
[2017-07-05] MEDS: OMEPRAZOLE 20 MG CAPSULE PO SCH (06:28)
--- NOTE | 2017-07-05 07:32 | Endocrinology Progress Note ---
Subjective Principal diagnosis: Type 2 diabetes mellitus, uncontrolled Interval history: No problems over past 24 hours. Doing well with PT. No hypoglycemia. Exam Vital signs: Temperature 97.3 F 07/05/17 00:00 Pulse Rate 95 07/05/17 00:00 Respiratory Rate 20 07/05/17 00:00 Blood Pressure 131/68 07/05/17 00:00 Pulse Oximetry 97 07/05/17 00:00 - Constitutional no acute distress, well developed, thin - Routine HEENT Exam Head: Present: normocephalic, atraumatic Eye: Present: PERRL ENT: Present: mucous membranes moist - Routine Neck Exam Absent: thyromegaly - Routine Respiratory Exam Absent: dyspnea - Routine Cardiovascular Exam Present: RRR - Routine Abdominal Exam Present: normoactive bowel sounds - Routine Extremities Exam Comments: Bilateral BKA. 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 Could use slightly more basal insulin. Will increase to 44 units tonight.
[2017-07-05] MEDS ORDERED: INSULIN DETEMIR 100unit/ml INJECTION SQ SCH (07:34)
[2017-07-05 08:38] VITALS: BP 118/59; PULSE 94; RESP 16; TEMP 98.1
[2017-07-05] MEDS: FERROUS SULFATE 324 MG TABLET PO SCH (08:42)
[2017-07-05] MEDS: INSULIN ASPART 100unit/ml INJECTION SQ SCH ×2 (08:42→12:52)
[2017-07-05] MEDS: AMLODIPINE 5 MG TABLET PO SCH (08:43)
[2017-07-05] MEDS: CLOPIDOGREL 75 MG TABLET PO SCH (08:43)
[2017-07-05] MEDS: ENOXAPARIN 40 MG/0.4 ML INJECTION SQ SCH (08:43)
[2017-07-05] MEDS: NICOTINE 21 MG PATCH TD SCH (08:43)
[2017-07-05] MEDS: SENNA + DOCUSATE TABLET PO SCH (08:44)
[2017-07-05] MEDS: NICOTINE PATCH REMOVAL TD SCH (08:44)
--- NOTE | 2017-07-05 10:41 | IRU Progress Note ---
- Subjective/Serverity of Illness Mr. Bazzi was interviewed and examined in his room. He continues to report pain in the stomach but it is much better controlled with the Percocet. He is anticipating no major problems when he goes home. He does not have any fever. His appetite is good and would like to eat more. He is been seen by Dr. Velazquez. No further hypoglycemic episodes have been reported. Basal insulin increased to 44 units tonight. Exam Vital Signs: Temperature 98.1 F 07/05/17 08:00 Pulse Rate 94 07/05/17 08:00 Respiratory Rate 16 07/05/17 08:00 Blood Pressure 118/59 07/05/17 08:00 Pulse Oximetry 97 07/05/17 08:00 Height/Weight/BMI: Height 1.6 m Weight 105.2 kg Body Mass Index 28.4 Comments: The patient is awake, alert and oriented and in no acute distress. Pupils are equal. The neck is supple. Chest: Clear to auscultation bilaterally. Cor: RR with no gallop, click nor murmur Abd: soft with normo-active bowel sounds. There are no masses, no tenderness and no guarding. Extremities: No evidence of active infection at present. Wound was inspected. Stitches remain in place. Minimal redness. No evidence of active inflammation nor discharge. Results IRU - Labs Labs: Review blood sugars. IRU A/P (1) S/P bilateral BKA (below knee amputation) Current visit: Yes Status: Acute Wound is inspected. We will check with Dr. James's office to see what wound care is needed at home and we will instruct the patient in that. 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 Was seen as well with Dr. Velazquez. He will be sent home on the current insulin dose which is NovoLog 10 in the morning, 11 at noon , 17 with evening meal and basal insulin which is Lantus is 44 units. (4) Muscle spasm Current visit: Yes Status: Acute DVT Prophylaxis: Lovenox Resuscitation Status: Full Code - Course Hospital Course: Cedric Diego MD: 06/27/17 11:07 Cedric is settling into the rehabilitation routine. Had hypoglycemia over the weekend. Dr. Velazquez has adjusted insulin. Pain control is an issue. He remains on Oxycodone IR. 06/27/17 11:08 06/28/17 10:37 Complains of spasms of neck muscles and left groin. Tried Flexeril but this made him too sleepy. We will rely on local modalities. Blood sugars noted. He was a bit low after lunch yesterday and Dr. Velazquez has reduced his insulin dose. Reports episodes where he sees someone out of the corner of his eye in the hallway and then they are not there. Not certain if this is related to oxycodone or just normal situation. 06/29/17 11:46 Has better pain control with Percocet compared oxycodone IR. Slept better last night. Progressing with therapy. Less sleepy during the daytime as we stopped Flexeril. Blood sugars reviewed and are variable. 06/30/17 09:41 Getting some phantom pains in the right stump. No sign of infection. Pain is better controlled at present. Blood sugars a bit low late morning with insulin now adjusted. 07/04/17 11:21 Improving with therapy. No evidence of infection. Pain management adequate. Insulin is titrated downward by Dr. Velazquez and sugars are better. 07/05/17 10:43 Wound inspected and looks good. Blood sugars improved. Anticipate home today. - Interventions to Obtain Goals PT Treatment Plan: Balance/Proprioception, Functional Activities, Manual Therapy , Patient/Family Education, Therapeutic Exercise OT Treatment Plan: ADL (Basic Care), Balance Training, Pt./Family Education Goals Progress/Modifications: I contacted Dr. Velazquez's office to let him know that we are sending Marco home today. In addition we'll check with Dr. James to see what kind of dressing he wants at home and the patient will be instructed.
[2017-07-05] MEDS: OXYCODONE/APAP 7.5 MG/325 MG TABLET PO PRN (10:57)
[2017-07-05] MEDS ORDERED: NEOMYCIN/POLYMYXIN/BACITRACIN OINT PACKET TP ONE (14:01)
--- NOTE | 2017-07-05 14:19 | Discharge Summary ---
Discharge Information Date of admission: 06/23/17 11:50 Anticipated date of discharge: 07/05/17 Attending Physician: Cedric Diego MD Primary care physician: Andrea Mo II, MD Consults: 06/23/17 11:58 Dietary Consult [CONS] Routine Comment: Reason For Exam: Uncontrolled Type II DM Inpt Diabetic Consult [Inpatient Diabetic Consult] [CONS] Routine Diabetic Diagnosis: E11.65 Uncontrolled T2 DM Diabetic Training: Detect Complications Physician Consult [CONS] Routine Consulting Provider: Amilcar Velazquez Reason For Exam: uncontrolled type 2 dm Ordering Provider has Notified Firer Tunnel Kiln: Yes 06/23/17 12:18 Physician Consult [CONS] Routine Consulting Provider: Neha Chahal Reason For Exam: Medical Management Ordering Provider has Notified Firer Tunnel Kiln: No 06/23/17 15:37 Physician Consult [CONS] Routine Consulting Provider: Abdirashid James Reason For Exam: follow BKA wound Ordering Provider has Notified Firer Tunnel Kiln: No - Discharge Diagnosis (1) S/P bilateral BKA (below knee amputation) Status: Acute (2) Diabetic peripheral neuropathy associated with type 2 diabetes mellitus Status: Chronic (3) Type 2 diabetes mellitus, uncontrolled Status: Chronic (4) Muscle spasm Status: Acute 1. Status post right below the knee amputation, acute 2. Status post left below-knee amputation, remotely (therefore patient is status post bilateral [id number] amputations) 3. Diabetes mellitus type 2 on long-term insulin not controlled 4. Peripheral neuropathy secondary to diabetes mellitus 5. Tobacco dependence, chronic 6. Atherosclerotic peripheral vascular disease - Laboratory Labs: 07/03/17 11:40 07/03/17 11:40 History of Present Illness HPI: 07/05/17 14:14 Mr. Bazzi has a history of diabetes mellitus followed by Dr. Velazquez. He has had a progressive increase in his A1c values from 9.6% in January 2017 up to 11.2% presently. He developed a lesion apparently on the plantar surface of his right foot. This became more and more infected. He subsequently developed nausea and vomiting with shaking chills and sweats on 06/18/2017. He was seen in the wound clinic on June 20. The severe wound was noted and he was therefore directly admitted to the hospital to the acute care side. He was felt to have sepsis based on elevated lactate, leukocytosis and fever. Blood cultures were negative. Dr. James saw the patient and performed a right [id number]-rds-[id number] amputation on 02/2017. He remained on vancomycin through the time of his admission to the inpatient rehabilitation unit. He has a history of prior left below-knee amputation. He has been using a prosthesis on that side. It was felt that he would benefit greatly from a multidisciplinary approach to his management in view of his diabetes, risk for wound infection and inability to return home at this time. He was therefore admitted to the inpatient rehabilitation unit. Hospital Course This is a general summary of the patient's hospital course. For more details refer to the complete medical record. After his right jonnt-dok-ornv amputation was performed and he was stabilized, he was transferred to the acute inpatient rehabilitation unit. Dr. Velazquez continue to monitor his blood sugars. He did have some episodes of hypoglycemia. His insulin dose was reduced. He was sent home on a reduced dose of mealtime insulin and basal insulin as noted in the discharge medication list. He continued on vancomycin for a short time but that was discontinued on rehabilitation. He remained afebrile and had no further evidence of infection. He was also followed by the hospitalist service while on acute inpatient rehabilitation. He was seen by occupational therapy. Eating was independent at the beginning of therapy and at the conclusion. Grooming was initially standby assist upon admission and ultimately modified independent functioning. Bathing was initially standby assist and ultimately modified independent. Upper body dressing was modified independent initially and independent at the conclusion of therapy. Lower body dressing was initially standby assist and ultimately modified independent. Toileting assist was able to be performed at a modified independent level. He was able to perform sliding board transfers at a standby assistance level. Bed/chair/wheelchair transfers were ultimately performed at a modified independent level. He was seen by physical therapy. Sliding board transfers for them initially were contact-guard assistance and ultimately standby assistance. He was unsafe to do car transfers initially. Ultimately he was able to perform these at a modified independent level. Wheelchair propulsion was 154 feet at standby assistance level initially and 524 feet at modified independent level ultimately. He is being dismissed in improved and stable condition on 07/05/2017. His wound was inspected and shows no evidence of infection. He will be seen by Dr. James in about [address] Velazquez as well as his personal physician Dr. Mo. Hospital course: 06/24/17 Impression Bilateral below the knee amputations. Status post right below knee amputation on 06/21 Recent sepsis with diabetic foot ulcer Diabetes Peripheral neuropathy Hypertension Insomnia Depression Plan Agree with admission to inpatient rehabilitation the care of Dr. Diego for ongoing strengthening of his bilateral thigh muscles. In addition to learning how to safely transfer. Patient is currently on vancomycin for treatment of recent sepsis and right diabetic foot wound. Pathology from amputation is pending. Once this has been resulted. It is hopeful we can discontinue vancomycin. We will continue to work on blood sugar control. Appreciate consultation by Dr. Velazquez. Patient did have several low blood sugars this morning in the 50s. Currently on NovoLog 19 units with breakfast and supper, 17 units with lunch and 46 units of Levemir at at bedtime. Home medications reviewed. Lisinopril increased to 5 mg daily. 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 Appreciate medical consultation, the hospital service will continue to follow patient medically manage his existing comorbidities. At time of discharge medical care will return to his primary care provider, Dr. Mo 06/29/17 Plan Will change Ambien to PRN rather than scheduled. Also has scheduled Melatonin. Vancomycin discontinued following review of pathology report. Continue Lisinopril at 5 mg due to persistent hypertension. Lovenox subcutaneous daily for DVT prophylaxis Appreciate consultation by Dr. Velazquez for recommendations regarding glycemic control. Continue to encourage work with PT and OT for ongoing strengthening Plan - 07/03/17 ([place]) Overall, Cedric is doing well and states that he feels like he is getting stronger and is eager for discharge. Hopeful discharge home on 07/05. Continue to encourage participation in therapies and pain control. Continues to have phantom pain to right stump, though states pain is well controlled. Continue with bowel motivation. Bowels are moving and appetite is good. Blood sugars variable with high at 254 and low at49. He denies any symptoms with hypoglycemia. Dr. Velazquez contacted and decreased evening levemir to 42 units (decreased from 46 units). Continue with Novolog 10 units ACB, 11 units ACL and 17 units ACS. Continue to monitor closely. Appreciate Dr. Velazquez's time and expertise. Blood pressure continues to be elevated. Currently on prinivil 5mg QHS. Will start Norvasc 5mg QAM today and continue to monitor. Labs on 06/29 revealed increased in SCr to 1.5, which is around base line. Will check CBC and BMP now to monitor blood counts, electrolytes and renal function. Continue prinivil 5mg. If SCr continues to elevate, may need to decrease prinivil back to home dose of 2.5 and consider addition of beta-shama (metoprolol 25mg BID). Overall, doing well and anticipate discharge in near future. Time spent with patient: 25 - 35 minutes Discharge Plan - Med Rec/Dispo Referrals/Follow Up: Andrea Mo II, MD [Family Provider] - (Dr. Sienna Mo on 07/06/17 at 2:15 pm for Hosp. follow-up. [address] [place] [id number]) Amilcar Velazquez MD [Physician] - (Dr. Khris Velazquez on 08/31/17 at 2:30 pm for follow-up. [address] [place] [id number]) Jc Carrion PA [Physician Geotechnician] - (SUGAR Obregon on 07/11/17 at 8:30 am for follow-up. [address] [place] [address]) Truven Instructions: Below the Knee Amputation (DC), Hypoglycemia in a Person with Diabetes (GEN), Fall Prevention (GEN) Prescriptions: New Acetaminophen [Tylenol] 650 mg PO Q5H PRN tab PRN Reason: Discomfort Amlodipine [Norvasc] 5 mg PO DAILY tab Ferrous Sulfate [Feosol] 324 mg PO WB tab Insulin Aspart [NovoLOG] 10 unit SQ ACB15 vial Insulin Aspart [NovoLOG] 17 unit SQ ACS vial Lisinopril [Prinivil] 5 mg PO HS tab Melatonin 4 mg PO HS tab Nicotine Patch [Nicoderm] 21 mg TD DAILY #30 patch Oxycodone/Apap 7.5/325 [Percocet 7.5/325] 1 - 2 tab PO Q4H PRN #40 tab PRN Reason: Pain Senna + Docusate [Senna Plus Tablet] 1 tab PO BID tab Bisacodyl Supp [Dulcolax] 10 mg RECTALLY DAILY PRN suppositor PRN Reason: Constipation Insulin Aspart [NovoLOG] 11 unit SQ ACL vial Insulin Detemir [Levemir] 44 unit SQ HS vial Milk of Magnesia [Mom] 30 ml PO DAILY PRN udc PRN Reason: Constipation Nicotine Patch Removal 1 removal TD DAILY patch Continue Omeprazole 20 mg PO ACB Pravastatin [Pravachol] 20 mg PO HS PEG 3350 17gm PACKET [Miralax] 17 gm PO DAILY PRN packet PRN Reason: Constipation Clopidogrel Bisulfate [Plavix] 75 mg PO DAILY #0 Mirtazapine 7.5 mg PO HS #30 tab Discontinued Zolpidem [Ambien] 5 mg PO HS #10 tab Acetaminophen [Tylenol] 650 mg PO Q5H PRN tab PRN Reason: Discomfort Bisacodyl Supp [Dulcolax] 10 mg RECTALLY DAILY PRN suppositor PRN Reason: Constipation Insulin Aspart [NovoLOG] 19 unit SQ TIDWM vial Insulin Detemir [Levemir] 46 unit SQ HS vial Nicotine Patch [Nicoderm] 21 mg TD DAILY patch Nicotine Patch Removal 1 removal TD DAILY patch Lisinopril 2.5 mg PO HS #0 Enoxaparin Sodium [Lovenox] 40 mg SQ DAILY syringe Milk of Magnesia [Mom] 30 ml PO DAILY PRN udc PRN Reason: Constipation Oxycodone *IR* [Roxicodone *Ir*] 5 mg PO Q4H PRN tab PRN Reason: Pain Vancomycin [Vancocin] 1,750 mg IV Q12H vial - Disposition 01 Discharged Home, Self-Care - Dismissal Complete Discharge Instructions are:: Incomplete
== END 2017-07-05 14:45 | disposition home or self-care (01) | DRG 561 ==
PROVIDERS: ADMIT Internal Medicine; ATTEND Internal Medicine

== ENCOUNTER 2017-07-13 12:14 | Inpatient (IN) ==
[2017-07-13 12:36] VITALS: BMI 26.2
[2017-07-13] MEDS ORDERED: VANCOMYCIN - PHARMACY CONSULT MC ONE (12:50)
[2017-07-13] MEDS: NS 1,000 ML IV SCH (13:03)
--- NOTE | 2017-07-13 13:45 | Wound Care Progress Note ---
Wound Management - Patient Status Premedicated Prior to Dressing Change: No - Wound Right Leg Wound Present on Admission?: Yes (Right BKA incisional site) Length: 1 Width: 20 Depth: 3 Wound Bed Appearance: Beefy Red Linnette Wound Appearance: Bright Red Tunneling: No Undermining: No Drainage Description: Serosanguineous Drainage Amount: Moderate Drainage Odor: No Odor Dressing Status: Changed Packing Type: Woundvac Sponge Number of Packing Pieces Placed?: 4 Primary Dressing: Transparent Drape Secondary Dressing: Trac Pad Dressing Change Date: 07/13/17 Dressing Change Time: 13:45 Dressing Change Patient Tolerance: Tolerated Well
[2017-07-13] MEDS: OXYCODONE/APAP 7.5 MG/325 MG TABLET PO PRN ×3 (14:10→22:33)
--- NOTE | 2017-07-13 15:05 | Pharmacy Consult-Antibiotics ---
Pharmacy Consult-Vancomycin - Laboratory Information WBC 8.0 T/MM3 (4.5-11.0) 07/13/17 13:21 BUN 29.0 MG/DL (9-20) H 07/13/17 13:21 Creatinine 1.4 MG/DL (0.8-1.5) 07/13/17 13:21 - Consult Information Mr Bazzi is in with an infected leg which requires vancomycin therapy. Lab values as above. Will start with vancomycin 1750mg IV q12h. Will draw a trough and evaluate on Sunday 07/15. Thank you.
[2017-07-13] MEDS: MELATONIN 5 MG TABLET PO SCH (21:10)
[2017-07-13] MEDS: PRAVASTATIN 20 MG TABLET PO SCH (21:10)
[2017-07-13] MEDS: LISINOPRIL 5 MG TABLET PO SCH (21:10)
[2017-07-13] MEDS ORDERED: INSULIN GLARGINE 100unit/ml INJECTION SQ ONE (21:53)
[2017-07-14] MEDS: OXYCODONE/APAP 7.5 MG/325 MG TABLET PO PRN ×4 (03:18→22:47)
[2017-07-14] MEDS: OMEPRAZOLE 20 MG CAPSULE PO SCH (07:31)
--- NOTE | 2017-07-14 08:01 | Orthopedic Progress Note ---
Date: Subjective/Severity of Illness: Mr. Bazzi has no complaints. Wound vac is on an working. Cultures and Gram stain are pending. Orthopedic Objective PO Vital signs: Temperature 97.1 F 07/14/17 07:45 Pulse Rate 73 07/14/17 07:45 Respiratory Rate 18 07/14/17 07:45 Blood Pressure 167/68 H 07/14/17 07:45 Pulse Oximetry 97 07/14/17 07:45 Height and Weight: Height 6 ft 5 in Weight 224 lb 13.944 oz Body Mass Index 26.2 - Constitutional General Appearance: Present: alert, orientated x3, no acute distress - Respiratory Exam Present: non-labored - Cardiovascular Exam Present: pedal pulses intact Capillary Refill: < 2-3 Seconds - Abdominal Exam Absent: tenderness - Extremities Exam Comments: Wound vac on and working on left stump - Surgical Site Drains Present: negative pressure therapy - Neurological Exam Present: no deficits - Wound Management Right Leg Wound Type: Amputation Wound Length: 1 Wound Width: 20 Wound Depth: 3 Bed Appearance: Beefy Red Surrounding Tissue Appearance: Bright Red Drainage Description: Serosanguineous Drainage Amount: Moderate Drainage Odor: No Odor Dressing Status: Changed Packing Type: Woundvac Sponge Number of Packing Pieces Placed?: 4 Dressing Change Date: 07/13/17 Dressing Change Time: 13:45 Dressing Change Patient Tolerance: Tolerated Well - Labs Result Diagrams: 07/13/17 13:21 07/13/17 13:21 Abnormal lab results 07/13/17 07/13/17 Range/Units 13:21 13:21 RBC 3.92 L (4.50-5.90) M/MM3 Hgb 11.3 L (13.5-17.5) GM/DL Hct 34.9 L (41-53) % Plt Count 465 H (130-400) T/MM3 MPV 9.1 L (9.4-12.4) UM3 Immature Gran % (Auto) 0.8 H (0.0-0.5) % Eos % (Auto) 6.4 H (0-4) % Abs Immat Gran (auto) 0.06 H (0.00-0.03) T/MM3 Carbon Dioxide 31 H (22-30) MEQ/L BUN 29.0 H (9-20) MG/DL Glucose 140 H (75-110) MG/DL C-Reactive Protein 10.3 H (0-9) MG/L H & H 07/13/17 Range/Units 13:21 Hgb 11.3 L (13.5-17.5) GM/DL Hct 34.9 L (41-53) % Orthopedic Assessment and Plan (1) Dehiscence of amputation stump Status: Acute Assessment and Plan: continue wound vac and Vanco until Culture and sensitivities are back Hospital Course Summary Disclaimer: The visit summary below is not to be considered part of the above Progress Note.
[2017-07-14] MEDS: NS 1,000 ML IV SCH (08:12)
[2017-07-14] MEDS: CLOPIDOGREL 75 MG TABLET PO SCH (08:52)
[2017-07-14] MEDS: INSULIN ASPART 100unit/ml INJECTION SQ SCH ×2 (08:53→14:49)
[2017-07-14] MEDS ORDERED: CALCIUM CARBONATE Chewable 500mg TABLET PO ONE (16:56)
[2017-07-14] MEDS ORDERED: CALCIUM CARBONATE Chewable 500mg TABLET PO PRN (16:59)
[2017-07-14] MEDS ORDERED: INSULIN ASPART 100unit/ml INJECTION SQ SCH (17:30)
[2017-07-14] MEDS ORDERED: INSULIN GLARGINE 100unit/ml INJECTION SQ SCH ×2 (21:00)
[2017-07-14] MEDS ORDERED: INSULIN GLARGINE 100unit/ml INJECTION SQ ONE (21:40)
[2017-07-14] MEDS: MELATONIN 5 MG TABLET PO SCH (22:18)
[2017-07-14] MEDS: LISINOPRIL 5 MG TABLET PO SCH (22:40)
[2017-07-14] MEDS: PRAVASTATIN 20 MG TABLET PO SCH (22:40)
[2017-07-15] MEDS: NS 1,000 ML IV SCH ×3 (00:03→11:30)
[2017-07-15 08:02] VITALS: BP 159/73; PULSE 77; RESP 22; TEMP 96.5; O2SAT 98
--- NOTE | 2017-07-15 08:25 | Endocrinology Progress Note ---
Subjective Interval history: Feels OK this morning. Had no further hypoglycemia after episode yesterday when lunch was late. FBS of 61 did not bother him this morning. Exam Vital signs: Temperature 96.5 F L 07/15/17 07:58 Pulse Rate 77 07/15/17 07:58 Respiratory Rate 22 07/15/17 07:58 Blood Pressure 159/73 H 07/15/17 07:58 Pulse Oximetry 98 07/15/17 07:58 - Constitutional no acute distress, well developed, thin - Routine HEENT Exam Head: Present: normocephalic, atraumatic Eye: Present: EOMI ENT: Present: mucous membranes moist - Routine Neck Exam Absent: thyromegaly - Routine Respiratory Exam Absent: dyspnea - Routine Cardiovascular Exam Present: RRR. Absent: murmur - Routine Abdominal Exam Present: soft, normoactive bowel sounds - Routine Extremities Exam Comments: Bilateral BKA. - Routine Skin Exam Present: dry, warm - Routine Neurological Exam Present: alert, oriented X3, moving all extremities - Routine Psychiatric Exam Present: normal affect, normal thought process, good insight, good judgment - Additional findings Additional findings: Laboratory Tests 07/14/17 07/14/17 07/14/17 14:14 18:55 20:36 Glucometer 169 154 134 07/14/17 07/15/17 23:19 06:51 Glucometer 152 61 Assessment and Plan (1) Hypoglycemia associated with type 2 diabetes mellitus Current visit: Yes Status: Acute Should do better on lower dose of Lantus. Advised him to call if sugars recur below 60. (2) Diabetes mellitus type 2, controlled Problem details: uncertain control, but last A1c was too high (9.6%) Current visit: No Status: Chronic Good control. 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
[2017-07-15] MEDS: INSULIN ASPART 100unit/ml INJECTION SQ SCH ×2 (09:09→12:30)
[2017-07-15] MEDS: CLOPIDOGREL 75 MG TABLET PO SCH (09:10)
[2017-07-15] MEDS: OXYCODONE/APAP 7.5 MG/325 MG TABLET PO PRN (09:10)
[2017-07-15] MEDS: OMEPRAZOLE 20 MG CAPSULE PO SCH (09:12)
--- NOTE | 2017-07-15 10:51 | Consultation ---
DATE OF CONSULT 07/14/2017 REASON FOR CONSULTATION Uncontrolled diabetes. HISTORY OF PRESENT ILLNESS Mr. Bazzi was recovering from his recent right below-knee amputation and doing well until he fell on his stump prior to admission and had dehiscence of the incision. He was admitted and had fairly good control of his diabetes until the day after admission when his lunch was late to arrive and blood sugar fell to 49. This hypoglycemia resolved with snacking and I was consulted for insulin adjustment. ALLERGIES Penicillin. PAST MEDICAL HISTORY Type 2 diabetes mellitus in variable control, long-term current use of insulin, diabetic peripheral neuropathy, diabetic nephropathy, status post right toe amputation, status post left BKA, status post right BKA. FAMILY HISTORY Remarkable for hypertension and heart disease. SOCIAL HISTORY The patient is . He is totally disabled. He continues to smoke every day. He does not drink alcohol except on special occasions. REVIEW OF SYSTEMS Some residual right stump pain. Otherwise noncontributory. PHYSICAL EXAM Afebrile with stable vital signs. CONSTITUTIONAL: Well-developed, well-nourished male, alert, oriented and in no acute distress. HEENT: Normocephalic, atraumatic. NECK: Without thyromegaly or lymphadenopathy. LUNGS: Clear. HEART: Regular rate and rhythm without murmur. ABDOMEN: Normal bowel sounds without masses, tenderness or organomegaly. EXTREMITIES: Bilateral BKA. NEUROLOGIC: Moves all extremities. PSYCHIATRIC: Affect is normal. ASSESSMENT 1. Type 2 diabetes mellitus in fair control usually. 2. Hypoglycemia due to a little too much basal insulin. 3. Peripheral neuropathy. This is no longer an issue since his lower right leg has been amputated. 3. Diabetic nephropathy. 4. Dehiscence of right BKA stump. RECOMMENDATIONS 1. Reduce bedtime Lantus to 40 units. 2. Continues Humalog 10 units for breakfast and 11 units for lunch and supper. 3. Follow blood sugars fasting and 2 hours p.c. 4. I discussed with the patient that as his wound continues to heal he may require further insulin reduction due to less physical stress. Thank you very much for asking my assistance in caring for this gentleman. I will follow him along with you while he remains in the hospital. SHAMIKA
--- NOTE | 2017-07-15 11:10 | Pharmacy Consult-Antibiotics ---
Pharmacy Consult-Vancomycin - Laboratory Information WBC 8.0 T/MM3 (4.5-11.0) 07/13/17 13:21 BUN 29.0 MG/DL (9-20) H 07/13/17 13:21 Creatinine 1.2 MG/DL (0.8-1.5) D 07/15/17 04:07 Vancomycin Trough 22.72 UG/ML (15-20) H* 07/15/17 04:07 - Consult Information Morning dose not given due to elevated trough. Will give dose today at noon (20 hrs after last dose). New dose to be vancomycin 2000mg IV q18h. Thank you.
[2017-07-15] MEDS ORDERED: INSULIN ASPART 100unit/ml INJECTION SQ SCH ×2 (12:30→17:30)
--- NOTE | 2017-07-15 13:52 | Discharge Summary ---
Orthopedic Discharge Info Date of admission: 07/13/17 12:14 Anticipated date of discharge: 07/15/17 Primary care physician: Andrea Mo II, MD Attending Physician: Abdirashid James MD Consults: 07/13/17 12:50 Wound Vein Clinic Consult [CONS] Routine 07/14/17 13:54 Physician Consult [CONS] Routine Consulting Provider: Amilcar Velazquez Reason For Exam: diabetic control Ordering Provider has Notified Patrol Inspector: Yes - Discharge Diagnosis (1) Dehiscence of amputation stump Status: Acute - Procedures Procedures: Procedures Ambulation and gait training (07/28/12) Detachment at Right Lower Leg, Mid, Open Approach (06/20/17) Exercise, not elsewhere classified (07/28/12) Occupational therapy (07/28/12) - Laboratory Result Diagrams: 07/13/17 13:21 07/15/17 04:07 Laboratory: Abnormal lab results 07/15/17 Range/Units 04:07 Vancomycin Trough 22.72 H* (15-20) UG/ML H & H 07/13/17 Range/Units 13:21 Hgb 11.3 L (13.5-17.5) GM/DL Hct 34.9 L (41-53) % Orthopedic Discharge HPI - HPI Comments Pt had a left BKA recently that was erythemic and appeared to be infected. He was having some drainage and appeared to be worsening. He was seen in wound clinic and recommendations were for hospitalization with IV Vancomycin while cultures were pending. Orthopedic Hospital Course Hospital course: 07/15/17 13:56 Pt was placed in the hospital for tx of left BKA stump superficial wound infection. He was started on IV Vanco which was managed by the pharmacy. Dr Velazquez was consulted for management of his diabetic needs. Adjustments were made as needed but overall was in good control. Pain was well controlled. A wound vac was placed to promote healing and will be followed in outpatient wound clinic next week. Cultures obtained in wound clinic prior to the admission and have grown out Staph Aureus that is pansensitive. He was taken off IV vancomycin and placed on oral Levaquin 500mg daily. Discharge arrangements made by a collaborative effort between the patient and Case Management. Follow-up is scheduled next week in wound clinic. Discharge instructions given by orthopedic providers and nursing staff at discharge. Discharge condition was good. Ongoing care required?: Yes Discharge Plan - Med Rec/Dispo Referrals/Follow Up: Abdirashid James MD [Physician] - 07/18/17 8:30 am (In wound clinic for wound vac change.) Prescriptions: New CALCIUM CARBONATE Chewable [Tums] 500 mg PO O PRN tab.chew PRN Reason: Indigestion Insulin Glargine,Hum.rec.anlog [Lantus] 40 unit SQ HS vial Insulin Aspart [NovoLOG] 10 unit SQ NOON vial Insulin Aspart [NovoLOG] 8 unit SQ WB vial Levofloxacin [Levaquin] 500 mg PO DAILY #10 tab Insulin Aspart [NovoLOG] 11 unit SQ WS vial Continue Omeprazole 20 mg PO ACB Pravastatin [Pravachol] 20 mg PO HS Lisinopril [Prinivil] 5 mg PO HS tab Oxycodone/Apap 7.5/325 [Percocet 7.5/325] 1 - 2 tab PO Q4H PRN #40 tab PRN Reason: Pain Melatonin 15 mg PO HS Clopidogrel Bisulfate [Plavix] 75 mg PO DAILY #0 Milk of Magnesia [Mom] 30 ml PO DAILY PRN udc PRN Reason: Constipation Blood Sugar Diagnostic [Contour] 1 strip .ROUTE .MEDSUPPLY Discontinued Insulin Lispro [HumaLOG] 10 - 12 unit SQ AM Insulin Lispro [HumaLOG] 11 units SQ WS Insulin Glargine [Lantus] 42 unit SQ HS Insulin Lispro [HumaLOG] 11 unit SQ NOON Keflex (cephalexin) 500 mg capsule 500 mg PO QID 10 Days #40 cap - Disposition 01 Discharged Home, Self-Care - Dismissal Complete Discharge Instructions are:: Complete
[2017-07-16] MEDS ORDERED: LEVOFLOXACIN 500 MG TABLET PO SCH (06:30)
[2017-07-16] MEDS ORDERED: INSULIN ASPART 100unit/ml INJECTION SQ SCH (08:00)
--- NOTE | 2017-07-16 10:59 | Right on Track Program ---
Right on Track Program Date of Discharge: 07/15/17 Home Medications: Home Medications Medication Instructions Recorded Confirmed Clopidogrel Bisulfate [Plavix] 75 mg PO DAILY #0 10/27/10 07/13/17 Omeprazole 20 mg PO ACB 03/24/17 07/13/17 Pravastatin [Pravachol] 20 mg PO HS 03/24/17 07/13/17 Blood Sugar Diagnostic [Contour] 1 strip .ROUTE .MEDSUPPLY 07/12/17 07/13/17 Melatonin 15 mg PO HS 07/12/17 07/13/17 Previous Rx's Medication Instructions Recorded Lisinopril [Prinivil] 5 mg PO HS tab 07/05/17 Milk of Magnesia [Mom] 30 ml PO DAILY PRN udc 07/05/17 Oxycodone/Apap 7.5/325 [Percocet 1 - 2 tab PO Q4H PRN #40 tab 07/05/17 7.5/325] CALCIUM CARBONATE Chewable [Tums] 500 mg PO O PRN tab.chew 07/15/17 Insulin Aspart [NovoLOG] 8 unit SQ WB vial 07/15/17 Insulin Aspart [NovoLOG] 10 unit SQ NOON vial 07/15/17 Insulin Aspart [NovoLOG] 11 unit SQ WS vial 07/15/17 Insulin Glargine,Hum.rec.anlog 40 unit SQ HS vial 07/15/17 [Lantus] Levofloxacin [Levaquin] 500 mg PO DAILY #10 tab 07/15/17 - Right on Track Program 24 hour phone call 07/16/17 Date: 07/16/17 Right on Track Program: 24 Hour Follow-Up Discharge Summary Received: Yes Care Plan Received: Yes Follow Up: Follow Up Appointment Scheduled (Tuesday07/19/17 Wound clinic) Education: Diagnosis Education Reviewed Referral: Case Management, Primary Care Physician Comments: I spoke to Marco the day after hospital discharge. He is having a bit of nausea and upset stomach - this is fairly typical for him after a hospital stay. He attributes it to being "pumped full of antibiotics and salt water" and going from lying down to now sitting up most of the day. His pain is tolerable - he is on Percocet. 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 He hasn' t had hypoglycemia since discharge home, in contrast, his sugars were high last night. He will be going to the Wound Clinic on Tuesday to have his wound vac changed. Discussed With Patient and Caregiver: Yes Recommendations For Follow-up: ASSESSMENT 1. 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 Rx Levaquin. 2. DM2 - per Dr. Velazquez 3. Nausea PLAN Pt is being seen three times per week for his wound and declined a home visit but assured me that he would call if he has any new concerns. We reviewed what to watch for - fever/chills, increased pain, drainage, etc., and he knows to alert Dr. James immediately. I offered to call Rx Abhilash - at this time he doesn' t think he needs it but he may call me back if he changes his mind. Continue wound appts and close f/u; pt is high risk for readmission and complications. CM to follow via phone call on a weekly basis.
== END 2017-07-15 15:40 | disposition home or self-care (01) | DRG 565 ==
LOC: SRG 12:14
PROVIDERS: ADMIT Orthopaedic Surgery; ATTEND Orthopaedic Surgery

== ENCOUNTER 2017-08-05 09:26 | Inpatient (IN) ==
[2017-08-05 09:52] VITALS: BMI 26.6
--- NOTE | 2017-08-05 12:25 | Anesthesia Preoperative Report ---
Anesthesia Preoperative Record - Date and Time Date: 08/05/17 Preoperative Diagnosis: BKA revision M86.1 NPO Since Date: 08/04/17 NPO Since Time: 19:00 Allergies/Adverse Reactions: Allergies Allergy/AdvReac Type Severity Reaction Status Date / Time Penicillins Allergy Unknown HIVES Verified 08/05/17 09:53 - Vital Signs Vital Signs: Temperature 98.6 F 08/05/17 09:52 Pulse Rate 89 08/05/17 11:14 Respiratory Rate 16 08/05/17 09:52 Blood Pressure 139/65 08/05/17 09:52 Pulse Oximetry 100 08/05/17 09:52 Height and Weight: Height 1.98 m Weight 104.33 kg Body Mass Index 26.6 - Medications Inpatient Medications: Current Medications Lactated Ringer's (Lactated Ringers) 1,000 mls @ 50 mls/hr IV .Q20H SHAHRZAD Last Admin: 08/05/17 11:21 Dose: 50 mls/hr Home Medications: Home Medications Medication Instructions Recorded Confirmed Type Omeprazole 20 mg PO ACB 03/24/17 08/05/17 History Pravastatin [Pravachol] 20 mg PO HS 03/24/17 08/05/17 History Blood Sugar Diagnostic [Contour] 1 strip .ROUTE .MEDSUPPLY 07/12/17 08/05/17 History Melatonin 15 mg PO HS 07/12/17 08/05/17 History CephALEXin [Keflex] 500 mg PO QID 08/04/17 08/05/17 History Clopidogrel [Plavix] 1 tab PO DAILY 08/04/17 08/05/17 History Is Patient on Beta Ricardo?: No - Medical History Respiratory: DENIES: Sleep Apnea Comment Only: Chronic Obstructive Pulmonary Disease (COPD) (Pt denies) Cardiovascular: Reports: Hypertension, High Cholesterol, Other (peripheral arterial disease) Gastrointestional: Reports: Gastroesophageal Reflux Disease (occasionally, well controlled), Ulcer Neuro/Musculoskeletal: Reports: Back Problems, Headaches, Muscle Weakness, Other ([place] with hearing aid) Renal/Endocrine: Reports: Diabetes Mellitus Type 1, Diabetes Mellitus Type 2 ( INSULIN DEPENDENT) - Surgical History HEENT Surgeries: Reports: Eye Surgery (CATARACTS REMOVED), Tonsillectomy Cardiac Surgeries/Treatments: DENIES: Pacemaker GI Surgery/Treatments: Reports: Colonoscopy, EGD Surgery/Treatment: REPORT: Transurethral Resection Musculoskeletal Surgery/Tx: Reports: Shoulder Arthroscopy (RT SHOULDER), Other ( BILATERAL BTK AMPUTATION) Reproductive Surgery/Treatment: Reports: Vasectomy DENIES: Mastectomy Hx Family Anesthesia Reaction: No - Social History Smoking Status: Current every day smoker Packs per day: 2 Pack-years: 80 (started smoking at age 20. Continues to smoke 2 packs daily.) Hx Chewing Tobacco Use: No Second Hand Exposure: No Quit Date: 06/20/17 Substance Use Type: does not use Alcohol Intake: former Alcohol Intake Frequency: does not drink - Pertinent Findings Laboratory: CBC and BMP 08/05/17 10:01 BMP 08/05/17 10:01 Sodium 140 Potassium 4.4 Chloride 104 Carbon Dioxide 28 BUN 29.0 H Creatinine 1.3 Glucose 202 H Calcium 9.0 EKG: Sinus Rhythm - Physical Exam Respiratory Exam: Present: lungs clear Cardiovascular Exam: Present: regular rate and rhythm - Airway Assessment Mallampati Score: II TMD: 3 Fingerbreadths Neck Extension: fair Teeth: other (edentulous) Overall Assessment: no airway concerns - ASA ASA Score: 3 - Plan Anesthesia: General Inhalation Gases - Discussion Discussion: Discussed risks/options/alternatives of anesthesia and questions answered. Patient consents. Nursing pain assessment noted. Attestation Statement: Prior to the delivery of any anesthetic medication, I examined the patient, developed the plan, obtained the patient's consent and discussed the risk and benefits of the procedure with the patient/guardian. - Additional Information Seen by Anesthesia: Yes
[2017-08-05] MEDS ORDERED: NOZIN NASAL SWAB NAS ONE (12:30)
[2017-08-05] MEDS ORDERED: MIDAZOLAM 2mg/2ml INJECTION IVP ONE (12:44)
[2017-08-05] MEDS ORDERED: FentaNYL 250 MCG/5 ML INJECTION IVP ONE (12:45)
[2017-08-05] MEDS ORDERED: PROPOFOL 20 ML ONE (12:46)
[2017-08-05] MEDS ORDERED: FentaNYL 100 MCG/2 ML INJECTION ONE (12:47)
[2017-08-05] MEDS ORDERED: FentaNYL 100 MCG/2 ML INJECTION IVP ONE (12:55)
[2017-08-05] MEDS ORDERED: LR 1,000 ML IV SCH (13:45)
[2017-08-05] MEDS ORDERED: ONDANSETRON 4 MG/2 ML INJECTION IVP PRN ×2 (15:03→16:19)
[2017-08-05] MEDS ORDERED: METOCLOPRAMIDE 10mg/2ml INJECTION IVP PRN (15:03)
[2017-08-05] MEDS: HYDROMORPHONE 2 MG/ML INJECTION IVP PRN ×4 (15:07→15:37)
[2017-08-05] MEDS ORDERED: OXYCODONE/APAP 7.5 MG/325 MG TABLET PO PRN (16:19)
[2017-08-05] MEDS ORDERED: HYDROMORPHONE 2 MG/ML INJECTION IVP PRN (16:19)
[2017-08-05] MEDS: NS 1,000 ML IV SCH (16:36)
[2017-08-05] MEDS ORDERED: INSULIN ASPART 100unit/ml INJECTION SQ SCH (17:30)
[2017-08-05] MEDS ORDERED: MELATONIN 5 MG TABLET PO SCH (21:00)
[2017-08-05] MEDS ORDERED: INSULIN GLARGINE 100unit/ml INJECTION SQ SCH (21:00)
[2017-08-05] MEDS ORDERED: LISINOPRIL 5 MG TABLET PO SCH (21:00)
[2017-08-05] MEDS ORDERED: PRAVASTATIN 20 MG TABLET PO SCH (21:00)
[2017-08-05] MEDS: CEFAZOLIN 2 G in NS 100 ML IV SCH (21:06)
[2017-08-05] MEDS: HYDROCODONE/APAP 7.5 MG/325 MG TABLET PO PRN (21:12)
[2017-08-06 03:20] VITALS: O2SAT 98
[2017-08-06 03:23] VITALS: BP 131/60; PULSE 93; RESP 20; TEMP 98.1
[2017-08-06] MEDS: HYDROCODONE/APAP 7.5 MG/325 MG TABLET PO PRN (03:25)
[2017-08-06] MEDS: CEFAZOLIN 2 G in NS 100 ML IV SCH (05:32)
[2017-08-06] MEDS ORDERED: NON-FORMULARY MEDICATION 1 EACH EACH (Omeprazole [Omeprazole] 20 MG) PO SCH (06:30)
[2017-08-06] MEDS ORDERED: OMEPRAZOLE 20 MG CAPSULE PO SCH (06:30)
[2017-08-06] MEDS ORDERED: INSULIN ASPART 100unit/ml INJECTION SQ SCH ×2 (08:00→12:00)
[2017-08-06] MEDS: NS 1,000 ML IV SCH (08:20)
[2017-08-06] MEDS ORDERED: CLOPIDOGREL 75 MG TABLET PO SCH (09:00)
[2017-08-06] MEDS ORDERED: INSULIN ASPART 100unit/ml INJECTION SQ PRN (09:52)
--- NOTE | 2017-08-06 10:23 | Operative Note ---
DATE OF PROCEDURE 08/05/2017 PREOPERATIVE DIAGNOSIS Dehiscence of right BKA stump with osteomyelitis. POSTOPERATIVE DIAGNOSIS Dehiscence of right BKA stump with osteomyelitis. PROCEDURE Surgical debridement of right BKA stump with osteotomies and wound VAC placement. SURGEON Abdirashid James MD ANESTHESIA General. COMPLICATIONS None. DESCRIPTION OF PROCEDURE Mr. Bazzi and his right BKA stump were identified and marked in the preoperative holding area. He was brought back to the operating suite and placed supine on the operating table. He was placed under general anesthesia. The right lower extremity was prepped and draped in my normal sterile. Time- out was performed. I began by examining his wound. His lateral one-third of the incision was completely healed. There was an opening in the medial as well as the most lateral aspect of the wound. This was reopened sharply, completely. I then debrided some devitalized soft tissue. There was some necrotic tissue around the tibia, especially inferiorly. All of this was removed sharply. I then performed an osteotomy to the tibia, approximately 12 mm. I took off another 2 mm. These were done with a saw. The MRI suggested osteomyelitis for 1 cm. I then did the same thing to the fibula, first removing about a centimeter and then another additional 2 mm. The wound was then thoroughly irrigated with 3 liters of normal saline. I then reapproximated the deep subcutaneous tissue with #1 PDS and then I placed a wound VAC within the wound and set it to 125 mm of continuous suction. It achieved a good seal. He was then allowed to awaken from general anesthesia. The drapes were removed and he was taken to the recovery room under the care of Anesthesia. He tolerated the procedure well and there were no complications. The bone was sent for pathology to check margins as well as for culture. [facility] [place]
--- NOTE | 2017-08-06 11:03 | Orthopedic Progress Note ---
Date: Date: 08/06/17 Time: 1101 Subjective/Severity of Illness: No new complaints. He would like to go home today if possible. Orthopedic Objective Vital signs: Temperature 98.1 F 08/06/17 03:22 Pulse Rate 93 08/06/17 03:22 Respiratory Rate 20 08/06/17 03:22 Blood Pressure 131/60 08/06/17 03:22 Pulse Oximetry 98 08/06/17 03:22 Height and Weight: Height 6 ft 6 in Weight 104.33 kg Body Mass Index 26.6 - Constitutional General Appearance: Present: no acute distress - Respiratory Exam Present: non-labored - Cardiovascular Exam Present: Regular Rate/Rhythm, pedal pulses intact - Extremities Exam Absent: calf tenderness - Psychiatric Exam Present: alert - Wound Management right below knee Comments: Right BKA stump with wound VAC in place with good suction. - Labs Result Diagrams: 08/05/17 10:01 Orthopedic Assessment and Plan (1) Dehiscence of amputation stump Status: Acute Assessment and Plan: Continue wound VAC and plan to change tomorrow morning at 9:00. IV antibiotics per Dr. Webb. Anticipate discharge today with return to wound clinic on Tuesday the . At that appointment he will need be nothing by mouth in anticipation of possibly closing his wound. Hospital Course Summary Disclaimer: The visit summary below is not to be considered part of the above Progress Note.
[2017-08-06] MEDS ORDERED: CEFAZOLIN 1 G INJECTION IVP ONE (12:30)
== END 2017-08-06 12:20 | disposition home or self-care (01) | DRG 493 ==
LOC: SUR 09:26 → SRG 09:27
PROVIDERS: ADMIT Orthopaedic Surgery; ATTEND Orthopaedic Surgery